=== PATIENT | male | born 1945 | race Caucasian/White ===

== ENCOUNTER → 2021-03-17 14:52 | Outpatient (BNVA) | payer OTHER, SELFPAY | PROVIDERS: PCP Nurse Practitioner Family; Visit Provider Internal Medicine | DX: J44.9 Chronic obstructive pulmonary disease, unspecified (principal); R06.00 Dyspnea, unspecified | CPT/HCPCS: 99212 ==

== ENCOUNTER → 2021-04-12 14:41 | Outpatient (BNVA) | payer OTHER, SELFPAY | PROVIDERS: PCP Nurse Practitioner Family; Visit Provider Internal Medicine | DX: R06.00 Dyspnea, unspecified (principal); J44.9 Chronic obstructive pulmonary disease, unspecified; R09.02 Hypoxemia | CPT/HCPCS: 99212 ==

== ENCOUNTER → 2021-05-09 13:47 | Outpatient (BNVA) | payer MEDICARE, SELFPAY | PROVIDERS: PCP Nurse Practitioner Family; Visit Provider Internal Medicine Cardiovascular Disease | DX: I25.10 Atherosclerotic heart disease of native coronary artery without angina pectoris (principal); J96.11 Chronic respiratory failure with hypoxia | CPT/HCPCS: 93005; 99212 ==

== ENCOUNTER → 2021-06-14 14:48 | Outpatient (BNVA) | payer OTHER, SELFPAY | PROVIDERS: PCP Nurse Practitioner Family; Visit Provider Internal Medicine | DX: J44.9 Chronic obstructive pulmonary disease, unspecified (principal); R09.02 Hypoxemia; I25.10 Atherosclerotic heart disease of native coronary artery without angina pectoris; T78.49XA Other allergy, initial encounter; Z87.891 Personal history of nicotine dependence; Z99.81 Dependence on supplemental oxygen; Z79.52 Long term (current) use of systemic steroids; Z79.899 Other long term (current) drug therapy | CPT/HCPCS: 99212 ==

== ENCOUNTER → 2021-09-12 14:48 | Outpatient (BNVA) | payer OTHER, SELFPAY | PROVIDERS: PCP Nurse Practitioner Family; Visit Provider Internal Medicine | DX: J44.9 Chronic obstructive pulmonary disease, unspecified (principal); J96.11 Chronic respiratory failure with hypoxia; R06.00 Dyspnea, unspecified | CPT/HCPCS: 99212 ==

== ENCOUNTER → 2022-01-10 14:47 | Outpatient (BNVA) | payer OTHER, SELFPAY | PROVIDERS: PCP Nurse Practitioner Family; Visit Provider Internal Medicine | DX: J44.9 Chronic obstructive pulmonary disease, unspecified (principal); I25.10 Atherosclerotic heart disease of native coronary artery without angina pectoris; R09.02 Hypoxemia; R06.00 Dyspnea, unspecified; T78.49XA Other allergy, initial encounter; Z87.891 Personal history of nicotine dependence; Z98.890 Other specified postprocedural states; Z99.81 Dependence on supplemental oxygen; Z79.52 Long term (current) use of systemic steroids; Z79.899 Other long term (current) drug therapy | CPT/HCPCS: 94618; 99212 ==

== ENCOUNTER → 2022-05-16 14:39 | Outpatient (BNVA) | payer OTHER, SELFPAY | PROVIDERS: PCP Nurse Practitioner Family; Visit Provider Internal Medicine | DX: J44.9 Chronic obstructive pulmonary disease, unspecified (principal); J96.11 Chronic respiratory failure with hypoxia; Z79.52 Long term (current) use of systemic steroids; Z79.899 Other long term (current) drug therapy; Z99.81 Dependence on supplemental oxygen | CPT/HCPCS: 99212 ==

== ENCOUNTER → 2022-05-23 13:34 | Outpatient (BNVA) | payer OTHER, SELFPAY | PROVIDERS: PCP Nurse Practitioner Family; Referring Provider Nurse Practitioner Family; Visit Provider Internal Medicine Cardiovascular Disease | DX: I25.10 Atherosclerotic heart disease of native coronary artery without angina pectoris (principal); R07.2 Precordial pain; Z79.82 Long term (current) use of aspirin; Z79.899 Other long term (current) drug therapy | CPT/HCPCS: 93005; 99212 ==

== ENCOUNTER 2022-09-14 15:53 | Outpatient (REF) | payer OTHER, SELFPAY ==
--- NOTE | ~2022-09-14 | XR_ITS ---
EXAMINATION: XR CHEST CLINICAL INFORMATION: Post Covid condition COMPARISON: Previous chest x-ray most recent December 1999 TECHNIQUE: 2 views of the chest were obtained. FINDINGS: Cardiac mediastinal contours are stable. There are increased linear retrosternal markings seen in the lateral view questionable for scarring or subsegmental atelectasis. The lungs are otherwise clear. There is no pleural effusion or pneumothorax. There are mild degenerative changes of the spine. XR/XR chest 2V IMPRESSION: Increased retrosternal linear markings on the lateral view questionable for scarring or subsegmental atelectasis.
== END 2022-09-14 15:54 | disposition home or self-care (01) ==
LOC: HO.XRAY 15:53
PROVIDERS: Visit Provider Internal Medicine
DX: J44.9 Chronic obstructive pulmonary disease, unspecified (principal); R06.00 Dyspnea, unspecified; R09.02 Hypoxemia; U09.9 Post COVID-19 condition, unspecified
CPT/HCPCS: 71046; 99212

== ENCOUNTER 2022-10-22 23:07 | Inpatient (IN) | payer OTHER, SELFPAY ==
--- NOTE | ~2022-10-22 | XR_ITS ---
EXAMINATION: XR CHEST CLINICAL INFORMATION: Shortness of breath COMPARISON: 09/14/2022 TECHNIQUE: Frontal view of the chest was obtained. FINDINGS: Lung volumes are symmetric. There is new patchy opacity at the lateral left lung base. Coarsened appearance of the interstitium is similar to prior. No evidence of pneumothorax or significant pleural effusion. Biapical scarring is noted. Cardiac size is within normal limits. Calcification is present at the aortic arch. No acute osseous findings are seen. XR/XR chest 1V IMPRESSION: New patchy left basilar opacity suspicious for developing pneumonia in the proper clinical setting.
--- NOTE | 2022-10-22 23:21 | ECG_ITS ---
Test Reason : SOB Blood Pressure : / mmHG Vent. Rate : 110 BPM Atrial Rate : 110 BPM P-R Int : 126 ms QRS Dur : 060 ms QT Int : 314 ms P-R-T Axes : 065 056 053 degrees QTc Int : 424 ms Poor data quality Sinus tachycardia Nonspecific ST abnormality Abnormal ECG When compared with ECG of 27-JAN-2019 09:25, No significant change was found Referred By: Jerardo Barbosa Electronically Signed By:CARINA EUGENE MD
--- NOTE | 2022-10-22 23:25 | ED.SOB ---
HPI - SOB/Dyspnea General Chief Complaint: Dyspnea Stated Complaint: copd Time Seen by Provider: 10/22/22 23:14 Source: patient Mode of arrival: EMS Limitations: no limitations History of Present Illness HPI Narrative: Patient is 77 years old with history of severe COPD oxygen dependent 3 liter/minutes 24 hours, COVID infection on 08/30/2022, coronary disease severe branch vessel disease without confirmation as patient unable to get further tested because of lung condition comes in for increased shortness of breath which is going on since COVID got worse last few days Patient son and grand kid got positive for influenza 3 days ago since then patient is also getting more cough and wheezing. patient noticed leg edema for last few days no chest pain no fever does have cough mostly dry sometimes with mucoid expectoration no fever no chills,patient received albuterol treatment and Solu-Medrol by EMS. Related Data Home Medications Medication Instructions Recorded Confirmed albuterol sulfate 90 mcg/actuation 2 puff inhalation Q6H PRN 03/17/21 05/23/22 aerosol inhaler (ProAir HFA) tiotropium bromide 18 mcg capsule 1 cap inhalation DAILY 03/17/21 05/23/22 with inhalation device (Spiriva with HandiHaler) aspirin 81 mg tablet,delayed 81 mg PO DAILY 05/16/22 05/23/22 release Previous Rx's Medication Instructions Recorded ipratropium 0.5 mg-albuterol 3 mg 3 ml inhalation QID SEVERE COPD 03/25/21 (2.5 mg base)/3 mL nebulization 30 days #180 mL soln metoprolol succinate 25 mg 25 mg PO DAILY 90 days #90 tabs 12/29/21 tablet,extended release 24 hr atorvastatin 40 mg tablet 40 mg PO DAILY 90 days #90 tabs 02/03/22 mometasone-formoterol HFA 200 2 puff inhalation Q12H Asthma/copd 06/08/22 mcg-5 mcg/actuation aerosol 30 days #13 grams inhaler (Dulera) prednisone 5 mg tablet 5 mg PO DAILY #90 tabs 09/04/22 prednisone 5 mg tablet 5 mg PO BID COPD 14 days #21 tabs 09/14/22 Allergies Allergy/AdvReac Type Severity Reaction Status Date / Time No Known Allergies Allergy Verified 09/14/22 16:49 [No Known Allergies*] Soap & Cleansers Allergy Unknown Rash Uncoded 09/14/22 16:49 Review of Systems Review of Systems: Yes all other systems are reviewed and are negative [facility] Past Medical History Medical History CAD (coronary artery disease) COPD (chronic obstructive pulmonary disease) Dyspnea on effort Exercise hypoxemia Post covid-19 condition, unspecified Surgical History Hx of cardiac cath Hx of cataract removal with insertion of prosthetic lens Family History Family History Father CVD (cardiovascular disease) Mother No problems noted. Social History Social History Patient Tobacco Use Status: Former Tobacco user Advance Directives: No Advance Directives Information Provided: No Physical Exam Vital Signs: Vital Signs: Last Vital Signs Temp 98.3 F 10/23/22 01:05 Pulse 116 H 10/23/22 01:05 Resp 28 H 10/23/22 01:05 BP 95/48 L 10/23/22 01:05 Pulse Ox 98 10/23/22 01:05 O2 Del Method 10/23/22 01:05 O2 Flow Rate 3 10/23/22 01:05 Oxygen Flow Rate 3 10/22/22 23:30 BMI result Body Mass Index 27.3 Appearance: Alert. Oriented X3. Moderate respiratory distress Eyes: PERRLA, No Nystagmus ENT: Pharynx normal. Oral Mucosa moist Neck: Normal inspection. Neck supple. CVS: Normal heart rate and rhythm. Pulses normal. Respiratory: Moderate respiratory distress with prolonged expiration decreased air entry bilaterally bilateral wheezing no rales Abdomen: Soft and nontender. Bowel sounds are present, no mass palpable, no CVA tenderness Skin: Skin warm and dry. Normal skin color. Normal skin turgor. Extremities: 2+ lower extremity edema. No calf tenderness Neuro: Oriented X 3. No motor deficit. No sensory deficit.No cerebellar signs , cranial nerves II-XII intact Medications Administered Generic Name Dose Route Start Last Admin Trade Name Freq PRN Reason Stop Dose Admin Sodium Chloride 1,000 mls @ 999 mls/hr 10/23/22 01:10 10/23/22 01:14 Ns IV 12/05/22 02:10 999 mls/hr .Q1H1M ONE Administration Discontinued Medications Generic Name Dose Route Start Last Admin Trade Name Noble PRN Reason Stop Dose Admin Albuterol Sulfate 5 mg/ 0 mg 10/22/22 23:22 10/22/22 23:30 Albuterol/Ipratropium 3 ml INHALE 10/22/22 23:23 1 each ONCE ONE Administration Guaifenesin/Codeine Phosphate 10 ml 10/23/22 01:07 10/23/22 01:14 Guaifen/Codeine Sf 200/20/10ml 10 Ml Liquid PO 10/23/22 01:08 10 ml ONCE ONE Administration Ceftriaxone Sodium 1 gm/ 50 mls @ 100 mls/hr 10/23/22 00:08 10/23/22 00:24 Sodium Chloride IV 10/23/22 00:37 100 mls/hr ONCE ONE Administration Oseltamivir Phosphate 75 mg 10/23/22 01:03 10/23/22 01:14 Oseltamivir Phosphate 75 Mg Capsule PO 10/23/22 01:04 75 mg ONCE ONE Administration MDM - SOB/Dyspnea MDM Narrative Medical decision making narrative: Patient with severe COPD oxygen dependent with recent COVID infection came with increased shortness of breath influenza a is positive chest x-ray showed infiltrate likely atypical viral pneumonia patient's lactic acid level was elevated likely from hypoxia patient received IV fluids and IV antibiotics along with Tamiflu will admit patient for COPD, influenza pneumonia Differential Diagnosis Differential diagnosis: Likely acute exacerbation of chronic obstructive airways disease and congestive heart failure Medical Records Attestation: I reviewed the patient's medical records. Lab Data Attestation: I reviewed the patient's lab results. Result diagrams: 10/22/22 23:28 10/22/22 23:28 Labs: Lab Results 10/22/22 10/22/22 10/22/22 Range/Units 23:28 23:28 23:28 WBC 13.9 H (4.8-10.8) X10*3/uL RBC 2.89 L (4.60-5.80) X10*6/uL Hgb 9.0 L (14.0-18.0) g/dl Hct 27.5 L (42.0-52.0) % MCV 95.2 (80.0-98.0) fL MCH 31.1 (27.0-33.0) pg MCHC 32.7 (31.0-36.0) g/dl RDW 22.9 H (11.0-16.0) % Plt Count 246 (160-400) X10*3/uL MPV 10.3 (9.4-12.4) fL Immature Gran % (Auto) 0.6 H (0.0-0.4) % Neut % (Auto) 76.2 H (45-73) % Lymph % (Auto) 12.2 L (20-40) % [place] % (Auto) 10.5 (2-11) % Eos % (Auto) 0.1 (0-4) % Baso % (Auto) 0.4 (0-2) % Lymph # (Auto) 1.7 (1.2-4.9) X10*3/uL [place] # (Auto) 1.5 H (0.1-1.2) X10*3/uL Eos # (Auto) 0.0 (0.0-0.4) X10*3/uL Baso # (Auto) 0.1 (0.0-0.2) X10*3/uL Abs Immat Gran (auto) 0.08 H (0.00-0.03) X10*3/uL Absolute Neuts (auto) 10.6 H (2.0-8.3) x10*3/uL Absolute Nucleated RBC 0.060 H (0.0-0.012) X10*3/uL Nucleated RBC % (auto) 0.4 H (0.0-0.2) /100WBC PT 12.8 (10.0-13.1) SEC INR 1.1 (0.9-1.1) VBG pH (7.32-7.43) VBG pCO2 mmHg VBG pO2 mmHg VBG HCO3 (22-26) mmol/L VBG O2 Saturation % VBG Base Excess mmol/L Sodium 139 (135-145) mmol/L Potassium 4.8 (3.3-5.1) mmol/L Chloride 102 (96-108) mmol/L Carbon Dioxide 23 (22-29) mmol/L Anion Gap 19 (12-20) BUN 15 (9-16) mg/dL Creatinine 0.71 (0.5-1.4) mg/dL Estim Creat Clear Calc 88.5 Estimated GFR > 60 Random Glucose 90 (60-115) mg/dL Lactic Acid (0.5-2.0) mmol/L Calcium 8.6 (8.4-10.2) mg/dL Total Bilirubin 1.6 H (0.0-1.0) mg/dL AST 37 (5-37) U/L ALT 31 (0-40) U/L Alkaline Phosphatase 71 (39-117) U/L Troponin I High Sens (<3.5-35.0) ng/L B-Natriuretic Peptide (<100) pg/mL Total Protein 6.0 L (6.5-8.0) g/dL Albumin 3.7 (3.5-5.0) g/dL Influenza Type A (PCR) (Negative) Influenza Type B (PCR) (Negative) RSV RNA Qual (PCR) (Negative) SARS-CoV-2 RNA (RT-PCR) (Negative) 10/22/22 10/22/22 10/22/22 Range/Units 23:28 23:28 23:28 WBC (4.8-10.8) X10*3/uL RBC (4.60-5.80) X10*6/uL Hgb (14.0-18.0) g/dl Hct (42.0-52.0) % MCV (80.0-98.0) fL MCH (27.0-33.0) pg MCHC (31.0-36.0) g/dl RDW (11.0-16.0) % Plt Count (160-400) X10*3/uL MPV (9.4-12.4) fL Immature Gran % (Auto) (0.0-0.4) % Neut % (Auto) (45-73) % Lymph % (Auto) (20-40) % [place] % (Auto) (2-11) % Eos % (Auto) (0-4) % Baso % (Auto) (0-2) % Lymph # (Auto) (1.2-4.9) X10*3/uL [place] # (Auto) (0.1-1.2) X10*3/uL Eos # (Auto) (0.0-0.4) X10*3/uL Baso # (Auto) (0.0-0.2) X10*3/uL Abs Immat Gran (auto) (0.00-0.03) X10*3/uL Absolute Neuts (auto) (2.0-8.3) x10*3/uL Absolute Nucleated RBC (0.0-0.012) X10*3/uL Nucleated RBC % (auto) (0.0-0.2) /100WBC PT (10.0-13.1) SEC INR (0.9-1.1) VBG pH (7.32-7.43) VBG pCO2 mmHg VBG pO2 mmHg VBG HCO3 (22-26) mmol/L VBG O2 Saturation % VBG Base Excess mmol/L Sodium (135-145) mmol/L Potassium (3.3-5.1) mmol/L Chloride (96-108) mmol/L Carbon Dioxide (22-29) mmol/L Anion Gap (12-20) BUN (9-16) mg/dL Creatinine (0.5-1.4) mg/dL Estim Creat Clear Calc Estimated GFR Random Glucose (60-115) mg/dL Lactic Acid 3.0 H* (0.5-2.0) mmol/L Calcium (8.4-10.2) mg/dL Total Bilirubin (0.0-1.0) mg/dL AST (5-37) U/L ALT (0-40) U/L Alkaline Phosphatase (39-117) U/L Troponin I High Sens 14.3 (<3.5-35.0) ng/L B-Natriuretic Peptide 145 H (<100) pg/mL Total Protein (6.5-8.0) g/dL Albumin (3.5-5.0) g/dL Influenza Type A (PCR) (Negative) Influenza Type B (PCR) (Negative) RSV RNA Qual (PCR) (Negative) SARS-CoV-2 RNA (RT-PCR) (Negative) 10/22/22 10/22/22 Range/Units 23:33 23:45 WBC (4.8-10.8) X10*3/uL RBC (4.60-5.80) X10*6/uL Hgb (14.0-18.0) g/dl Hct (42.0-52.0) % MCV (80.0-98.0) fL MCH (27.0-33.0) pg MCHC (31.0-36.0) g/dl RDW (11.0-16.0) % Plt Count (160-400) X10*3/uL MPV (9.4-12.4) fL Immature Gran % (Auto) (0.0-0.4) % Neut % (Auto) (45-73) % Lymph % (Auto) (20-40) % [place] % (Auto) (2-11) % Eos % (Auto) (0-4) % Baso % (Auto) (0-2) % Lymph # (Auto) (1.2-4.9) X10*3/uL [place] # (Auto) (0.1-1.2) X10*3/uL Eos # (Auto) (0.0-0.4) X10*3/uL Baso # (Auto) (0.0-0.2) X10*3/uL Abs Immat Gran (auto) (0.00-0.03) X10*3/uL Absolute Neuts (auto) (2.0-8.3) x10*3/uL Absolute Nucleated RBC (0.0-0.012) X10*3/uL Nucleated RBC % (auto) (0.0-0.2) /100WBC PT (10.0-13.1) SEC INR (0.9-1.1) VBG pH 7.35 (7.32-7.43) VBG pCO2 49 mmHg VBG pO2 47 mmHg VBG HCO3 27 H (22-26) mmol/L VBG O2 Saturation 68.0 % VBG Base Excess 1.5 mmol/L Sodium (135-145) mmol/L Potassium (3.3-5.1) mmol/L Chloride (96-108) mmol/L Carbon Dioxide (22-29) mmol/L Anion Gap (12-20) BUN (9-16) mg/dL Creatinine (0.5-1.4) mg/dL Estim Creat Clear Calc Estimated GFR Random Glucose (60-115) mg/dL Lactic Acid (0.5-2.0) mmol/L Calcium (8.4-10.2) mg/dL Total Bilirubin (0.0-1.0) mg/dL AST (5-37) U/L ALT (0-40) U/L Alkaline Phosphatase (39-117) U/L Troponin I High Sens (<3.5-35.0) ng/L B-Natriuretic Peptide (<100) pg/mL Total Protein (6.5-8.0) g/dL Albumin (3.5-5.0) g/dL Influenza Type A (PCR) POSITIVE A (Negative) Influenza Type B (PCR) NEGATIVE (Negative) RSV RNA Qual (PCR) NEGATIVE (Negative) SARS-CoV-2 RNA (RT-PCR) NEGATIVE (Negative) ECG Data Attestation: I personally reviewed and interpreted this ECG as follows: Interpretation: Sinus tachycardia heart rate 110 beats per minute normal interval normal axis no acute ST wave changes no acute ischemia Critical Care Time Critical Care Time Critical Care Time: Yes Total Critical Care Time: 60 Attestation: The patient was critically ill with a high probability of imminent or life threatening deterioration. I spent greater than 70 minutes of discontinuous time evaluating the patient,delivering critical care at the bedside, discussing and evaluating pertinent data with consultants. Critical care time does not include time spent performing separately billable procedures or teaching. Total time spent performing critical care was 60 minutes. Discharge Plan Discharge Clinical Impression: COPD (chronic obstructive pulmonary disease), Post covid-19 condition, unspecified, Influenza A, Pneumonia due to influenza A virus Patient Disposition: Admitted As Inpatient
[2022-10-22 23:30] VITALS: BP 153/72; PULSE 114; RESP 40; O2SAT 100; BMI 27.3
[2022-10-22] MEDS: Albuterol Sulfate 5 MG, Albuterol/Iprat 2.5/0.5MG 3 ML 3 ML INHALE (23:30)
[2022-10-22 23:31] VITALS: PULSE 111; RESP 28; O2SAT 99
[2022-10-22 23:34] LABS: MANUAL DIFF FLAG NO
[2022-10-22 23:35] LABS: Basophils Absolute Auto 0.1 X10*3/uL (0.0-0.2); Basophils Percent Auto 0.4 % (0-2); Eosinophils Percent Auto 0.1 % (0-4); Hematocrit 27.5 % (42.0-52.0); Imm Gran Abs Auto 0.08 X10*3/uL (0.00-0.03); Imm Gran Pct Auto 0.6 % (0.0-0.4); Lymphocytes Absolute Auto 1.7 X10*3/uL (1.2-4.9); Lymphocytes Percent Auto 12.2 % (20-40); Mean Corpuscular HGB Conc 32.7 g/dl (31.0-36.0); Mean Corpuscular Hemoglobin 31.1 pg (27.0-33.0); Mean Corpuscular Volume 95.2 fL (80.0-98.0); Mean Platelet Volume 10.3 fL (9.4-12.4); Monocytes Absolute Auto 1.5 X10*3/uL (0.1-1.2); Monocytes Percent Auto 10.5 % (2-11); NRBC Pct Auto 0.4 /100WBC (0.0-0.2); Neutrophils Absolute Auto 10.6 x10*3/uL (2.0-8.3); Neutrophils Percent Auto 76.2 % (45-73); Platelet Count 246 X10*3/uL (160-400); Red Blood Count 2.89 X10*6/uL (4.60-5.80); Red Cell Distribution Width 22.9 % (11.0-16.0); White Blood Count 13.9 X10*3/uL (4.8-10.8)
[2022-10-22 23:39] LABS: VBG Base Excess 1.5 mmol/L; VBG HCO3 27 mmol/L (22-26); VBG pCO2 49 mmHg; VBG pH 7.35 (7.32-7.43); VBG pO2 47 mmHg
[2022-10-22 23:39] LABS: Venous Blood Gas Refer to POC result
[2022-10-22 23:40] LABS: INTERNATIONAL NORM RATIO 1.1 (0.9-1.1); Prothrombin Time 12.8 SEC (10.0-13.1)
[2022-10-22 23:53] LABS: Troponin-I High Sensitivity 14.3 ng/L (<3.5-35.0)
[2022-10-22 23:57] LABS: B Type Natriuretic Peptide 145 pg/mL (<100)
[2022-10-22 23:59] LABS: Alanine Aminotransferase 31 U/L (0-40); Albumin Level 3.7 g/dL (3.5-5.0); Alkaline Phosphatase 71 U/L (39-117); Anion Gap 19 (12-20); Aspartate Amino Transferase 37 U/L (5-37); Blood Urea Nitrogen 15 mg/dL (9-16); Calcium 8.6 mg/dL (8.4-10.2); Carbon Dioxide 23 mmol/L (22-29); Chloride 102 mmol/L (96-108); Creatinine Clr Calc Pharmacy 88.5; Estimated Glomerular Filt Rate > 60; Glucose Random 90 mg/dL (60-115); Potassium 4.8 mmol/L (3.3-5.1); Sodium 139 mmol/L (135-145)
[2022-10-23] VITALS (10 sets, daily range): BP systolic 95–124; BP diastolic 45–60; PULSE 76–116; RESP 12–28; TEMP 36.1–37.3; O2SAT 97–100; BMI 21.6
[2022-10-23] MEDS: cefTRIAXone sodium 1 GM in 0.9 % Sodium Chloride 50 ML IV (00:24)
[2022-10-23 00:43] LABS: Influenza A PCR POSITIVE (Negative); Influenza B PCR NEGATIVE (Negative); Resp Syncy Virus RNA Qual PCR NEGATIVE (Negative); SARS COV2 PCR INHOUSE NEGATIVE (Negative)
[2022-10-23] MEDS: guaiFEN/Codeine SF 200/20/10ML 10 ML LIQUID PO (01:14)
[2022-10-23] MEDS: 0.9 % Sodium Chloride 1,000 ML 999 ML IV ×2 (01:14→02:55)
[2022-10-23] MEDS: Oseltamivir Phosphate 75 MG CAPSULE PO ×3 (01:14→21:42)
[2022-10-23 01:15] LABS: Bilirubin Total 1.6 mg/dL (0.0-1.0)
[2022-10-23 01:31] LABS: Reflex Lactate? Lactic Acid Added
--- NOTE | 2022-10-23 02:09 | PM.IMHP ---
History of Present Illness Date of Service: 10/23/22 Chief Complaint: Dyspnea This is a 77-year-old male with pertinent history of chronic hypoxemic respiratory failure due to COPD, 3 L baseline home oxygen, coronary artery disease who presents to the emergency department for evaluation of dyspnea. Patient states his son and grandson got tested positive for flu about 3 days ago. Patient initially had runny nose and watering of eyes. It progressed and he started having productive cough with yellowish sputum production. Also had associated dyspnea, worse with exertion and wheezing. Patient normally uses 3 L baseline oxygen at home but noticed worsening dyspnea even on supplemental oxygen. Patient denies chest discomfort, palpitations, abdominal pain, changes in urinary or bowel habits. No nausea vomiting. Does not know if he had a fever. In the emergency department, patient requiring 4 L supplemental oxygen to maintain sats above 88%. Imaging with left-sided consolidation Review of Systems Constitutional: Constitutional: Reports chills Cardiovascular: Cardiovascular: Reports no additional cardiovascular complaints, Reports dyspnea and Reports dyspnea on exertion Respiratory: Respiratory: Reports cough, Reports excessive phlegm production, Reports dyspnea, Reports dyspnea on exertion and Reports wheezing Gastrointestinal: Gastrointestinal: Reports no additional gastrointestinal complaints Genitourinary: Genitourinary: Reports no additional male genitourinary complaints Allergic/Immunologic: Allergic/Immunologic: Reports wheezing [facility] Medical History CAD (coronary artery disease) COPD (chronic obstructive pulmonary disease) Dyspnea on effort Exercise hypoxemia Post covid-19 condition, unspecified Family History Father CVD (cardiovascular disease) Mother No problems noted. Surgical History Hx of cardiac cath Hx of cataract removal with insertion of prosthetic lens Social History Patient Tobacco Use Status: Former Tobacco user Advance Directives: No Advance Directives Information Provided: No Meds Allergies Allergy/AdvReac Type Severity Reaction Status Date / Time No Known Allergies Allergy Verified 09/14/22 16:49 [No Known Allergies*] Soap & Cleansers Allergy Unknown Rash Uncoded 09/14/22 16:49 Active Medications: Current Medications Acetaminophen (Acetaminophen 325 Mg Tablet) 650 mg PO Q6H PRN PRN Reason: Pain, Mild (Pain Scale 1-3) Albuterol/Ipratropium (Albuterol/Iprat 2.5/0.5mg 3 Ml Ampul.Neb) 3 ml INHALE RQ4H WHILE AWAKE [facility] Benzonatate (Benzonatate 100 Mg Capsule) 200 mg PO TID PRN PRN Reason: Cough Enoxaparin Sodium (Enoxaparin Sodium 40 Mg/0.4 Ml Syringe) 40 mg SUBCUT Q24H [facility] Sodium Chloride (Ns) 1,000 mls @ 999 mls/hr IV .Q1H1M ONE Stop: 10/23/22 02:10 Last Admin: 10/23/22 01:14 Dose: 999 mls/hr Ceftriaxone Sodium 1 gm/ (Sodium Chloride) 50 mls @ 100 mls/hr IV DAILY [facility] Azithromycin 500 mg/ Sodium (Chloride) 250 mls @ 125 mls/hr IV Q24H [facility] Melatonin (Melatonin 3 Mg Tablet) 6 mg PO BEDTIME PRN PRN Reason: Insomnia Methylprednisolone Sodium Succinate (Methylprednisolone Sod Succ 40 Mg/Ml Vial) 40 mg IVPUSH BID [facility] Ondansetron HCl (Ondansetron Hcl 4 Mg/2 Ml Vial) 4 mg IVPUSH Q8H PRN PRN Reason: Nausea and Vomiting Pharmacy Consult (Consult Rx Perform Med Rec) 1 each MISCELLANE ONCE PRN PRN Reason: Consult order Sodium Chloride (0.9 % Sodium Chloride Flush 3 Ml Syringe) 3 ml IVFLUSH QSHIFT [facility] Home Medications Medication Instructions Recorded Confirmed Last Taken Type albuterol sulfate 90 mcg/actuation 2 puff inhalation Q6H PRN 03/17/21 05/23/22 Unknown History aerosol inhaler (ProAir HFA) tiotropium bromide 18 mcg capsule 1 cap inhalation DAILY 03/17/21 05/23/22 Unknown History with inhalation device (Spiriva with HandiHaler) aspirin 81 mg tablet,delayed 81 mg PO DAILY 05/16/22 05/23/22 Unknown History release Physical Exam Vital Signs and Narrative: Vital Signs: Last Vital Signs Temp 98.3 F 10/23/22 01:05 Pulse 116 H 10/23/22 01:05 Resp 28 H 10/23/22 01:05 BP 95/48 L 10/23/22 01:05 Pulse Ox 98 10/23/22 01:05 O2 Del Method 10/23/22 01:05 O2 Flow Rate 3 10/23/22 01:05 Oxygen Flow Rate 3 10/22/22 23:30 BMI result Body Mass Index 27.3 Elderly male lying in bed in mild distress on 4 L supplemental oxygen Neck supple, no JVD Tachycardic with regular rhythm, S1-S2 heard Left-sided inspiratory crackles with bilateral expiratory wheezing Abdomen soft nontender, no guarding, no rigidity Patient is awake, alert and oriented to self, place, time and person ; no focal motor deficit Psych: Normal mood Results Labs CBC and Chem 7: 10/22/22 23:28 10/22/22 23:28 Labs: Laboratory Results - last 24 hr 10/22/22 10/22/22 10/22/22 23:28 23:28 23:28 MCV 95.2 MCH 31.1 MCHC 32.7 RDW 22.9 H Plt Count 246 MPV 10.3 Immature Gran % (Auto) 0.6 H Neut % (Auto) 76.2 H Lymph % (Auto) 12.2 L [place] % (Auto) 10.5 Eos % (Auto) 0.1 Baso % (Auto) 0.4 Lymph # (Auto) 1.7 [place] # (Auto) 1.5 H Eos # (Auto) 0.0 Baso # (Auto) 0.1 Abs Immat Gran (auto) 0.08 H Absolute Neuts (auto) 10.6 H Absolute Nucleated RBC 0.060 H Nucleated RBC % (auto) 0.4 H PT 12.8 INR 1.1 VBG pH VBG pCO2 VBG pO2 VBG HCO3 VBG O2 Saturation VBG Base Excess Anion Gap 19 Estim Creat Clear Calc 88.5 Estimated GFR > 60 Random Glucose 90 Lactic Acid Calcium 8.6 Total Bilirubin 1.6 H AST 37 ALT 31 Alkaline Phosphatase 71 Troponin I High Sens B-Natriuretic Peptide Total Protein 6.0 L Albumin 3.7 Influenza Type A (PCR) Influenza Type B (PCR) RSV RNA Qual (PCR) SARS-CoV-2 RNA (RT-PCR) 10/22/22 10/22/22 10/22/22 23:28 23:28 23:28 MCV MCH MCHC RDW Plt Count MPV Immature Gran % (Auto) Neut % (Auto) Lymph % (Auto) [place] % (Auto) Eos % (Auto) Baso % (Auto) Lymph # (Auto) [place] # (Auto) Eos # (Auto) Baso # (Auto) Abs Immat Gran (auto) Absolute Neuts (auto) Absolute Nucleated RBC Nucleated RBC % (auto) PT INR VBG pH VBG pCO2 VBG pO2 VBG HCO3 VBG O2 Saturation VBG Base Excess Anion Gap Estim Creat Clear Calc Estimated GFR Random Glucose Lactic Acid 3.0 H* Calcium Total Bilirubin AST ALT Alkaline Phosphatase Troponin I High Sens 14.3 B-Natriuretic Peptide 145 H Total Protein Albumin Influenza Type A (PCR) Influenza Type B (PCR) RSV RNA Qual (PCR) SARS-CoV-2 RNA (RT-PCR) 10/22/22 10/22/22 23:33 23:45 MCV MCH MCHC RDW Plt Count MPV Immature Gran % (Auto) Neut % (Auto) Lymph % (Auto) [place] % (Auto) Eos % (Auto) Baso % (Auto) Lymph # (Auto) [place] # (Auto) Eos # (Auto) Baso # (Auto) Abs Immat Gran (auto) Absolute Neuts (auto) Absolute Nucleated RBC Nucleated RBC % (auto) PT INR VBG pH 7.35 VBG pCO2 49 VBG pO2 47 VBG HCO3 27 H VBG O2 Saturation 68.0 VBG Base Excess 1.5 Anion Gap Estim Creat Clear Calc Estimated GFR Random Glucose Lactic Acid Calcium Total Bilirubin AST ALT Alkaline Phosphatase Troponin I High Sens B-Natriuretic Peptide Total Protein Albumin Influenza Type A (PCR) POSITIVE A Influenza Type B (PCR) NEGATIVE RSV RNA Qual (PCR) NEGATIVE SARS-CoV-2 RNA (RT-PCR) NEGATIVE Imaging Radiologist's Impressions: Impressions Chest X-Ray 10/22/22 23:50 IMPRESSION: New patchy left basilar opacity suspicious for developing pneumonia in the proper clinical setting. Assessment and Plan (1) Influenza A: Status: Acute (2) Chronic respiratory failure with hypoxia: Status: Acute (3) CAD (coronary artery disease): Status: Acute (4) COPD (chronic obstructive pulmonary disease): Status: Acute (5) CAP (community acquired pneumonia): Status: Acute Plan This is a 77-year-old male with pertinent history of chronic hypoxemic respiratory failure due to COPD, 3 L baseline home oxygen, coronary artery disease who presents to the emergency department for evaluation of dyspnea. #. Acute on chronic hypoxemic respiratory failure due to: #. Sepsis due to influenza A pneumonia with bacterial superinfection leading to: #. Acute exacerbation of COPD -will admit patient and initiate empiric IV antibiotics. Sputum culture pending. Resuscitated with IV crystalloids in the ER. Lactic acid and blood cultures obtained -initiated systemic steroids. Scheduled and p.r.n. DuoNebs. -currently on 4 L supplemental oxygen, at baseline home 3 L oxygen. Monitor and wean as tolerated, maintain oxygen saturation greater than 88% -initiating Tamiflu #. Type A lactic acidosis -trended down with IV fluid resuscitation #. Coronary artery disease: On beta-kelly, antiplatelet therapy and statin #. Chronic normocytic anemia -Hb above transfusion threshold Med rec pending DVT prophylaxis: Lovenox 40 mg daily Cardiac diet Full code Admit as inpatient and will require two night minimum hospital stay for IV antibiotics and supplemental oxygen Quality Stroke Does the patient have a stroke diagnosis?: No VTE Prior VTE?: No VTE Risk Level:: Medical - moderate - high VTE Device Contraindication: Treatment Not Indicated VTE Drug Contraindication: N/A - Med Ordered
[2022-10-23 02:10] LABS: ~Lactic Acid-LAB USE ONLY 1.9 mmol/L (0.5-2.0)
[2022-10-23] MEDS: Enoxaparin Sodium 40 MG/0.4 ML SYRINGE SUBCUT (02:54)
[2022-10-23] MEDS: Azithromycin 500 MG in 0.9 % Sodium Chloride 250 ML 125 MG IV (02:54)
[2022-10-23 06:29] LABS: Basophils Percent Auto 0.2 % (0-2); Hemoglobin 8.4 g/dl (14.0-18.0); Imm Gran Abs Auto 0.08 X10*3/uL (0.00-0.03); Imm Gran Pct Auto 0.6 % (0.0-0.4); Lymphocytes Absolute Auto 0.3 X10*3/uL (1.2-4.9); Lymphocytes Percent Auto 2.5 % (20-40); MANUAL DIFF FLAG SCAN; Mean Corpuscular HGB Conc 33.6 g/dl (31.0-36.0); Mean Corpuscular Hemoglobin 31.9 pg (27.0-33.0); Mean Corpuscular Volume 95.1 fL (80.0-98.0); Mean Platelet Volume 10.6 fL (9.4-12.4); Monocytes Absolute Auto 0.5 X10*3/uL (0.1-1.2); Monocytes Percent Auto 3.6 % (2-11); Neutrophils Percent Auto 93.1 % (45-73); Platelet Count 219 X10*3/uL (160-400); Red Blood Count 2.63 X10*6/uL (4.60-5.80); Red Cell Distribution Width 22.5 % (11.0-16.0); SCAN SMEAR FLAG 1; White Blood Count 12.8 X10*3/uL (4.8-10.8)
[2022-10-23 06:42] LABS: Anion Gap 13 (12-20); Blood Urea Nitrogen 15 mg/dL (9-16); Calcium 7.7 mg/dL (8.4-10.2); Carbon Dioxide 24 mmol/L (22-29); Chloride 108 mmol/L (96-108); Creatinine Clr Calc Pharmacy 92.4; Estimated Glomerular Filt Rate > 60; Glucose Random 119 mg/dL (60-115); Potassium 4.5 mmol/L (3.3-5.1); Sodium 140 mmol/L (135-145)
[2022-10-23 06:54] LABS: SLIDE REVIEW VERIFIED
[2022-10-23] MEDS: Albuterol/Iprat 2.5/0.5MG 3 ML AMPUL.NEB INHALE ×3 (07:48→18:49)
[2022-10-23] MEDS: methylPREDNISolone Sod Succ 40 MG/ML VIAL IVPUSH ×2 (08:11→21:42)
[2022-10-23] MEDS: 0.9 % Sodium Chloride Flush 3 ML SYRINGE IVFLUSH ×2 (08:11→10:22)
[2022-10-23] MEDS: Acetaminophen 325 MG TABLET 650 MG PO (08:16)
--- NOTE | 2022-10-23 08:36 | PHA.MEDREC ---
Pharmacy Consult ? Medication Reconciliation Pharmacy has completed the medication reconciliation. Patient confirmed medications. [facility] Nafisa Bhandari PharmD
--- NOTE | 2022-10-23 09:45 | PC.NURSE ---
report given to tashi pt to of04
[2022-10-23] MEDS: Metoprolol Succinate ER 25 MG TAB.ER.24H PO (10:21)
[2022-10-23] MEDS: Atorvastatin Calcium 40 MG TABLET PO (10:22)
[2022-10-23] MEDS: Aspirin Enteric Coated 81 MG TABLET.DR PO (10:22)
--- NOTE | 2022-10-23 11:54 | MHC.CM.PN ---
Patient is here with (+) Influenza and not reachable by any listed phone numbers; CM spoke with Son/HCP/Russel @ his listed #. Patient lives in a house with his Son, Jzsspiyo-mg-Swn and Grandchild and he required no services nor [employer]. Home, self care is the goal and CM has initiated and will follow for dc planning. PCP is Dr. Marty Cassidy in [place] and Patient has received Affaredelgiorno/WellMetris vax x3.
--- NOTE | 2022-10-23 13:14 | HO.PM.IMPN ---
Subjective Subjective Date of Service: 10/23/22 Interval History: cc: sob interval history:still sob Cardiovascular Cardiovascular: Reports no additional cardiovascular complaints Gastrointestinal Gastrointestinal: Reports no additional gastrointestinal complaints Physical Exam Vital Signs: Vital Signs: Last Vital Signs Temp 97.5 F 10/23/22 10:38 Pulse 104 H 10/23/22 10:38 Resp 16 10/23/22 10:38 BP 124/60 10/23/22 10:38 Pulse Ox 99 10/23/22 10:38 O2 Del Method 10/23/22 10:38 O2 Flow Rate 3 10/23/22 10:38 Oxygen Flow Rate 3 10/22/22 23:30 BMI result Body Mass Index 27.3 General: AO X 3, no acute distress Resp: wheezing bilateral, no accessory muscles used CVS: S1,S2,RRR GI: soft, non tender, non distended Neuro: motor grossly intact, alert Psych: appropriate affect, appropriate insight Objective Data Active Medications Acetaminophen (Acetaminophen 325 Mg Tablet) 650 mg PO Q6H PRN PRN Reason: Pain, Mild (Pain Scale 1-3) Last Admin: 10/23/22 08:16 Dose: 650 mg Documented By: MEMO Albuterol/Ipratropium (Albuterol/Iprat 2.5/0.5mg 3 Ml Ampul.Neb) 3 ml INHALE RQ4H WHILE AWAKE [facility] Last Admin: 10/23/22 11:18 Dose: Not Given Documented By: JIMMY Non-Admin Reason: pt refusedd states makes him cough more Albuterol/Ipratropium (Albuterol/Iprat 2.5/0.5mg 3 Ml Ampul.Neb) 3 ml INHALE RQ4H PRN PRN Reason: Wheezing Aspirin (Aspirin Enteric Coated 81 Mg Tablet.) 81 mg PO DAILY [facility] Last Admin: 10/23/22 10:22 Dose: 81 mg Documented By: JANKI Atorvastatin Calcium (Atorvastatin Calcium 40 Mg Tablet) 40 mg PO DAILY [facility] Last Admin: 10/23/22 10:22 Dose: 40 mg Documented By: JANKI Benzonatate (Benzonatate 100 Mg Capsule) 200 mg PO TID PRN PRN Reason: Cough Enoxaparin Sodium (Enoxaparin Sodium 40 Mg/0.4 Ml Syringe) 40 mg SUBCUT Q24H [facility] Last Admin: 10/23/22 02:54 Dose: 40 mg Documented By: GERMAINE Ceftriaxone Sodium 1 gm/ (Sodium Chloride) 50 mls @ 100 mls/hr IV Q24H [facility] Azithromycin 500 mg/ Sodium (Chloride) 250 mls @ 125 mls/hr IV Q24H [facility] Last Infusion: 10/23/22 06:51 Dose: 0 mls/hr Documented By: GERMAINE Melatonin (Melatonin 3 Mg Tablet) 6 mg PO BEDTIME PRN PRN Reason: Insomnia Methylprednisolone Sodium Succinate (Methylprednisolone Sod Succ 40 Mg/Ml Vial) 40 mg IVPUSH BID [facility] Last Admin: 10/23/22 08:11 Dose: 40 mg Documented By: MEMO Metoprolol Succinate (Metoprolol Succinate Er 25 Mg Tab.Er.24h) 25 mg PO DAILY [facility]; Protocol Last Admin: 10/23/22 10:21 Dose: 25 mg Documented By: JANKI Ondansetron HCl (Ondansetron Hcl 4 Mg/2 Ml Vial) 4 mg IVPUSH Q8H PRN PRN Reason: Nausea and Vomiting Oseltamivir Phosphate (Oseltamivir Phosphate 75 Mg Capsule) 75 mg PO BID [facility] Last Admin: 10/23/22 08:11 Dose: 75 mg Documented By: MEMO Pharmacy Consult (Consult Rx Perform Med Rec) 1 each MISCELLANE ONCE PRN PRN Reason: Consult order Sodium Chloride (0.9 % Sodium Chloride Flush 3 Ml Syringe) 3 ml IVFLUSH QSHIFT [facility] Last Admin: 10/23/22 10:22 Dose: 3 ml Documented By: JANKI Labs CBC & Chem 7: 10/23/22 06:03 10/23/22 06:03 Labs: Laboratory Results - last 24 hr 10/22/22 10/22/22 10/22/22 23:28 23:28 23:28 MCV 95.2 MCH 31.1 MCHC 32.7 RDW 22.9 H Plt Count 246 MPV 10.3 Immature Gran % (Auto) 0.6 H Neut % (Auto) 76.2 H Lymph % (Auto) 12.2 L [place] % (Auto) 10.5 Eos % (Auto) 0.1 Baso % (Auto) 0.4 Lymph # (Auto) 1.7 [place] # (Auto) 1.5 H Eos # (Auto) 0.0 Baso # (Auto) 0.1 Abs Immat Gran (auto) 0.08 H Absolute Neuts (auto) 10.6 H Absolute Nucleated RBC 0.060 H Nucleated RBC % (auto) 0.4 H Smear Tech's Comments PT 12.8 INR 1.1 VBG pH VBG pCO2 VBG pO2 VBG HCO3 VBG O2 Saturation VBG Base Excess Anion Gap 19 Estim Creat Clear Calc 88.5 Estimated GFR > 60 Random Glucose 90 Lactic Acid Lactic Acid F/U @ 2Hr Calcium 8.6 Total Bilirubin 1.6 H AST 37 ALT 31 Alkaline Phosphatase 71 Troponin I High Sens B-Natriuretic Peptide Total Protein 6.0 L Albumin 3.7 Influenza Type A (PCR) Influenza Type B (PCR) RSV RNA Qual (PCR) SARS-CoV-2 RNA (RT-PCR) 10/22/22 10/22/22 10/22/22 23:28 23:28 23:28 MCV MCH MCHC RDW Plt Count MPV Immature Gran % (Auto) Neut % (Auto) Lymph % (Auto) [place] % (Auto) Eos % (Auto) Baso % (Auto) Lymph # (Auto) [place] # (Auto) Eos # (Auto) Baso # (Auto) Abs Immat Gran (auto) Absolute Neuts (auto) Absolute Nucleated RBC Nucleated RBC % (auto) Smear Tech's Comments PT INR VBG pH VBG pCO2 VBG pO2 VBG HCO3 VBG O2 Saturation VBG Base Excess Anion Gap Estim Creat Clear Calc Estimated GFR Random Glucose Lactic Acid 3.0 H* Lactic Acid F/U @ 2Hr Calcium Total Bilirubin AST ALT Alkaline Phosphatase Troponin I High Sens 14.3 B-Natriuretic Peptide 145 H Total Protein Albumin Influenza Type A (PCR) Influenza Type B (PCR) RSV RNA Qual (PCR) SARS-CoV-2 RNA (RT-PCR) 10/22/22 10/22/22 10/23/22 23:33 23:45 01:48 MCV MCH MCHC RDW Plt Count MPV Immature Gran % (Auto) Neut % (Auto) Lymph % (Auto) [place] % (Auto) Eos % (Auto) Baso % (Auto) Lymph # (Auto) [place] # (Auto) Eos # (Auto) Baso # (Auto) Abs Immat Gran (auto) Absolute Neuts (auto) Absolute Nucleated RBC Nucleated RBC % (auto) Smear Tech's Comments PT INR VBG pH 7.35 VBG pCO2 49 VBG pO2 47 VBG HCO3 27 H VBG O2 Saturation 68.0 VBG Base Excess 1.5 Anion Gap Estim Creat Clear Calc Estimated GFR Random Glucose Lactic Acid Lactic Acid F/U @ 2Hr 1.9 Calcium Total Bilirubin AST ALT Alkaline Phosphatase Troponin I High Sens B-Natriuretic Peptide Total Protein Albumin Influenza Type A (PCR) POSITIVE A Influenza Type B (PCR) NEGATIVE RSV RNA Qual (PCR) NEGATIVE SARS-CoV-2 RNA (RT-PCR) NEGATIVE 10/23/22 10/23/22 06:03 06:03 MCV 95.1 MCH 31.9 MCHC 33.6 RDW 22.5 H Plt Count 219 MPV 10.6 Immature Gran % (Auto) 0.6 H Neut % (Auto) 93.1 H Lymph % (Auto) 2.5 L [place] % (Auto) 3.6 Eos % (Auto) 0.0 Baso % (Auto) 0.2 Lymph # (Auto) 0.3 L [place] # (Auto) 0.5 Eos # (Auto) 0.0 Baso # (Auto) 0.0 Abs Immat Gran (auto) 0.08 H Absolute Neuts (auto) 12.0 H Absolute Nucleated RBC 0.000 Nucleated RBC % (auto) 0.0 Smear Tech's Comments VERIFIED PT INR VBG pH VBG pCO2 VBG pO2 VBG HCO3 VBG O2 Saturation VBG Base Excess Anion Gap 13 Estim Creat Clear Calc 92.4 Estimated GFR > 60 Random Glucose 119 H Lactic Acid Lactic Acid F/U @ 2Hr Calcium 7.7 L D Total Bilirubin AST ALT Alkaline Phosphatase Troponin I High Sens B-Natriuretic Peptide Total Protein Albumin Influenza Type A (PCR) Influenza Type B (PCR) RSV RNA Qual (PCR) SARS-CoV-2 RNA (RT-PCR) Assessment and Plan (1) Influenza A: Status: Acute Plan 77-year-old male with pertinent history of chronic hypoxemic respiratory failure due to COPD, 3 L baseline home oxygen, coronary artery disease who presented to the emergency department for evaluation of dyspnea. Acute on chronic hypoxemic respiratory failure due to: Sepsis due to influenza A pneumonia with bacterial superinfection leading to: Acute exacerbation of COPD -will admit patient and initiate empiric IV antibiotics.? Sputum culture pending.? Resuscitated with IV crystalloids in the ER.? Lactic acid and blood cultures obtained -initiated systemic steroids.? Scheduled and p.rstanislav Greer. -currently on 4 L supplemental oxygen, at baseline home 3 L oxygen.? Monitor and wean as tolerated, maintain oxygen saturation greater than 88% -initiating Tamiflu Type A lactic acidosis -trended down with IV fluid resuscitation Coronary artery disease On beta-kelly, antiplatelet therapy and statin Chronic normocytic anemia -Hb above transfusion threshold DVT prophylaxis: Lovenox 40 mg daily Cardiac diet Full code reason for continued hospitalization:sob Quality Stroke Does the patient have a stroke diagnosis?: No VTE Prior VTE?: No VTE Risk Level:: Medical - moderate - high VTE Device Contraindication: Treatment Not Indicated VTE Drug Contraindication: N/A - Med Ordered
[2022-10-24] VITALS (9 sets, daily range): BP systolic 89–138; BP diastolic 52–83; PULSE 82–104; RESP 14–18; TEMP 36.1–36.8; O2SAT 96–100
[2022-10-24] MEDS: 0.9 % Sodium Chloride Flush 3 ML SYRINGE IVFLUSH ×3 (00:54→21:35)
[2022-10-24] MEDS: cefTRIAXone sodium 1 GM in 0.9 % Sodium Chloride 50 ML IV ×2 (00:55→21:35)
[2022-10-24] MEDS: Azithromycin 500 MG in 0.9 % Sodium Chloride 250 ML 125 MG IV (01:34)
[2022-10-24] MEDS: Enoxaparin Sodium 40 MG/0.4 ML SYRINGE SUBCUT (01:40)
[2022-10-24 08:16] LABS: Hematocrit 24.7 % (42.0-52.0); Hemoglobin 8.4 g/dl (14.0-18.0); Mean Corpuscular Hemoglobin 32.2 pg (27.0-33.0); Mean Corpuscular Volume 94.6 fL (80.0-98.0); Mean Platelet Volume 10.7 fL (9.4-12.4); Platelet Count 198 X10*3/uL (160-400); Red Blood Count 2.61 X10*6/uL (4.60-5.80); Red Cell Distribution Width 22.4 % (11.0-16.0); White Blood Count 6.9 X10*3/uL (4.8-10.8)
[2022-10-24 08:17] LABS: NRBC Pct Auto 1.2 /100WBC (0.0-0.2)
[2022-10-24] MEDS: Albuterol/Iprat 2.5/0.5MG 3 ML AMPUL.NEB INHALE ×4 (08:17→19:39)
[2022-10-24 08:36] LABS: Anion Gap 12 (12-20); Blood Urea Nitrogen 28 mg/dL (9-16); Calcium 7.8 mg/dL (8.4-10.2); Carbon Dioxide 26 mmol/L (22-29); Chloride 108 mmol/L (96-108); Creatinine Clr Calc Pharmacy 96.7; Estimated Glomerular Filt Rate > 60; Glucose Fasting 92 mg/dL (60-99); Potassium 4.5 mmol/L (3.3-5.1); Sodium 141 mmol/L (135-145)
[2022-10-24] MEDS: Metoprolol Succinate ER 25 MG TAB.ER.24H PO (09:34)
[2022-10-24] MEDS: Oseltamivir Phosphate 75 MG CAPSULE PO ×2 (09:35→21:35)
[2022-10-24] MEDS: methylPREDNISolone Sod Succ 40 MG/ML VIAL IVPUSH ×2 (09:35→21:35)
[2022-10-24] MEDS: Atorvastatin Calcium 40 MG TABLET PO (09:35)
[2022-10-24] MEDS: Aspirin Enteric Coated 81 MG TABLET.DR PO (09:35)
--- NOTE | 2022-10-24 10:38 | P.PNIM_ITS ---
Subjective Subjective Date of Service: 10/24/22 Interval History: cc: sob interval history:still sob Cardiovascular Cardiovascular: Reports no additional cardiovascular complaints Gastrointestinal Gastrointestinal: Reports no additional gastrointestinal complaints Physical Exam Vital Signs: Vital Signs: Last Vital Signs Temp 98.2 F 10/24/22 07:11 Pulse 98 10/24/22 08:20 Resp 17 10/24/22 08:20 BP 138/72 10/24/22 07:11 Pulse Ox 98 10/24/22 07:11 O2 Del Method 10/24/22 07:11 O2 Flow Rate 2 10/24/22 07:11 Oxygen Flow Rate 3 10/22/22 23:30 BMI result Body Mass Index 21.6 General: AO X 3, no acute distress Resp: wheezing bilateral, no accessory muscles used CVS: S1,S2,RRR GI: soft, non tender, non distended Neuro: motor grossly intact, alert Psych: appropriate affect, appropriate insight Objective Data Active Medications Acetaminophen (Acetaminophen 325 Mg Tablet) 650 mg PO Q6H PRN PRN Reason: Pain, Mild (Pain Scale 1-3) Last Admin: 10/23/22 08:16 Dose: 650 mg Documented By: MEMO Albuterol Sulfate (Albuterol Sulfate 90 Mcg 8 Gm Inhaler) 2 puff INHALE RQ4H P RN PRN Reason: sob Albuterol/Ipratropium (Albuterol/Iprat 2.5/0.5mg 3 Ml Ampul.Neb) 3 ml INHALE RQ4H WHILE AWAKE [facility] Last Admin: 10/24/22 08:17 Dose: 3 ml Documented By: MARISOL Albuterol/Ipratropium (Albuterol/Iprat 2.5/0.5mg 3 Ml Ampul.Neb) 3 ml INHALE RQ4H PRN PRN Reason: Wheezing Aspirin (Aspirin Enteric Coated 81 Mg Tablet.Dr) 81 mg PO DAILY [facility] Last Admin: 10/24/22 09:35 Dose: 81 mg Documented By: TORY Atorvastatin Calcium (Atorvastatin Calcium 40 Mg Tablet) 40 mg PO DAILY [facility] Last Admin: 10/24/22 09:35 Dose: 40 mg Documented By: TORY Benzonatate (Benzonatate 100 Mg Capsule) 200 mg PO TID PRN PRN Reason: Cough Enoxaparin Sodium (Enoxaparin Sodium 40 Mg/0.4 Ml Syringe) 40 mg SUBCUT Q24H [facility] Last Admin: 10/24/22 01:40 Dose: 40 mg Documented By: YEE Ceftriaxone Sodium 1 gm/ (Sodium Chloride) 50 mls @ 100 mls/hr IV Q24H [facility] Last Infusion: 10/24/22 01:33 Dose: 0 mls/hr Documented By: YEE Azithromycin 500 mg/ Sodium (Chloride) 250 mls @ 125 mls/hr IV Q24H [facility] Last Infusion: 10/24/22 04:03 Dose: 0 mls/hr Documented By: YEE Melatonin (Melatonin 3 Mg Tablet) 6 mg PO BEDTIME PRN PRN Reason: Insomnia Methylprednisolone Sodium Succinate (Methylprednisolone Sod Succ 40 Mg/Ml Vial) 40 mg IVPUSH BID [facility] Last Admin: 10/24/22 09:35 Dose: 40 mg Documented By: TORY Metoprolol Succinate (Metoprolol Succinate Er 25 Mg Tab.Er.24h) 25 mg PO DAILY [facility]; Protocol Last Admin: 10/24/22 09:34 Dose: 25 mg Documented By: TORY Ondansetron HCl (Ondansetron Hcl 4 Mg/2 Ml Vial) 4 mg IVPUSH Q8H PRN PRN Reason: Nausea and Vomiting Oseltamivir Phosphate (Oseltamivir Phosphate 75 Mg Capsule) 75 mg PO BID [facility] Last Admin: 10/24/22 09:35 Dose: 75 mg Documented By: TORY Pharmacy Consult (Consult Rx Perform Med Rec) 1 each MISCELLANE ONCE PRN PRN Reason: Consult order Sodium Chloride (0.9 % Sodium Chloride Flush 3 Ml Syringe) 3 ml IVFLUSH QSHIFT [facility] Last Admin: 10/24/22 09:35 Dose: 3 ml Documented By: TORY Labs CBC & Chem 7: 10/24/22 07:46 10/24/22 07:46 Labs: Laboratory Results - last 24 hr 10/24/22 10/24/22 07:46 07:46 MCV 94.6 MCH 32.2 MCHC 34.0 RDW 22.4 H Plt Count 198 MPV 10.7 Absolute Nucleated RBC 0.080 H Nucleated RBC % (auto) 1.2 H Smear Path Review SEE NOTE Anion Gap 12 Estim Creat Clear Calc 96.7 Estimated GFR > 60 Fasting Glucose 92 Calcium 7.8 L Microbiology Microbiology Results: Microbiology 10/22/22 23:45 Blood Culture - Preliminary Blood - Venous No growth after 24 hours. 10/22/22 23:28 Blood Culture - Preliminary Blood - Venous No growth after 24 hours. Assessment and Plan (1) Influenza A: Status: Acute Plan 77-year-old male with pertinent history of chronic hypoxemic respiratory failure due to COPD, 3 L baseline home oxygen, coronary artery disease who presented to the emergency department for evaluation of dyspnea. Acute on chronic hypoxemic respiratory failure due to: severe Sepsis due to influenza A pneumonia with possible bacterial superi nfection leading to: Acute exacerbation of COPD empiric IV antibiotics.? Sputum culture pending.? Resuscitated with IV crystalloids in the ER.? Lactic acid and blood cultures obtained -initiated systemic steroids.? Scheduled and p.r.n. DuElaine. -currently on 4 L supplemental oxygen, at baseline home 3 L oxygen.? Monitor and wean as tolerated, maintain oxygen saturation greater than 88% -initiating Tamiflu Coronary artery disease On beta-kelly, antiplatelet therapy and statin Chronic normocytic anemia -Hb above transfusion threshold DVT prophylaxis: Lovenox 40 mg daily Cardiac diet Full code reason for continued hospitalization:sob Quality Stroke Does the patient have a stroke diagnosis?: No VTE Prior VTE?: No VTE Risk Level:: Medical - moderate - high VTE Device Contraindication: Treatment Not Indicated VTE Drug Contraindication: N/A - Med Ordered
[2022-10-24] MEDS: Benzonatate 100 MG CAPSULE 200 MG PO (14:23)
[2022-10-24] MEDS: Acetaminophen 325 MG TABLET 650 MG PO (14:24)
[2022-10-25] VITALS (14 sets, daily range): BP systolic 100–116; BP diastolic 53–65; PULSE 72–92; RESP 16–20; TEMP 35.8–36.9; O2SAT 96–100
[2022-10-25] MEDS: Azithromycin 500 MG in 0.9 % Sodium Chloride 250 ML 125 MG IV (01:21)
[2022-10-25] MEDS: Enoxaparin Sodium 40 MG/0.4 ML SYRINGE SUBCUT (01:25)
[2022-10-25 06:19] LABS: Hematocrit 22.8 % (42.0-52.0); Hemoglobin 7.5 g/dl (14.0-18.0); Mean Corpuscular HGB Conc 32.9 g/dl (31.0-36.0); Mean Corpuscular Hemoglobin 31.6 pg (27.0-33.0); Mean Corpuscular Volume 96.2 fL (80.0-98.0); Mean Platelet Volume 10.4 fL (9.4-12.4); Platelet Count 168 X10*3/uL (160-400); Red Blood Count 2.37 X10*6/uL (4.60-5.80); Red Cell Distribution Width 22.8 % (11.0-16.0); White Blood Count 6.2 X10*3/uL (4.8-10.8)
[2022-10-25 06:20] LABS: NRBC Pct Auto 1.9 /100WBC (0.0-0.2)
[2022-10-25 06:25] LABS: Anion Gap 11 (12-20); Blood Urea Nitrogen 40 mg/dL (9-16); Carbon Dioxide 29 mmol/L (22-29); Chloride 107 mmol/L (96-108); Creatinine Clr Calc Pharmacy 85.5; Estimated Glomerular Filt Rate > 60; Glucose Fasting 121 mg/dL (60-99); Sodium 142 mmol/L (135-145)
[2022-10-25] MEDS: Albuterol/Iprat 2.5/0.5MG 3 ML AMPUL.NEB INHALE ×4 (08:01→19:20)
[2022-10-25 08:17] LABS: Iron 112 mcg/dL (45-160); Percent Iron Saturation 64 % (15-50); Total Iron Binding Capacity 176 mcg/dL (228-428); Unsaturated Iron Binding 64 ug/dL
[2022-10-25 09:10] LABS: Ferritin 2723 ng/mL (20-250)
[2022-10-25] MEDS: Aspirin Enteric Coated 81 MG TABLET.DR PO (10:11)
[2022-10-25] MEDS: Atorvastatin Calcium 40 MG TABLET PO (10:11)
[2022-10-25] MEDS: Oseltamivir Phosphate 75 MG CAPSULE PO ×2 (10:11→21:42)
[2022-10-25] MEDS: Metoprolol Succinate ER 25 MG TAB.ER.24H PO (10:11)
[2022-10-25] MEDS: 0.9 % Sodium Chloride Flush 3 ML SYRINGE IVFLUSH ×3 (10:22→21:42)
[2022-10-25] MEDS: methylPREDNISolone Sod Succ 40 MG/ML VIAL IVPUSH ×2 (10:22→21:42)
--- NOTE | 2022-10-25 10:39 | P.PNIM_ITS ---
Subjective Subjective Date of Service: 10/25/22 Interval History: cc: sob interval history:still sob Cardiovascular Cardiovascular: Reports no additional cardiovascular complaints Gastrointestinal Gastrointestinal: Reports no additional gastrointestinal complaints Physical Exam Vital Signs: Vital Signs: Last Vital Signs Temp 97.2 F 10/25/22 07:40 Pulse 72 10/25/22 08:01 Resp 18 10/25/22 08:01 BP 110/65 10/25/22 07:40 Pulse Ox 96 10/25/22 07:40 O2 Del Method 10/25/22 07:40 O2 Flow Rate 2 10/25/22 07:40 Oxygen Flow Rate 3 10/22/22 23:30 BMI result Body Mass Index 21.6 General: AO X 3, no acute distress Resp: wheezing bilateral, no accessory muscles used CVS: S1,S2,RRR GI: soft, non tender, non distended Neuro: motor grossly intact, alert Psych: appropriate affect, appropriate insight Objective Data Active Medications Acetaminophen (Acetaminophen 325 Mg Tablet) 650 mg PO Q6H PRN PRN Reason: Pain, Mild (Pain Scale 1-3) Last Admin: 10/24/22 14:24 Dose: 650 mg Documented By: TORY Albuterol Sulfate (Albuterol Sulfate 90 Mcg 8 Gm Inhaler) 2 puff INHALE RQ4H PRN PRN Reason: sob Albuterol/Ipratropium (Albuterol/Iprat 2.5/0.5mg 3 Ml Ampul.Neb) 3 ml INHALE RQ4H WHILE AWAKE [facility] Last Admin: 10/25/22 08:01 Dose: 3 ml Documented By: MARISOL Albuterol/Ipratropium (Albuterol/Iprat 2.5/0.5mg 3 Ml Ampul.Neb) 3 ml INHALE RQ4H PRN PRN Reason: Wheezing Aspirin (Aspirin Enteric Coated 81 Mg Tablet.) 81 mg PO DAILY [facility] Last Admin: 10/25/22 10:11 Dose: 81 mg Documented By: TRICIA Atorvastatin Calcium (Atorvastatin Calcium 40 Mg Tablet) 40 mg PO DAILY [facility] Last Admin: 10/25/22 10:11 Dose: 40 mg Documented By: TRICIA Benzonatate (Benzonatate 100 Mg Capsule) 200 mg PO TID PRN PRN Reason: Cough Last Admin: 10/24/22 14:23 Dose: 200 mg Documented By: TORY Enoxaparin Sodium (Enoxaparin Sodium 40 Mg/0.4 Ml Syringe) 40 mg SUBCUT Q24H [facility] Last Admin: 10/25/22 01:25 Dose: 40 mg Documented By: ARTURO Ceftriaxone Sodium 1 gm/ (Sodium Chloride) 50 mls @ 100 mls/hr IV Q24H [facility] Last Infusion: 10/24/22 22:19 Dose: 0 mls/hr Documented By: ARTURO Azithromycin 500 mg/ Sodium (Chloride) 250 mls @ 125 mls/hr IV Q24H [facility] Last Infusion: 10/25/22 03:31 Dose: 0 mls/hr Documented By: ARTURO Melatonin (Melatonin 3 Mg Tablet) 6 mg PO BEDTIME PRN PRN Reason: Insomnia Methylprednisolone Sodium Succinate (Methylprednisolone Sod Succ 40 Mg/Ml Vial) 40 mg IVPUSH BID [facility] Last Admin: 10/25/22 10:22 Dose: 40 mg Documented By: TRICIA Metoprolol Succinate (Metoprolol Succinate Er 25 Mg Tab.Er.24h) 25 mg PO DAILY [facility]; Protocol Last Admin: 10/25/22 10:11 Dose: 25 mg Documented By: TRICIA Ondansetron HCl (Ondansetron Hcl 4 Mg/2 Ml Vial) 4 mg IVPUSH Q8H PRN PRN Reason: Nausea and Vomiting Oseltamivir Phosphate (Oseltamivir Phosphate 75 Mg Capsule) 75 mg PO BID [facility] Last Admin: 10/25/22 10:11 Dose: 75 mg Documented By: TRICIA Pharmacy Consult (Consult Rx Perform Med Rec) 1 each MISCELLANE ONCE PRN PRN Reason: Consult order Sodium Chloride (0.9 % Sodium Chloride Flush 3 Ml Syringe) 3 ml IVFLUSH QSHIFT [facility] Last Admin: 10/25/22 10:22 Dose: 3 ml Documented By: TRICIA Labs CBC & Chem 7: 10/25/22 05:58 10/25/22 05:58 Labs: Laboratory Results - last 24 hr 10/25/22 10/25/22 10/25/22 05:58 05:58 08:21 MCV 96.2 MCH 31.6 MCHC 32.9 RDW 22.8 H Plt Count 168 MPV 10.4 Absolute Nucleated RBC 0.120 H Nucleated RBC % (auto) 1.9 H Anion Gap 11 L Estim Creat Clear Calc 85.5 Estimated GFR > 60 Fasting Glucose 121 H Calcium 8.0 L Iron 112 TIBC 176 L % Saturation 64 H Unsat Iron Binding 64 Ferritin 2723 H Blood Type O Positive Antibody Screen NEGATIVE Crossmatch See Detail Microbiology Microbiology Results: Microbiology 10/22/22 23:28 Blood Culture - Preliminary Blood - Venous Prelim: GPC Gram Stain only 10/22/22 23:45 Blood Culture - Preliminary Blood - Venous No growth after 48 hours. Assessment and Plan (1) Influenza A: Status: Acute Plan 77-year-old male with pertinent history of chronic hypoxemic respiratory failure due to COPD, 3 L baseline home oxygen, coronary artery disease who presented to the emergency department for evaluation of dyspnea. Acute on chronic hypoxemic respiratory failure due to: severe Sepsis due to influenza A pneumonia with possible bacterial superinfection leading to: Acute exacerbation of COPD empiric IV antibiotics.? Sputum culture pending.? Resuscitated with IV crystalloids in the ER.? Lactic acid and blood cultures obtained -initiated systemic steroids.? Scheduled and p.r.n. DuoNebs. -currently on 4 L supplemental oxygen, at baseline home 3 L oxygen.? Monitor and wean as tolerated, maintain oxygen saturation greater than 88% -initiating Tamiflu Coronary artery disease On beta-kelly, antiplatelet therapy and statin Chronic normocytic anemia inflammatory will transfuse 1 unit prbc monitor DVT prophylaxis: Lovenox 40 mg daily Cardiac diet Full code reason for continued hospitalization:sob Quality Stroke Does the patient have a stroke diagnosis?: No VTE Prior VTE?: No VTE Risk Level:: Medical - moderate - high VTE Device Contraindication: Treatment Not Indicated VTE Drug Contraindication: N/A - Med Ordered
--- NOTE | 2022-10-25 13:59 | MHC.CM.PN ---
per rounds pt not ready for dc plan remains home in 1 to 2 days
[2022-10-25] MEDS: Omeprazole 20 MG CAPSULE.DR PO (15:37)
[2022-10-25] MEDS: Benzonatate 100 MG CAPSULE 200 MG PO (21:42)
[2022-10-25] MEDS: cefTRIAXone sodium 1 GM in 0.9 % Sodium Chloride 50 ML IV (22:43)
[2022-10-26] VITALS (10 sets, daily range): BP systolic 101–134; BP diastolic 50–77; PULSE 71–97; RESP 12–19; TEMP 36.1–36.9; O2SAT 93–99
[2022-10-26] MEDS: Enoxaparin Sodium 40 MG/0.4 ML SYRINGE SUBCUT (01:47)
[2022-10-26] MEDS: Azithromycin 500 MG in 0.9 % Sodium Chloride 250 ML 125 MG IV (01:47)
[2022-10-26] MEDS: Albuterol/Iprat 2.5/0.5MG 3 ML AMPUL.NEB INHALE ×5 (04:41→20:03)
[2022-10-26] MEDS: Omeprazole 20 MG CAPSULE.DR PO (05:50)
[2022-10-26 06:25] LABS: Hematocrit 26.2 % (42.0-52.0); Hemoglobin 8.7 g/dl (14.0-18.0); Mean Corpuscular HGB Conc 33.2 g/dl (31.0-36.0); Mean Corpuscular Hemoglobin 31.2 pg (27.0-33.0); Mean Corpuscular Volume 93.9 fL (80.0-98.0); Mean Platelet Volume 10.4 fL (9.4-12.4); Platelet Count 151 X10*3/uL (160-400); Red Blood Count 2.79 X10*6/uL (4.60-5.80); Red Cell Distribution Width 20.6 % (11.0-16.0); White Blood Count 5.3 X10*3/uL (4.8-10.8)
[2022-10-26 06:26] LABS: NRBC Pct Auto 1.3 /100WBC (0.0-0.2)
[2022-10-26 06:41] LABS: Anion Gap 13 (12-20); Blood Urea Nitrogen 31 mg/dL (9-16); Calcium 7.8 mg/dL (8.4-10.2); Carbon Dioxide 26 mmol/L (22-29); Chloride 106 mmol/L (96-108); Creatinine Clr Calc Pharmacy 95.1; Estimated Glomerular Filt Rate > 60; Glucose Fasting 135 mg/dL (60-99); Potassium 4.6 mmol/L (3.3-5.1); Sodium 140 mmol/L (135-145)
[2022-10-26] MEDS: 0.9 % Sodium Chloride Flush 3 ML SYRINGE IVFLUSH ×3 (10:06→21:03)
[2022-10-26] MEDS: Atorvastatin Calcium 40 MG TABLET PO (10:06)
[2022-10-26] MEDS: Metoprolol Succinate ER 25 MG TAB.ER.24H PO (10:06)
[2022-10-26] MEDS: methylPREDNISolone Sod Succ 40 MG/ML VIAL IVPUSH ×2 (10:06→21:03)
[2022-10-26] MEDS: Aspirin Enteric Coated 81 MG TABLET.DR PO (10:06)
[2022-10-26] MEDS: Oseltamivir Phosphate 75 MG CAPSULE PO ×2 (10:06→21:02)
[2022-10-26] MEDS: Benzonatate 100 MG CAPSULE 200 MG PO (10:15)
--- NOTE | 2022-10-26 10:16 | P.PNIM_ITS ---
Subjective Subjective Date of Service: 10/26/22 Interval History: cc: sob interval history:still sob Cardiovascular Cardiovascular: Reports no additional cardiovascular complaints Gastrointestinal Gastrointestinal: Reports no additional gastrointestinal complaints Physical Exam Vital Signs: Vital Signs: Last Vital Signs Temp 97.9 F 10/26/22 08:00 Pulse 83 10/26/22 08:00 Resp 12 10/26/22 08:00 BP 101/50 L 10/26/22 08:00 Pulse Ox 99 10/26/22 08:00 O2 Del Method 10/26/22 08:00 O2 Flow Rate 2 10/26/22 08:00 Oxygen Flow Rate 3 10/22/22 23:30 BMI result Body Mass Index 21.6 General: AO X 3, no acute distress Resp: wheezing bilateral, no accessory muscles used CVS: S1,S2,RRR GI: soft, non tender, non distended Neuro: motor grossly intact, alert Psych: appropriate affect, appropriate insight Objective Data Active Medications Acetaminophen (Acetaminophen 325 Mg Tablet) 650 mg PO Q6H PRN PRN Reason: Pain, Mild (Pain Scale 1-3) Last Admin: 10/24/22 14:24 Dose: 650 mg Documented By: TORY Albuterol Sulfate (Albuterol Sulfate 90 Mcg 8 Gm Inhaler) 2 puff INHALE RQ4H PRN PRN Reason: sob Albuterol/Ipratropium (Albuterol/Iprat 2.5/0.5mg 3 Ml Ampul.Neb) 3 ml INHALE RQ4H WHILE AWAKE [facility] Last Admin: 10/26/22 07:38 Dose: 3 ml Documented By: JIMMY Albuterol/Ipratropium (Albuterol/Iprat 2.5/0.5mg 3 Ml Ampul.Neb) 3 ml INHALE RQ4H PRN PRN Reason: Wheezing Last Admin: 10/26/22 04:41 Dose: 3 ml Documented By: JESSE Aspirin (Aspirin Enteric Coated 81 Mg Tablet.) 81 mg PO DAILY [facility] Last Admin: 10/26/22 10:06 Dose: 81 mg Documented By: TRICIA Atorvastatin Calcium (Atorvastatin Calcium 40 Mg Tablet) 40 mg PO DAILY [facility] Last Admin: 10/26/22 10:06 Dose: 40 mg Documented By: TRICIA Benzonatate (Benzonatate 100 Mg Capsule) 200 mg PO TID PRN PRN Reason: Cough Last Admin: 10/26/22 10:15 Dose: 200 mg Documented By: TRICIA Enoxaparin Sodium (Enoxaparin Sodium 40 Mg/0.4 Ml Syringe) 40 mg SUBCUT Q24H [facility] Last Admin: 10/26/22 01:47 Dose: 40 mg Documented By: ABDIFATAH Ceftriaxone Sodium 1 gm/ (Sodium Chloride) 50 mls @ 100 mls/hr IV Q24H [facility] Last Infusion: 10/25/22 23:45 Dose: 0 mls/hr Documented By: ABDIFATAH Azithromycin 500 mg/ Sodium (Chloride) 250 mls @ 125 mls/hr IV Q24H [facility] Last Infusion: 10/26/22 04:12 Dose: 0 mls/hr Documented By: ABDIFATAH Melatonin (Melatonin 3 Mg Tablet) 6 mg PO BEDTIME PRN PRN Reason: Insomnia Methylprednisolone Sodium Succinate (Methylprednisolone Sod Succ 40 Mg/Ml Vial) 40 mg IVPUSH BID [facility] Last Admin: 10/26/22 10:06 Dose: 40 mg Documented By: TRICIA Metoprolol Succinate (Metoprolol Succinate Er 25 Mg Tab.Er.24h) 25 mg PO DAILY [facility]; Protocol Last Admin: 10/26/22 10:06 Dose: 25 mg Documented By: TRICIA Omeprazole (Omeprazole 20 Mg Capsule.Dr) 20 mg PO DAILY@0630 [facility] Last Admin: 10/26/22 05:50 Dose: 20 mg Documented By: ABDIFATAH Ondansetron HCl (Ondansetron Hcl 4 Mg/2 Ml Vial) 4 mg IVPUSH Q8H PRN PRN Reason: Nausea and Vomiting Oseltamivir Phosphate (Oseltamivir Phosphate 75 Mg Capsule) 75 mg PO BID [facility] Last Admin: 10/26/22 10:06 Dose: 75 mg Documented By: TRICIA Pharmacy Consult (Consult Rx Perform Med Rec) 1 each MISCELLANE ONCE PRN PRN Reason: Consult order Sodium Chloride (0.9 % Sodium Chloride Flush 3 Ml Syringe) 3 ml IVFLUSH QSHIFT [facility] Last Admin: 10/26/22 10:06 Dose: 3 ml Documented By: TRICIA Labs CBC & Chem 7: 10/26/22 06:05 10/26/22 06:05 Labs: Laboratory Results - last 24 hr 10/25/22 10/26/22 10/26/22 08:21 06:05 06:05 MCV 93.9 MCH 31.2 MCHC 33.2 RDW 20.6 H Plt Count 151 L MPV 10.4 Absolute Nucleated RBC 0.070 H Nucleated RBC % (auto) 1.3 H Anion Gap 13 Estim Creat Clear Calc 95.1 Estimated GFR > 60 Fasting Glucose 135 H Calcium 7.8 L Blood Type O Positive Antibody Screen NEGATIVE Crossmatch See Detail Microbiology Microbiology Results: Microbiology 10/22/22 23:28 Blood Culture - Final Blood - Venous Coag negative Staphylococcus Assessment and Plan (1) Influenza A: Status: Acute Plan 77-year-old male with pertinent history of chronic hypoxemic respiratory failure due to COPD, 3 L baseline home oxygen, coronary artery disease who presented to the emergency department for evaluation of dyspnea. Acute on chronic hypoxemic respiratory failure due to: severe Sepsis due to influenza A pneumonia with possible bacterial superinfection leading to: Acute exacerbation of COPD empiric IV antibiotics -initiated systemic steroids.? Scheduled and p.r.n. DuoNebs mucinex. Tamiflu Coronary artery disease On beta-kelly, antiplatelet therapy and statin Chronic normocytic anemia inflammatory s/p 1 unit prbc, hgb improved appropriately monitor DVT prophylaxis: Lovenox 40 mg daily Cardiac diet Full code reason for continued hospitalization:sob, weakness Quality Stroke Does the patient have a stroke diagnosis?: No VTE Prior VTE?: No VTE Risk Level:: Medical - moderate - high VTE Device Contraindication: Treatment Not Indicated VTE Drug Contraindication: N/A - Med Ordered
[2022-10-26] MEDS: guaiFENesin LA 600 MG TAB.ER.12H PO ×2 (13:38→21:02)
[2022-10-26] MEDS: cefTRIAXone sodium 1 GM in 0.9 % Sodium Chloride 50 ML IV (21:08)
[2022-10-27] MEDS: Azithromycin 500 MG in 0.9 % Sodium Chloride 250 ML 125 MG IV (02:06)
[2022-10-27] MEDS: Enoxaparin Sodium 40 MG/0.4 ML SYRINGE SUBCUT (02:09)
[2022-10-27 04:00] VITALS: BP 100/53; PULSE 69; RESP 18; TEMP 36.6; O2SAT 96
[2022-10-27] MEDS: Omeprazole 20 MG CAPSULE.DR PO (04:43)
[2022-10-27 06:51] LABS: Hematocrit 26.4 % (42.0-52.0); Hemoglobin 8.5 g/dl (14.0-18.0); Mean Corpuscular HGB Conc 32.2 g/dl (31.0-36.0); Mean Corpuscular Hemoglobin 32.1 pg (27.0-33.0); Mean Corpuscular Volume 99.6 fL (80.0-98.0); Mean Platelet Volume 11.5 fL (9.4-12.4); NRBC Pct Auto 0.6 /100WBC (0.0-0.2); Platelet Count 147 X10*3/uL (160-400); Red Blood Count 2.65 X10*6/uL (4.60-5.80); Red Cell Distribution Width 21.2 % (11.0-16.0); White Blood Count 6.6 X10*3/uL (4.8-10.8)
[2022-10-27 07:27] LABS: Anion Gap 11 (12-20); Blood Urea Nitrogen 28 mg/dL (9-16); Calcium 7.7 mg/dL (8.4-10.2); Carbon Dioxide 25 mmol/L (22-29); Chloride 106 mmol/L (96-108); Creatinine Clr Calc Pharmacy 89.4; Estimated Glomerular Filt Rate > 60; Glucose Fasting 126 mg/dL (60-99); Sodium 138 mmol/L (135-145)
[2022-10-27 07:40] VITALS: PULSE 82; RESP 16; O2SAT 98
[2022-10-27] MEDS: Albuterol/Iprat 2.5/0.5MG 3 ML AMPUL.NEB INHALE (07:40)
[2022-10-27 07:47] VITALS: BP 110/54; PULSE 80; RESP 20; TEMP 36.4; O2SAT 97
[2022-10-27] MEDS: 0.9 % Sodium Chloride Flush 3 ML SYRINGE IVFLUSH (09:44)
[2022-10-27] MEDS: Metoprolol Succinate ER 25 MG TAB.ER.24H PO (09:44)
[2022-10-27] MEDS: Oseltamivir Phosphate 75 MG CAPSULE PO (09:44)
[2022-10-27] MEDS: methylPREDNISolone Sod Succ 40 MG/ML VIAL IVPUSH (09:44)
[2022-10-27] MEDS: Atorvastatin Calcium 40 MG TABLET PO (09:44)
[2022-10-27] MEDS: Aspirin Enteric Coated 81 MG TABLET.DR PO (09:44)
[2022-10-27] MEDS: guaiFENesin LA 600 MG TAB.ER.12H PO (09:45)
--- NOTE | 2022-10-27 11:17 | PM.DS ---
DS: Providers Provider Date of Service: 10/27/22 Date of admission: 10/23/22 02:02 Primary care physician: Unknown Physician DS: Diagnosis Discharge Diagnosis (1) Influenza A: Status: Acute DS: Summary Hospital Course Hospital Course: from initial hpi: Chief Complaint: Dyspnea This is a 77-year-old male with pertinent history of chronic hypoxemic respiratory failure due to COPD, 3 L baseline home oxygen, coronary artery disease who presents to the emergency department for evaluation of dyspnea.? Patient states his son and grandson got tested positive for flu about 3 days ago.? Patient initially had runny nose and watering of eyes.? It progressed and he started having productive cough with yellowish sputum production.? Also had associated dyspnea, worse with exertion and wheezing.? Patient normally uses 3 L baseline oxygen at home but noticed worsening dyspnea even on supplemental oxygen.? Patient denies chest discomfort, palpitations, abdominal pain, changes in urinary or bowel habits.? No nausea vomiting.? Does not know if he had a fever. In the emergency department, patient requiring 4 L supplemental oxygen to maintain sats above 88%.? Imaging with left-sided consolidation hospital course: Patient was admitted for acute on chronic hypoxemic respiratory failure due to severe sepsis due to influenza a and superimposed bacterial infection leading to acute decompensation of COPD. Patient was treated with IV antibiotics, systemic steroids, bronchodilators, Mucinex, Tamiflu. Patient's shortness of breath improved, is now back to his baseline oxygen and able to ambulate with minimal shortness of breath. He will be discharged on 5 more days of prednisone and cefuroxime. Risk coronary disease he was continued on antiplatelet and statin therapy. For his chronic normocytic anemia due to inflammation he required 1 unit of PRBC and hemoglobin improved appropriately. Patient is feeling better and will be discharged home. Time Spent with Patient Time attestation: Total time spent providing and/or coordinating discharge services: Discharge coordination time: Greater than 30 minutes Quality: Safe Use of Opioids Does Pt have an Active Cancer Diagnosis on the Problem List?: No Quality: Stroke Does the patient have a stroke diagnosis?: No Physical Exam Vital Signs: Vital Signs: Last Vital Signs Temp 97.5 F 10/27/22 07:47 Pulse 80 10/27/22 07:47 Resp 20 10/27/22 07:47 BP 110/54 L 10/27/22 07:47 Pulse Ox 97 10/27/22 07:47 O2 Del Method 10/27/22 07:47 O2 Flow Rate 2 10/27/22 07:47 Oxygen Flow Rate 3 10/22/22 23:30 BMI result Body Mass Index 21.6 General: AO X 3, no acute distress Resp: cta bilateral, no accessory muscles used CVS: S1,S2,RRR GI: soft, non tender, non distended Neuro: motor grossly intact, alert Psych: appropriate affect, appropriate insight DS: Data Data Completed and Pending Labs on day of discharge: Laboratory Results - last 24 hr 10/27/22 10/27/22 06:14 06:14 WBC 6.6 RBC 2.65 L Hgb 8.5 L Hct 26.4 L MCV 99.6 H D MCH 32.1 MCHC 32.2 RDW 21.2 H Plt Count 147 L MPV 11.5 Absolute Nucleated RBC 0.040 H Nucleated RBC % (auto) 0.6 H Sodium 138 Potassium 4.0 Chloride 106 Carbon Dioxide 25 Anion Gap 11 L BUN 28 H Creatinine 0.66 Estim Creat Clear Calc 89.4 Estimated GFR > 60 Fasting Glucose 126 H Calcium 7.7 L Preliminary micro results at discharge 10/22/22 23:45 Blood Culture - Preliminary Blood - Venous No growth after 48 hours. Discharge Plan Discharge Anticipated Discharge Date/Time: 10/27/22 11:09 Patient Disposition: Home Health Service Discharge Diagnosis: flu, copd Referrals: Physician,Unknown J [Primary Care Provider] - 1 Week Discharge Medications: New omeprazole 20 mg Capsule,Delayed Release(Dr/Ec) 20 mg PO DAILY@0630 Qty: 30 0RF guaifenesin [Mucinex] 600 mg Tablet Extended Release 12hr 600 mg PO BID Qty: 20 0RF cefuroxime axetil 500 mg tablet 500 mg PO BID Qty: 10 0RF prednisone 20 mg tablet 40 mg PO DAILY Qty: 10 0RF Continued metoprolol succinate 25 mg tablet extended release 24 hr 25 mg PO DAILY 90 Days Qty: 90 3RF atorvastatin 40 mg tablet 40 mg PO DAILY 90 Days Qty: 90 3RF Dulera 200-5 mcg/actuation HFA aerosol inhaler 2 puff inhalation Q12H 30 Days Qty: 13 3RF ipratropium-albuterol 0.5 mg-3 mg(2.5 mg base)/3 mL solution for nebulization 3 ml inhalation QID PRN (Reason: Wheezing) Spiriva with HandiHaler 18 mcg capsule, w/inhalation device 1 cap inhalation DAILY Rx Instructions: puncture 1 cap using device; one dose = 2 inhalations albuterol sulfate [ProAir HFA] 90 mcg/actuation HFA aerosol inhaler 2 puff inhalation Q6H PRN (Reason: Wheezing) aspirin 81 mg tablet,delayed release (DR/EC) 81 mg PO DAILY Discharge Orders: Discharge Order (Routine); Ordered 10/27/22 Ordered By: Noel Ferguson Diet: Advance to usual diet Activity on Discharge: As tolerated Stand Alone Forms: Patient Portal Discharge page Care Plan Goals: recovery Health Concerns: flu, copd, pna Plan of Treatment: meds as prescribed Assessment: see above
[2022-10-27 11:26] VITALS: BP 120/56; PULSE 76; RESP 20; TEMP 36.8; O2SAT 100
--- NOTE | 2022-10-27 12:15 | MHC.CM.PN ---
pt dcd home with antonette chavis
--- NOTE | 2022-10-27 13:48 | W.MHC.F2F ---
Service Date Service Date: 10/27/22 Encounter Date of encounter: 10/27/22 Reasons for Services Signs and symptoms assessed: weak Reason for fdc: medication management, medication treatment and teach disease management Homebound: Leaving the home is medically contraindicated at this time without the asist of a device and/or another person due th the listed conditions above and below. Reason homebound: unsteady gait / fall risk Certification: Based on the above findings, I certify that this patient is confined to the home and needs intermittent fdc care, physical therapy and/or speech therapy, or continues to need occupational therapy. The patient is under my care, and I have initiated the establishment of the plan of care. The patient will be followed by a physician who will periodically review the plan of care.
== END 2022-10-27 14:44 | disposition home health service (06) | DRG 871 ==
LOC: HO.ED 10-23 01:18 → HO.EDOVER 10-23 02:28 → HO.IMC 10-23 15:50
PROVIDERS: Admitting Provider Student in an Organized Health Care Education/Training Program; Emergency Provider Internal Medicine; PCP Internal Medicine; Visit Provider Internal Medicine
DX: A41.9 Sepsis, unspecified organism (principal); J10.01 Influenza due to other identified influenza virus with the same other identified influenza virus pneumonia; J15.9 Unspecified bacterial pneumonia; J96.21 Acute and chronic respiratory failure with hypoxia; J44.0 Chronic obstructive pulmonary disease with (acute) lower respiratory infection; J44.1 Chronic obstructive pulmonary disease with (acute) exacerbation; R65.20 Severe sepsis without septic shock; I25.10 Atherosclerotic heart disease of native coronary artery without angina pectoris; D64.9 Anemia, unspecified; Z20.822 Contact with and (suspected) exposure to COVID-19; Z99.81 Dependence on supplemental oxygen; Z86.16 Personal history of COVID-19; Z87.891 Personal history of nicotine dependence; Z79.82 Long term (current) use of aspirin; Z79.899 Other long term (current) drug therapy
CPT/HCPCS: 0241U; 36415; 71045; 80048; 80053; 82728; 82803; 83540; 83605; 83880; 84484; 85025; 85027; 85610; 86850; 86900; 86901; 86923; 87040; 87147; 87205; 93005; 94640; 99285; J0456; J0696; J1650; J2920; P9016

== ENCOUNTER → 2022-10-31 15:12 | Outpatient (BNVA) | payer OTHER, SELFPAY | PROVIDERS: PCP Internal Medicine; Visit Provider Internal Medicine | DX: J44.9 Chronic obstructive pulmonary disease, unspecified (principal); J96.11 Chronic respiratory failure with hypoxia; J10.1 Influenza due to other identified influenza virus with other respiratory manifestations; R06.00 Dyspnea, unspecified; R60.0 Localized edema; Z79.899 Other long term (current) drug therapy; Z99.81 Dependence on supplemental oxygen | CPT/HCPCS: 99212 ==

== ENCOUNTER → 2022-12-05 10:16 | Outpatient (BNVA) | payer OTHER, SELFPAY | PROVIDERS: PCP Internal Medicine; Visit Provider Internal Medicine | DX: J96.11 Chronic respiratory failure with hypoxia (principal); J10.1 Influenza due to other identified influenza virus with other respiratory manifestations; I25.10 Atherosclerotic heart disease of native coronary artery without angina pectoris; Z87.891 Personal history of nicotine dependence; Z98.890 Other specified postprocedural states | CPT/HCPCS: 99212 ==

== ENCOUNTER 2023-01-02 16:23 | Inpatient (IN) | payer OTHER, SELFPAY ==
[2023-01-02] VITALS (56 sets, daily range): BP systolic 59–110; BP diastolic 24–71; PULSE 88–107; RESP 16–28; TEMP 36.2–37.3; O2SAT 97–100; BMI 24.2
--- NOTE | ~2023-01-02 | XR_ITS ---
EXAMINATION: XR CHEST CLINICAL INFORMATION: Hypoxia COMPARISON: 01/02/2023 TECHNIQUE: Frontal view of the chest was obtained. FINDINGS: Right internal jugular central venous catheter terminates over the mid SVC. Cardiac leads overlie the chest. The lungs are well expanded. Mild bronchial wall thickening. Hazy opacity of the right midlung. No pleural effusion or pneumothorax. The cardiomediastinal silhouette is within normal limits of size, with a calcified aorta. XR/XR chest 1V IMPRESSION: Bronchial wall thickening can be seen with a small airways process such as asthma or atypical/viral infection. Hazy opacity of the right midlung may represent superimposed atelectasis or pneumonia.
--- NOTE | ~2023-01-02 | XR_ITS ---
EXAMINATION: XR CHEST CLINICAL INFORMATION: Status post intubation. COMPARISON: 01/03/2023 chest radiograph. TECHNIQUE: Frontal view of the chest was obtained. FINDINGS: Support devices: Endotracheal tube with tip positioned approximately 4 cm proximal to walt. Enteric tube with tip not included on the study but seen below the left hemidiaphragm. Right internal jugular catheter with tip terminating in the superior vena cava. Mild increased pulmonary vascular markings are seen with patchy opacities greatest at the right lung base. The heart and mediastinal structures are unremarkable. XR/XR chest 1V IMPRESSION: 1. Endotracheal tube with tip terminating approximately 4 cm proximal to the walt. 2. Increased pulmonary vascular markings and patchy infiltrates suggesting a cardiogenic etiology. Infectious/inflammatory infiltrates cannot be excluded.
--- NOTE | ~2023-01-02 | US_ITS ---
EXAMINATION: US ABDOMEN LIMITED CLINICAL INFORMATION: Positive Mata's sign and elevated LFTs. COMPARISON: CT chest abdomen pelvis 01/02/2023 TECHNIQUE: Real-time imaging of the right upper quadrant abdominal viscera. FINDINGS: PANCREAS: Obscured by bowel gas and could not be seen. LIVER: The liver is normal in size. The liver contour is normal. Parenchymal echogenicity is normal. No focal hepatic lesion. There is mild intrahepatic biliary ductal dilatation GALLBLADDER: The gallbladder is now distended with a thickened wall with some fluid in the wall. Gallstones and sludge are present in the gallbladder. Mata's sign is positive COMMON BILE DUCT: Normal in caliber measuring 0.6 cm in diameter. RIGHT KIDNEY: No hydronephrosis. Renal cysts are present better demonstrated on CT scan yesterday. There is a 6 x 9 x 5 mm renal genic focus present at the upper pole of uncertain significance as no calculi this size were seen at that time. There was a small area of calcification seen in a upper pole cyst as well as a similar sized hyperattenuating area which could be milk of calcium and a small cyst.. No worrisome solid focal parenchymal lesions. The kidney measures 10.3 cm in maximum dimension. FREE FLUID: None. US/US abdomen limited IMPRESSION: Acute cholecystitis. This critical result was discussed with Dr. Thompson at 9:00 AM on the day the exam and it was ascertained that the content and urgency of the report was understood at the time of direct communication.
--- NOTE | ~2023-01-02 | CT_ITS ---
EXAMINATION: CT ABDOMEN AND PELVIS WITHOUT CONTRAST CLINICAL INFORMATION: Patient with abdominal pain with study being performed for cholecystostomy tube placement. COMPARISON: Ultrasound of same day and CT scan of 01/02/2023. TECHNIQUE: Multidetector volumetric imaging was performed from the superior aspect of the liver through the pubic symphysis. Sagittal and coronal reformatted images were obtained on the technologist's workstation. This CT examination was performed using dose optimization techniques as appropriate, variously including the following: *Automated exposure control *Adjustment of mA and/or kV according to patient size (this includes techniques or standardized protocols for targeted exams where dose is matched to indication/reason for exam; i.e. extremities or head) *Use of iterative reconstruction technique DLP: 391 mGy-cm The examination demonstrated that the gallbladder is smaller in size than previously with only a small amount of fluid seen about it which is similar to previous CT scan. No pericholecystic abscess collection is seen and since ultrasound study earlier today seems as if the gallbladder has decompressed and HIDA scan would be of help in further evaluation of biliary system patency. Cholecystostomy tube placement was aborted at this time. Abdominal and pelvic CT then performed at the request of referring provider. FINDINGS: LUNG BASES: Since previous CT scan the patient has developed small bilateral pleural effusions with basilar airspace disease. There are severe changes of emphysema at the lung bases. Heart normal size. No pericardial effusion. There is a small hiatal hernia with enteric catheter seen traversing to the stomach. LIVER, GALLBLADDER, AND BILIARY TREE: The liver is normal in size, shape, and attenuation. No focal hepatic lesion or biliary ductal dilatation is present. There is some haziness within the fat in the region of the ck hepatis similar to study of 01/02/2023 with the gallbladder appearing larger at that time measuring approximately 3.1 x 2.5 cm in size. The gallbladder was much larger on ultrasound performed earlier today and findings are suggestive of patency of the cystic duct. HIDA scan would be of help in further evaluation of patency of the cystic and common bile ducts. Cholelithiasis is present as well as the appearance of sludge. The gallbladder wall does appear thickened. There is a small amount of pericholecystic fluid superiorly. There is a region of diminished density within the gallbladder which may be related to cholesterolosis calculus versus locule of gas. There is no evidence of gallbladder wall rupture with no surrounding abscess being identified. PANCREAS: Unremarkable. No mass or peripancreatic fluid collection identified. SPLEEN: Unremarkable. ADRENAL GLANDS: Unremarkable. KIDNEYS AND URETERS: There is no evidence of hydronephrosis or hydroureter. There are bilateral renal cysts present with a few hyperdense cysts also present. There is some perinephric fat stranding bilaterally. BLADDER: Hunter catheter in place. Bladder decompressed. GASTROINTESTINAL TRACT: No dilated loops of large or small bowel are evident. No free intra-abdominal gas is seen. No significant free fluid is noted. There is a small amount of fluid about the superior gallbladder adjacent to the liver. Small hiatal hernia present. The stomach is distended. No pneumatosis intestinalis. No definite small bowel wall thickening is appreciated. No definite colonic wall thickening is seen with some difficulty in evaluating the splenic flexure and proximal descending colon due to lack of IV contrast and oral contrast and with bowel not being distended. I cannot rule out some bowel wall thickening involving the ascending colon. The appendix appears unremarkable. No significant pericolonic inflammatory changes appreciated. ABDOMINAL WALL: No significant hernia is appreciated. There are small bilateral fat-containing inguinal hernias present. LYMPH NODES: No lymphadenopathy is appreciated. VASCULAR: There is moderate aortoiliac calcified plaque present. Nonocclusive calcified plaque is seen at the origin of the celiac and superior mesenteric arteries. No significant plaque at the origin of the inferior mesenteric artery is appreciated. There is question of hemodynamically significant proximal left renal artery stenosis from calcified plaque. PELVIC VISCERA: Unremarkable. OSSEOUS STRUCTURES: No suspicious destructive bony lesions identified. CT/CT abdomen pelvis wo IV con IMPRESSION: Aborted placement of cholecystostomy tube due to small size of the gallbladder with the appearance of being decompressed. HIDA scan recommended for evaluation of patency of the cystic and common bile ducts. Development of bilateral pleural effusions and bibasilar atelectasis. Cholelithiasis with a small amount of free fluid about the superior aspect of the gallbladder adjacent to the liver. No developing abscess is appreciated. Numerous bilateral renal cysts some of which are complex in nature and for which follow-up ultrasound would be of help in further evaluation of possibility of solid components being present in 6-12 months if clinically indicated. Moderate atherosclerotic disease of the aortoiliac system. Fleischner guidelines were followed.
--- NOTE | ~2023-01-02 | CT_ITS ---
EXAMINATION: CT HEAD WITHOUT CONTRAST CLINICAL INFORMATION: Altered mental status. COMPARISON: No similar priors. TECHNIQUE: Contiguous axial imaging was performed from the skull base to vertex without intravenous administration of contrast. This CT examination was performed using dose optimization techniques as appropriate, variously including the following: *Automated exposure control *Adjustment of mA and/or kV according to patient size (this includes techniques or standardized protocols for targeted exams where dose is matched to indication/reason for exam; i.e. extremities or head) *Use of iterative reconstruction technique DLP: 694 mGy-cm FINDINGS: There is no evidence of acute intracranial hemorrhage or edematous territorial infarction. A few foci of hypoattenuation in the periventricular and deep white matter are consistent with mild microangiopathy. Parker-white matter differentiation is preserved. Proportional prominence of the ventricles and sulcal spaces. No evidence for obstructive hydrocephalus. No abnormal mass effect or midline shift. No extra-axial fluid collections. No acute soft tissue or osseous abnormalities. The mastoid air cells and paranasal sinuses are clear. Bilateral lens extraction. CT/CT head/brain wo IV con IMPRESSION: No evidence of acute intracranial hemorrhage or edematous territorial infarction.
--- NOTE | ~2023-01-02 | XR_ITS ---
EXAMINATION: XR CHEST CLINICAL INFORMATION: Central line placement. COMPARISON: Chest x-ray 10/22/2022 TECHNIQUE: Frontal portable view of the chest was obtained. 6:16 PM FINDINGS: Tubes and lines: 1. Right IJ catheter tip in superior vena cava approximately 3 cm proximal to the caval atrial junction. There is no pneumothorax. The heart size is normal. The cardiac and mediastinal contours are normal. There are vascular calcifications of aorta. Chronic coarse increased lung markings similar to prior. No pulmonary vascular congestion. No focal consolidation, or pleural effusion. XR/XR chest 1V IMPRESSION: Right IJ catheter tip in superior vena cava approximately 3 cm proximal to the caval atrial junction. There is no pneumothorax.
--- NOTE | ~2023-01-02 | CT_ITS ---
EXAMINATION: CT CHEST, ABDOMEN AND PELVIS WITHOUT CONTRAST CLINICAL INFORMATION: Sepsis COMPARISON: Chest radiograph earlier today TECHNIQUE: Multidetector volumetric imaging was performed from the thoracic inlet through the pubic symphysis without IV contrast. Sagittal and coronal reformatted images were obtained on the technologist's workstation. This CT examination was performed using dose optimization techniques as appropriate, variously including the following: *Automated exposure control *Adjustment of mA and/or kV according to patient size (this includes techniques or standardized protocols for targeted exams where dose is matched to indication/reason for exam; i.e. extremities or head) *Use of iterative reconstruction technique DLP: 297 mGy-cm FINDINGS: CHEST: Lung: Severe emphysematous changes are present throughout the lungs. No suspicious lung masses or consolidations are seen. Mediastinum: Thyroid appears normal. Atherosclerotic changes are present in the aorta and great vessels without aneurysm. Extensive three-vessel coronary disease is present. Heart size is normal. No mediastinal or hilar lymphadenopathy. A right IJ catheter has its tip in the distal SVC. Pericardium/Pleura: No significant effusion. No pleural mass or thickening. Chest Wall/Axilla: Unremarkable ABDOMEN/PELVIS: Peritoneal Space: No significant free air or free fluid identified. Liver, Gallbladder, Biliary Tree: The liver is normal in size, shape, and attenuation. No focal hepatic lesion or biliary ductal dilatation is present. The gallbladder contains calcified and noncalcified gallstones without obvious pericholecystic inflammatory changes. Pancreas: Unremarkable Spleen: Spleen is tiny Adrenal Glands: Unremarkable Kidneys and Ureters: The kidneys are normal in size, shape, and attenuation. Bilateral Bosniak class I and class II renal cysts are present. Some subtle hyperdensity is present in the renal medullary pyramids which could be related to nephrocalcinosis. A single tiny millimeter sized punctate calcifications seen near the upper pole kidney (23:19) No gross nephrolithiasis is present. No hydronephrosis or hydroureter seen. There is bilateral nonspecific perinephric stranding. Bladder: Hunter catheter is present in the bladder which is empty. Gastrointestinal Tract: A small hiatal hernia is present with fluid in the esophagus. The small and large bowel are unremarkable. The appendix is unremarkable. Abdominal Wall: Small bilateral inguinal hernias containing only fat. Lymph Nodes: No retroperitoneal lymphadenopathy. Vascular: Marked calcific atherosclerotic changes present in the aorta and iliofemoral vessels with probable areas of stenosis.. The IVC appears unremarkable. PELVIC VISCERA: Unremarkable OSSEUS STRUCTURES: Mild degenerative changes are noted in the spine. No bony destructive lesions are seen. CT/CT abdomen pelvis wo IV con IMPRESSION: 1. A cause for the patient's sepsis has not been found. 2. Incidental note made of severe emphysema, cholelithiasis, bilateral Bosniak class I and class II renal cysts which need no further imaging or follow-up, possible nephrocalcinosis, small hiatal hernia and extensive atherosclerotic changes. Fleischner guidelines were followed.
--- NOTE | ~2023-01-02 | XR_ITS ---
EXAMINATION: XR ABDOMEN KUB CLINICAL INDICATION: Positive Mata's sign with elevated LFTs COMPARISON: None TECHNIQUE: AP view of the abdomen. FINDINGS: The bowel gas pattern is normal with no evidence of ileus or obstruction. No free air is seen. Temperature probe in rectum. There is a large amount of retroperitoneal fat seen surrounding the kidneys making them conspicuous. These are not persistent nephrograms as there does not appear to be a history of IV contrast reaction. No unusual soft tissue calcifications are noted. Degenerative changes are noted in the spine. XR/XR abdomen 1V IMPRESSION: No evidence of bowel obstruction or free air.
--- NOTE | 2023-01-02 16:29 | ECG_ITS ---
Test Reason : hypotensive Blood Pressure : / mmHG Vent. Rate : 097 BPM Atrial Rate : 097 BPM P-R Int : 146 ms QRS Dur : 074 ms QT Int : 378 ms P-R-T Axes : 093 050 057 degrees QTc Int : 480 ms Artifact in tracing Sinus rhythm with Premature atrial complexes Nonspecific ST and T wave abnormality Abnormal ECG When compared with ECG of 22-OCT-2022 23:24, Premature atrial complexes are now Present Referred By: Connie Gamino Electronically Signed By:Elmo Rock
--- NOTE | 2023-01-02 16:33 | ED_ITS ---
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 stenosis.. The IVC appears unremarkable. PELVIC VISCERA: Unremarkable OSSEUS STRUCTURES: Mild degenerative changes are noted in the spine. No bony destructive lesions are seen. CT/CT chest wo IV con IMPRESSION: 1.? A cause for the patient's sepsis has not been found. 2.? 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 Time includes review of lab data, radiology results, discussion with consultants, and monitoring for potential decompensation. Intervention performed as documented. Discharge Plan Discharge Clinical Impression: COPD (chronic obstructive pulmonary disease), Severe sepsis, Respiratory failure Patient Disposition: Admitted As Inpatient Prescriptions: No Action metoprolol succinate 25 mg tablet extended release 24 hr 25 mg PO DAILY 90 Days Qty: 90 3RF atorvastatin 40 mg tablet 40 mg PO DAILY 90 Days Qty: 90 3RF ipratropium-albuterol 0.5 mg-3 mg(2.5 mg base)/3 mL solution for nebulization 3 ml inhalation QID PRN (Reason: for wheezing) Qty: 180 0RF omeprazole 20 mg Capsule,Delayed Release(Dr/Ec) 20 mg PO DAILY@0630 Qty: 30 0RF hydrochlorothiazide 25 mg tablet 25 mg PO DAILY albuterol sulfate [ProAir HFA] 90 mcg/actuation HFA aerosol inhaler 2 puff inhalation Q6H PRN (Reason: Wheezing) aspirin 81 mg tablet,delayed release (DR/EC) 81 mg PO DAILY
[2023-01-02] MEDS: 0.9 % Sodium Chloride 2,000 ML 999 ML IVCONT (16:48)
--- NOTE | 2023-01-02 17:00 | PHA.MEDREC ---
Pharmacy Consult ? Medication Reconciliation Pharmacy has completed the medication reconciliation.
[2023-01-02 17:12] LABS: MANUAL DIFF FLAG NO
[2023-01-02 17:17] LABS: Basophils Absolute Auto 0.2 X10*3/uL (0.0-0.2); Basophils Percent Auto 0.4 % (0-2); Imm Gran Abs Auto 1.95 X10*3/uL (0.00-0.03); Imm Gran Pct Auto 3.3 % (0.0-0.4); Lymphocytes Absolute Auto 1.2 X10*3/uL (1.2-4.9); Lymphocytes Percent Auto 2.1 % (20-40); Mean Corpuscular HGB Conc 33.3 g/dl (31.0-36.0); Mean Corpuscular Hemoglobin 33.4 pg (27.0-33.0); Mean Corpuscular Volume 100.3 fL (80.0-98.0); Mean Platelet Volume 10.9 fL (9.4-12.4); Monocytes Percent Auto 1.8 % (2-11); NRBC Pct Auto 0.3 /100WBC (0.0-0.2); Neutrophils Absolute Auto 54.1 x10*3/uL (2.0-8.3); Neutrophils Percent Auto 92.4 % (45-73); Platelet Count 244 X10*3/uL (160-400); Red Blood Count 2.99 X10*6/uL (4.60-5.80); Red Cell Distribution Width 19.5 % (11.0-16.0); SCAN SMEAR FLAG 1
[2023-01-02] MEDS: Dextrose 50 % 25 GM/50 ML SYRINGE IVPUSH (17:20)
[2023-01-02] MEDS: Norepinephrine Bitartrate/D5W 8 MG/250 ML PLAST..BAG 6.38 MG IV (17:25)
[2023-01-02 17:29] LABS: VBG Base Excess -6.2 mmol/L; VBG HCO3 21 mmol/L (22-26); VBG pCO2 50 mmHg; VBG pH 7.23 (7.32-7.43); VBG pO2 54 mmHg
[2023-01-02 17:30] LABS: White Blood Count 58.5 X10*3/uL (4.8-10.8)
[2023-01-02 17:32] LABS: D Dimer High Sensitivity 641 NG/ML; IDNOW Serial# 9DB6401D; Influenza A Negative (Negative); Influenza B2 Negative (Negative)
[2023-01-02 17:34] LABS: Ammonia 27 umol/L (13-55)
[2023-01-02] MEDS: Piperacillin Sodium/Tazobactam 3.375 GM in 0.9 % Sodium Chloride 50 ML IV (17:34)
[2023-01-02 17:38] LABS: B Type Natriuretic Peptide 641 pg/mL (<100); Troponin-I High Sensitivity 49.3 ng/L (<3.5-35.0)
[2023-01-02 17:54] LABS: Appearance Urine Clear; Color Urine Dark Yellow; Glucose Urine UA Negative (Negative); Leukocyte Esterase Urine Negative (Negative); Nitrite Urine Negative (Negative); Specific Gravity - Urine 1.015 (1.005-1.025); Urine Blood Negative (Negative); Urine Ketones Negative (Negative); Urine Protein Negative (Neg-Trace)
[2023-01-02 17:59] LABS: Alanine Aminotransferase 285 U/L (0-40); Albumin Level 2.7 g/dL (3.5-5.0); Alkaline Phosphatase 126 U/L (39-117); Anion Gap 20 (12-20); Aspartate Amino Transferase 282 U/L (5-37); Bilirubin Direct 3.1 mg/dL (0.0-0.5); Bilirubin Total 4.6 mg/dL (0.0-1.0); Blood Urea Nitrogen 26 mg/dL (9-16); Calcium 8.3 mg/dL (8.4-10.2); Carbon Dioxide 17 mmol/L (22-29); Chloride 105 mmol/L (96-108); Estimated Glomerular Filt Rate 28; Glucose Random 199 mg/dL (60-115); Lipase 30 U/L (8-78); Magnesium 1.4 mg/dL (1.6-2.6); Potassium 3.9 mmol/L (3.3-5.1); Sodium 138 mmol/L (135-145); Total Protein 4.4 g/dL (6.5-8.0)
[2023-01-02 18:03] LABS: Venous Blood Gas Refer to POC result
[2023-01-02 18:06] LABS: TSH reflex Free T4 2.27 uIU/mL (0.32-4.0)
[2023-01-02] MEDS: Albuterol Sulfate (0.083%) 2.5 MG/3 ML VIAL.NEB 10 MG INHALE (18:09)
[2023-01-02 18:10] LABS: COVID-19 Test Negative (Negative); IDNOW Serial# 16C4AD1C
[2023-01-02] MEDS: methylPREDNISolone Sod Succ 125 MG/2 ML VIAL IVPUSH (18:14)
[2023-01-02 18:17] LABS: Glucose, Whole Blood 82 mg/dL (60-115)
[2023-01-02] MEDS: Magnesium Sulfate/H2O 2 GM/50 ML PIGGYBACK IV (18:18)
--- NOTE | 2023-01-02 18:27 | PC.NURSE ---
per md: okay to use central line.
--- NOTE | 2023-01-02 18:33 | PC.NURSE ---
plan to put on bipap when map reaches 60
--- NOTE | 2023-01-02 18:38 | PC.NURSE ---
pt on bipap at this time.
--- NOTE | 2023-01-02 18:52 | PC.NURSE ---
awaiting RT for CT scan.
[2023-01-02 19:10] LABS: Reflex Lactate? Lactic Acid Added
--- NOTE | 2023-01-02 20:11 | PC.NURSE ---
Report given to Ayla MCDUFFIE in ICU. Pending bed assignment.
[2023-01-02 20:17] LABS: ~Lactic Acid-LAB USE ONLY 3.9 mmol/L (0.5-2.0)
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
[2023-01-02] MEDS: Norepinephrine Bitartrate/D5W 8 MG/250 ML PLAST..BAG 94.4 MG IV (21:10)
[2023-01-02 21:36] LABS: Reflex Lactate? 2 Y
[2023-01-02] MEDS: Albuterol/Iprat 2.5/0.5MG 3 ML AMPUL.NEB INHALE (22:02)
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
[2023-01-02] MEDS: Enoxaparin Sodium 30 MG/0.3 ML SYRINGE SUBCUT (22:15)
[2023-01-02] MEDS: vancomycin HCL 1,000 MG, vancomycin HCL 750 MG in 0.9 % Sodium Chloride 500 ML 267.5 MG IV (22:16)
[2023-01-02 22:53] LABS: B Type Natriuretic Peptide 1108 pg/mL (<100)
[2023-01-02 22:56] LABS: Osmolality, Serum 290 mosm/kg (281-305); Troponin-I High Sensitivity 69.9 ng/L (<3.5-35.0)
[2023-01-02 23:00] LABS: Acetaminophen LAB < 17 mcg/mL (<30); C Reactive Protein 11.55 mg/dL (< or = 0.50); Salicylate < 5.0 mg/dL (15-30)
[2023-01-02 23:00] LABS: Vancomycin Trough < 2.0 mcg/mL (10.0-20.0)
[2023-01-02 23:01] LABS: ~Lactic Acid-LAB USE ONLY 5.3 mmol/L (0.5-2.0)
[2023-01-02] MEDS: Albumin Human 25 % 100 ML 133.33 ML IV (23:20)
[2023-01-02] MEDS: Norepinephrine Bitartrate/D5W 8 MG/250 ML PLAST..BAG 107.16 MG IV (23:21)
[2023-01-02 23:23] LABS: Magnesium 1.9 mg/dL (1.6-2.6)
[2023-01-02] MEDS: Vasopressin 20 UNIT/100 ML INFUS..BTL 12 UNIT IV (23:48)
[2023-01-02 23:50] LABS: VBG Base Excess -6.8 mmol/L; VBG HCO3 19 mmol/L (22-26); VBG pCO2 42 mmHg; VBG pH 7.27 (7.32-7.43); VBG pO2 55 mmHg
[2023-01-02 23:51] LABS: Erythrocyte Sedimentation Rate 8 MM/HR (0-15)
[2023-01-03] VITALS (47 sets, daily range): BP systolic 50–135; BP diastolic 23–81; PULSE 59–121; RESP 16–32; TEMP 35–37.9; O2SAT 82–100; BMI 24.2
[2023-01-03 00:02] LABS: INTERNATIONAL NORM RATIO 1.2 (0.9-1.1); Prothrombin Time 14.2 SEC (10.0-13.1)
[2023-01-03] MEDS: Albumin Human 25 % 100 ML 133.33 ML IV (00:08)
[2023-01-03 00:22] LABS: Amphetamine Screen Urine Not Detected (Not Detect); Barbiturates, Urine Not Detected (Not Detect); Benzodiazepines Screen Urine Not Detected (Not Detect); Cannabinoid Screen Urine Not Detected (Not Detect); Cocaine Screen Urine Not Detected (Not Detect); Fentanyl, urine Not Detected (Not Detect); Opiate Screen Urine Not Detected (Not Detect); Phencyclidine Screen Urine Not Detected (Not Detect)
[2023-01-03 00:36] LABS: Glucose, Whole Blood 144 mg/dL (60-115)
[2023-01-03 00:47] LABS: Venous Blood Gas Refer to POC result
[2023-01-03] MEDS: Norepinephrine Bitartrate/D5W 8 MG/250 ML PLAST..BAG 109.71 MG IV (01:31)
[2023-01-03] MEDS: Norepinephrine Bitartrate/D5W 8 MG/250 ML PLAST..BAG 112.26 MG IV ×4 (03:43→09:53)
[2023-01-03] MEDS: Furosemide 20 MG/2 ML VIAL IVPUSH (03:55)
[2023-01-03 04:15] LABS: VBG Base Excess -11.1 mmol/L; VBG HCO3 15 mmol/L (22-26); VBG pCO2 36 mmHg; VBG pH 7.23 (7.32-7.43); VBG pO2 57 mmHg
[2023-01-03 04:24] LABS: Hematocrit 29.3 % (42.0-52.0); Hemoglobin 9.6 g/dl (14.0-18.0); Mean Corpuscular HGB Conc 32.8 g/dl (31.0-36.0); Mean Corpuscular Hemoglobin 32.8 pg (27.0-33.0); Mean Platelet Volume 10.4 fL (9.4-12.4); NRBC Pct Auto 0.4 /100WBC (0.0-0.2); Platelet Count 223 X10*3/uL (160-400); Red Blood Count 2.93 X10*6/uL (4.60-5.80); Red Cell Distribution Width 19.2 % (11.0-16.0)
[2023-01-03] MEDS: Albuterol/Iprat 2.5/0.5MG 3 ML AMPUL.NEB INHALE ×2 (04:24→07:58)
[2023-01-03 04:25] LABS: WBC ABN SCTR FOR CBC 1
[2023-01-03 04:28] LABS: White Blood Count 51.3 X10*3/uL (4.8-10.8)
[2023-01-03 04:32] LABS: HBS Num1 0.13 mIU/mL (0-7.99); HBc Num1 0.08 S/CO (0.00-0.79); HBsAGNum1 0.25 S/CO (0.00-0.99); HIV AB/AG Nonreactive (Nonreactive); HIV Num 1 0.18 S/CO (0.00-0.99); Hepatitis B Core Antibody Nonreactive (Nonreactive); Hepatitis B Surface Antigen Negative (Negative); ~HepC Num1 0.07 S/CO (0.00-0.79); ~Hepatitis B Surface Antibody NONREACTIVE (Nonreactive); ~Hepatitis C Antibody Nonreactive (Nonreactive)
[2023-01-03 04:33] LABS: INTERNATIONAL NORM RATIO 1.7 (0.9-1.1); Prothrombin Time 19.7 SEC (10.0-13.1)
[2023-01-03 04:34] LABS: D Dimer High Sensitivity 633 NG/ML
[2023-01-03 04:35] LABS: Partial Thromboplastin Time 34.4 SEC (26.0-36.4)
[2023-01-03 04:47] LABS: B Type Natriuretic Peptide 2141 pg/mL (<100)
[2023-01-03 04:48] LABS: Alanine Aminotransferase 384 U/L (0-40); Albumin Level 3.8 g/dL (3.5-5.0); Alkaline Phosphatase 98 U/L (39-117); Anion Gap 24 (12-20); Aspartate Amino Transferase 358 U/L (5-37); Band Neutrophils Percent 16 % (3-5); Bilirubin Total 5.5 mg/dL (0.0-1.0); Blood Urea Nitrogen 31 mg/dL (9-16); C Reactive Protein 11.52 mg/dL (< or = 0.50); Carbon Dioxide 13 mmol/L (22-29); Chloride 104 mmol/L (96-108); Estimated Glomerular Filt Rate 22; Glucose Random 195 mg/dL (60-115); Lactate Dehydrogenase 563 U/L (118-273); Magnesium 1.9 mg/dL (1.6-2.6); Monocytes Percent Manual 2 % (2-11); Neutrophils Absolute Manual 50.3 X10*3/uL (2.0-8.3); Neutrophils Percent Manual 82 % (45-73); Phosphorus 6.5 mg/dL (2.7-4.5); Potassium 4.8 mmol/L (3.3-5.1); Sodium 136 mmol/L (135-145); Total Protein 5.2 g/dL (6.5-8.0)
[2023-01-03 04:51] LABS: Acanthocytes 1+ (0-2) /OIF; Large Platelet PRESENT; Macrocytosis 1+ (5-14) /OIF; Ovalocytes 1+ (5-14) /OIF; Platelet Estimate NORMAL (NORMAL); Platelet Morphology Comment NORMAL; RBC Morphology NOTED
[2023-01-03 04:52] LABS: Troponin-I High Sensitivity 146.4 ng/L (<3.5-35.0)
[2023-01-03 04:52] LABS: Burr Cells 1+ (0-2) /OIF; Dohle Bodies PRESENT; Pappenheimer Bodies PRESENT
[2023-01-03 04:53] LABS: Lactic Acid 5.1 mmol/L (0.5-2.0)
[2023-01-03 05:20] LABS: Venous Blood Gas Refer to POC result
[2023-01-03] MEDS: Vasopressin 20 UNIT/100 ML INFUS..BTL 12 UNIT IV ×2 (05:22→12:35)
--- NOTE | 2023-01-03 05:32 | PC.NURSE ---
Assumed care 2300, pt A&O but drowsy, ST on tele, on bp stable on levo and vasopressin, CVP 10, on bipap, sats 100%, tolerating well, fine crackles in base, ROTARY CUTTER Kanchan made aware, IV lasoix 20 mg given, short break from bipap placed on 3L NC, mouth care provided pt requesting bipap to be placed back, NPO POC 144, Hunter without urine out put this shift ROTARY CUTTER made aware, lasix given without effect, BS showed nothing in bladder repo q2 hours call [facility] within reach.
[2023-01-03 05:59] LABS: Glucose, Whole Blood 239 mg/dL (60-115)
[2023-01-03 06:21] LABS: Reflex Lactate? Lactic Acid Added
[2023-01-03] MEDS: Doxycycline Hyclate 100 MG in 0.9 % Sodium Chloride 250 ML 166.67 MG IV (06:42)
[2023-01-03 06:57] LABS: ~Lactic Acid-LAB USE ONLY 4.7 mmol/L (0.5-2.0)
--- NOTE | 2023-01-03 07:00 | CA_ITS ---
Transthoracic Echocardiogram Patient (Last, First, Middle): Russel Adorno L Gender: Male Date of : 1945 Age: 77 Procedure Date: 01/03/2023 Procedure Type: Transthoracic Echocardiogram Location: ICU Height: 167.64 cm Weight: 67.59 kg BSA: 1.76 m2 Heart Rate: bpm BP: 119 / 55 mmHg Factory Supervisor: Referring MD: Kanchan Lind NP Symptoms: /Hypotension Study Quality: Fair ECG Rhythm: Sinus Conclusions: - Normal left ventricular cavity size. There is mildly increased left ventricular wall thickness. The left ventricular systolic function is severely decreased. The visually estimated ejection fraction is between 20-25%. - The apical anterior, apical inferior, mid anterior, mid inferior, apical lateral, apical septum, mid anterolateral, mid inferoseptal, mid anteroseptal, and mid inferolateral segments are akinetic. - The apex segment is dyskinetic. 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 Findings Left Ventricle Normal left ventricular cavity size. There is mildly increased left ventricular wall thickness. The left ventricular systolic function is severely decreased. The visually estimated ejection fraction is between 20 25%. There is evidence of regional wall motion abnormalities. Diastolic function is indeterminate on the basis of available data. Wall Motion Rest Echo Findings The apical anterior, apical inferior, mid anterior, mid inferior, apical lateral, apical septum, mid anterolateral, mid inferoseptal, mid anteroseptal, and mid inferolateral segments are akinetic. The apex segment is dyskinetic. Right Ventricle Normal right ventricular cavity size. There is borderline right ventricular systolic function. Atria The left atrium is normal in size. Aortic Valve The aortic valve was not well visualized. There is mild calcification of the aortic valve. There is no aortic valve stenosis. There is no aortic valve regurgitation. Mitral Valve There is mild anterior mitral leaflet thickening. There is trace mitral valve regurgitation. There is no mitral valve stenosis. Pulmonic Valve The pulmonic valve was not well visualized. Tricuspid Valve Normal tricuspid valve structure. There is mild tricuspid valve regurgitation. Indeterminate right atrial pressure. Severe pulmonary hypertension is present. Great Vessels There is mild dilatation of the ascending aorta measuring 3.50 cm. The visualized portions of the pulmonary artery and branches are normal. Venous The inferior vena cava was not well visualized. Pericardium/Pleural There is no evidence of pericardial effusion. Prior Study Comparison Changes noted compared to prior study. RWMA, EF 20-25%. Measurements 2D Linear Measurements IVSd: 1.23 0.6-0.9/0.6-1.0 cm LVIDd: 4.29 3.9-5.3/4.2-5.9 cm LVIDd Index: 2.44 2.4-3.2/2.2-3.1 cm/m2 LVIDs: 3.73 2.0-3.6 cm LVPWd: 1.20 0.7-1.1 cm Ao Root: 3.40 2.1-3.5 cm LA Diam: 3.00 2.7-3.8/3.0-4.0 cm LAIDs Index: 1.70 1.5-2.3 cm/m2 LV Mass: 233.49 67-162/88-224 g LV Mass Index: 132.67 43-95/49-115 g/m2 LVOT Diam: 2.00 3.0+(-)1.3 cm 2D Systolic Function EF 4C: 20.80 >55% EF 2C: 28.30 >55% EF BiP: 25.50 >55% Mitral Valve MV Pk E: 1.12 MV Decel Time: 171.00 E'Lateral: 11.40 E'Medial: 6.53 E/E' Med: 17.20 E/E' Lat: 9.80 PHT: 50.00 MVA PHT: 4.40 Decel Nye: 6.54 Aortic Valve AoV Pk José: 1.59 AoV Mn José: 0.85 AoV VTI: 0.18 AoV Pk Grad: 10.00 Aov Mn Grad: 4.00 SAURABH Cont.VTI: 1.96 LVOT LVOT Pk José: 0.86 LVOT Mn José: 0.47 LVOT VTI: 0.12 LVOT Pk Grad: 3.00 LVOT Mn Grad: 1.00 LVOT Diam: 2.00 LVOT Area: 3.14 Diastolic Function MV Pk E: 1.12 E'Medial: 6.53 E/E' Med: 17.20 E' Laterial: 11.40 E/E' Lat: 9.80 Right Ventricle TAPSE (mm): 16.00 TVS' José: 10.00 Tricuspid Valve TR Pk José: 3.76 TR Pk Grad: 57.00 RA Press: 8.00 RVSP: 65.00 Great Vessels Aorta Ao Root-2D: 3.40 2.0-3.7 cm Ao Asc: 3.50 2.1-3.4 cm Pulmonary Valve PV Pk José: 1.36 Peak PV Grad: 7.00 Updated in Other Vendor System with Status of Final Elmo Rock MD electronically signed on 01/03/2023 3:35:05 PM with status of Final
--- NOTE | 2023-01-03 07:31 | P.PNCC_ITS ---
Subjective Subjective Date of Service: 01/03/23 Interval History: 77-year-old male who came in markedly hypotensive and hypoxic requiring 2 pressors namely Levophed and vasopressin and along with 4 L of resuscitative IV fluid to bring his pressures up to an adequate level above 60 but the damage probably already done because of prolonged hypotension leading to progressive ARDS with hypoxic respiratory failure requiring intubation today which went without complication and also he remains an uric clearly ATN gallbladder since last night has grown from 6 cm to 17 thick wall and the fluid surrounding with increasing liver function tests and I would very very positive Mata sign significant amount of sludge/ pus in the gallbladder so it looks like acute cholecystitis is the issue and now that he is intubated he can not comfortably go over for percutaneous drain Critical Care Time (minutes): 60 Physical Exam Vital Signs: Vital Signs: Last Vital Signs Temp 99.0 F 01/03/23 06:00 Pulse 100 01/03/23 06:00 Resp 25 H 01/03/23 06:00 BP 119/54 L 01/03/23 06:00 Pulse Ox 100 01/03/23 06:00 O2 Del Method 01/03/23 06:00 O2 Flow Rate 50 01/03/23 04:00 FiO2 50 01/03/23 06:00 BMI result Body Mass Index 24.2 he was remaining awake and alert but with increasing respiratory distress and as a result lethargy from his marked tachypnea and that precipitated the the need for intubation blood pressure remained well-supported he never demonstrated livedo or ac rocyanosis neurologically intact no focality bedside echo demonstrating fairly extensive area of apical akinesis consistent with infarct of und * At aGte versus possible Takotsubo syndrome and that of course will remain to be seen but overall ejection fraction now is in the mid 20s at best with noncritical but heavily calcified aortic valve which is trileaflet significant pulmonary hypertension also noted with PA pressure probably in the 70s and of course by CT scan extensive and emphysematous changes bilaterally and he is beginning to use accessory muscles with a little bit of diaphragmatic effort for expiration and CVP is climbed a little bit but currently post intubation CVP has receded to about 8 9 Objective Data Labs 01/03/23 04:12 01/03/23 04:12 Labs: Laboratory Results - last 24 hr 01/02/23 01/02/23 01/02/23 17:01 17:01 17:01 WBC RBC Hgb Hct MCV MCH MCHC RDW Plt Count MPV Immature Gran % (Auto) Neut % (Auto) Lymph % (Auto) [place] % (Auto) Eos % (Auto) Baso % (Auto) Lymph # (Auto) [place] # (Auto) Eos # (Auto) Baso # (Auto) Abs Immat Gran (auto) Absolute Neuts (auto) Absolute Nucleated RBC Nucleated RBC % (auto) Neutrophils % (Manual) Band Neutrophils % Monocytes % (Manual) Abs Neuts (Manual) Monocytes # (Manual) Dohle Bodies Platelet Estimate Large Platelets Plt Morphology Comment RBC Morphology Macrocytosis Pappenheimer Bodies Ovalocytes [place] Cells Acanthocytes (Spur) ESR PT INR APTT D-Dimer High Sensitivty VBG pH VBG pCO2 VBG pO2 VBG HCO3 VBG O2 Saturation VBG Base Excess Sodium Potassium Chloride Carbon Dioxide Anion Gap BUN Creatinine Estim Creat Clear Calc Estimated GFR POC Glucose Random Glucose Osmolality Lactic Acid Lactic Acid F/U @ 2Hr Lactic Acid F/U @ 4Hr Calcium Phosphorus Magnesium Total Bilirubin Direct Bilirubin AST ALT Alkaline Phosphatase Ammonia Lactate Dehydrogenase Troponin I High Sens C-Reactive Protein B-Natriuretic Peptide Total Protein Albumin Lipase TSH Cancelled Urine Color Urine Appearance Urine pH Ur Specific [place] Urine Protein Urine Glucose (UA) Urine Ketones Urine Blood Urine Nitrite Ur Leukocyte Esterase Vancomycin Trough Salicylates Urine Opiates Screen Urine Fentanyl Screen Acetaminophen Ur Barbiturates Screen Ur Phencyclidine Scrn Ur Amphetamines Screen U Benzodiazepines Scrn Urine Cocaine Screen U Marijuana (THC) Screen COVID-19 ([facility]) Negative COVID-19 Clin Com See Note Hep Bs Antigen Hep Bs Antibody Hep B Core Total Ab Hepatitis C Ab (EIA) HIV 1&2 Ab/P24 Ag 4thGn Influenza Type A ([facility]RE[facility]) Negative Influenza Type B ([facility]REA) Negative Influenza A & B Note See Note 01/02/23 01/02/23 01/02/23 17:01 17:01 17:02 WBC 58.5 H* RBC 2.99 L Hgb 10.0 L Hct 30.0 L MCV 100.3 H MCH 33.4 H MCHC 33.3 RDW 19.5 H Plt Count 244 D MPV 10.9 Immature Gran % (Auto) 3.3 H Neut % (Auto) 92.4 H Lymph % (Auto) 2.1 L [place] % (Auto) 1.8 L Eos % (Auto) 0.0 Baso % (Auto) 0.4 Lymph # (Auto) 1.2 [place] # (Auto) 1.0 Eos # (Auto) 0.0 Baso # (Auto) 0.2 Abs Immat Gran (auto) 1.95 H Absolute Neuts (auto) 54.1 H Absolute Nucleated RBC 0.200 H Nucleated RBC % (auto) 0.3 H Neutrophils % (Manual) Band Neutrophils % Monocytes % (Manual) Abs Neuts (Manual) Monocytes # (Manual) Dohle Bodies Platelet Estimate Large Platelets Plt Morphology Comment RBC Morphology Macrocytosis Pappenheimer Bodies Ovalocytes [place] Cells Acanthocytes (Spur) ESR PT INR APTT D-Dimer High Sensitivty 641 VBG pH VBG pCO2 VBG pO2 VBG HCO3 VBG O2 Saturation VBG Base Excess Sodium Potassium Chloride Carbon Dioxide Anion Gap BUN Creatinine Estim Creat Clear Calc Estimated GFR POC Glucose Random Glucose Osmolality Lactic Acid Lactic Acid F/U @ 2Hr Lactic Acid F/U @ 4Hr Calcium Phosphorus Magnesium Total Bilirubin Direct Bilirubin AST ALT Alkaline Phosphatase Ammonia 27 Lactate Dehydrogenase Troponin I High Sens C-Reactive Protein B-Natriuretic Peptide Total Protein Albumin Lipase TSH Urine Color Urine Appearance Urine pH Ur Specific [place] Urine Protein Urine Glucose (UA) Urine Ketones Urine Blood Urine Nitrite Ur Leukocyte Esterase Vancomycin Trough Salicylates Urine Opiates Screen Urine Fentanyl Screen Acetaminophen Ur Barbiturates Screen Ur Phencyclidine Scrn Ur Amphetamines Screen U Benzodiazepines Scrn Urine Cocaine Screen U Marijuana (THC) Screen COVID-19 ([facility]) COVID-19 Clin Com Hep Bs Antigen Hep Bs Antibody Hep B Core Total Ab Hepatitis C Ab (EIA) HIV 1&2 Ab/P24 Ag 4thGn Influenza Type A ([facility]REA) Influenza Type B (ANDREA) Influenza A & B Note 01/02/23 01/02/23 01/02/23 17:02 17:02 17:02 WBC RBC Hgb Hct MCV MCH MCHC RDW Plt Count MPV Immature Gran % (Auto) Neut % (Auto) Lymph % (Auto) [place] % (Auto) Eos % (Auto) Baso % (Auto) Lymph # (Auto) [place] # (Auto) Eos # (Auto) Baso # (Auto) Abs Immat Gran (auto) Absolute Neuts (auto) Absolute Nucleated RBC Nucleated RBC % (auto) Neutrophils % (Manual) Band Neutrophils % Monocytes % (Manual) Abs Neuts (Manual) Monocytes # (Manual) Dohle Bodies Platelet Estimate Large Platelets Plt Morphology Comment RBC Morphology Macrocytosis Pappenheimer Bodies Ovalocytes [place] Cells Acanthocytes (Spur) ESR PT 14.2 H INR 1.2 H APTT D-Dimer High Sensitivty VBG pH VBG pCO2 VBG pO2 VBG HCO3 VBG O2 Saturation VBG Base Excess Sodium 138 Potassium 3.9 Chloride 105 Carbon Dioxide 17 L Anion Gap 20 BUN 26 H Creatinine 2.26 H Estim Creat Clear Calc 25.0 Estimated GFR 28 POC Glucose Random Glucose 199 H Osmolality Lactic Acid 8.0 H* Lactic Acid F/U @ 2Hr Lactic Acid F/U @ 4Hr Calcium 8.3 L D Phosphorus Magnesium 1.4 L* Total Bilirubin 4.6 H Direct Bilirubin 3.1 H AST 282 H ALT 285 H Alkaline Phosphatase 126 H Ammonia Lactate Dehydrogenase Troponin I High Sens C-Reactive Protein B-Natriuretic Peptide Total Protein 4.4 L Albumin 2.7 L Lipase 30 TSH 2.27 Urine Color Urine Appearance Urine pH Ur Specific [place] Urine Protein Urine Glucose (UA) Urine Ketones Urine Blood Urine Nitrite Ur Leukocyte Esterase Vancomycin Trough Salicylates Urine Opiates Screen Urine Fentanyl Screen Acetaminophen Ur Barbiturates Screen Ur Phencyclidine Scrn Ur Amphetamines Screen U Benzodiazepines Scrn Urine Cocaine Screen U Marijuana (THC) Screen COVID-19 ([facility]) COVID-19 Clin Com Hep Bs Antigen Hep Bs Antibody Hep B Core Total Ab Hepatitis C Ab (EIA) HIV 1&2 Ab/P24 Ag 4thGn Influenza Type A ([facility]) Influenza Type B ([facility]) Influenza A & B Note 01/02/23 01/02/23 01/02/23 17:02 17:02 17:11 WBC RBC Hgb Hct MCV MCH MCHC RDW Plt Count MPV Immature Gran % (Auto) Neut % (Auto) Lymph % (Auto) [place] % (Auto) Eos % (Auto) Baso % (Auto) Lymph # (Auto) [place] # (Auto) Eos # (Auto) Baso # (Auto) Abs Immat Gran (auto) Absolute Neuts (auto) Absolute Nucleated RBC Nucleated RBC % (auto) Neutrophils % (Manual) Band Neutrophils % Monocytes % (Manual) Abs Neuts (Manual) Monocytes # (Manual) Dohle Bodies Platelet Estimate Large Platelets Plt Morphology Comment RBC Morphology Macrocytosis P[place]enheimer Bodies Ovalocytes [place] Cells Acanthocytes (Spur) ESR PT INR APTT D-Dimer High Sensitivty VBG pH 7.23 L VBG pCO2 50 VBG pO2 54 VBG HCO3 21 L VBG O2 Saturation 72.0 VBG Base Excess -6.2 Sodium Potassium Chloride Carbon Dioxide Anion Gap BUN Creatinine Estim Creat Clear Calc Estimated GFR POC Glucose Random Glucose Osmolality Lactic Acid Lactic Acid F/U @ 2Hr Lactic Acid F/U @ 4Hr Calcium Phosphorus Magnesium Total Bilirubin Direct Bilirubin AST ALT Alkaline Phosphatase Ammonia Lactate Dehydrogenase Troponin I High Sens 49.3 H C-Reactive Protein B-Natriuretic Peptide 641 H Total Protein Albumin Lipase TSH Urine Color Urine Appearance Urine pH Ur Specific [place] Urine Protein Urine Glucose (UA) Urine Ketones Urine Blood Urine Nitrite Ur Leukocyte Esterase Vancomycin Trough Salicylates Urine Opiates Screen Urine Fentanyl Screen Acetaminophen Ur Barbiturates Screen Ur Phencyclidine Scrn Ur Amphetamines Screen U Benzodiazepines Scrn Urine Cocaine Screen U Marijuana (THC) Screen COVID-19 ([facility]) COVID-19 Clin Com Hep Bs Antigen Hep Bs Antibody Hep B Core Total Ab Hepatitis C Ab (EIA) HIV 1&2 Ab/P24 Ag 4thGn Influenza Type A ([facility]) Influenza Type B ([facility]) Influenza A & B Note 01/02/23 01/02/23 01/02/23 17:46 18:14 19:31 WBC RBC Hgb Hct MCV MCH MCHC RDW Plt Count MPV Immature Gran % (Auto) Neut % (Auto) Lymph % (Auto) [place] % (Auto) Eos % (Auto) Baso % (Auto) Lymph # (Auto) [place] # (Auto) Eos # (Auto) Baso # (Auto) Abs Immat Gran (auto) Absolute Neuts (auto) Absolute Nucleated RBC Nucleated RBC % (auto) Neutrophils % (Manual) Band Neutrophils % Monocytes % (Manual) Abs Neuts (Manual) Monocytes # (Manual) Dohle Bodies Platelet Estimate Large Platelets Plt Morphology Comment RBC Morphology Macrocytosis Pappenheimer Bodies Ovalocytes [place] Cells Acanthocytes (Spur) ESR PT INR APTT D-Dimer High Sensitivty VBG pH VBG pCO2 VBG pO2 VBG HCO3 VBG O2 Saturation VBG Base Excess Sodium Potassium Chloride Carbon Dioxide Anion Gap BUN Creatinine Estim Creat Clear Calc Estimated GFR POC Glucose 82 Random Glucose Osmolality Lactic Acid Lactic Acid F/U @ 2Hr 3.9 H* Lactic Acid F/U @ 4Hr Calcium Phosphorus Magnesium Total Bilirubin Direct Bilirubin AST ALT Alkaline Phosphatase Ammonia Lactate Dehydrogenase Troponin I High Sens C-Reactive Protein B-Natriuretic Peptide Total Protein Albumin Lipase TSH Urine Color Dark Yellow Urine Appearance Clear Urine pH 8.0 Ur Specific [place] 1.015 Urine Protein Negative Urine Glucose (UA) Negative Urine Ketones Negative Urine Blood Negative Urine Nitrite Negative Ur Leukocyte Esterase Negative Vancomycin Trough Salicylates Urine Opiates Screen Urine Fentanyl Screen Acetaminophen Ur Barbiturates Screen Ur Phencyclidine Scrn Ur Amphetamines Screen U Benzodiazepines Scrn Urine Cocaine Screen U Marijuana (THC) Screen COVID-19 ([facility]) COVID-19 Clin Com Hep Bs Antigen Hep Bs Antibody Hep B Core Total Ab Hepatitis C Ab (EIA) HIV 1&2 Ab/P24 Ag 4thGn Influenza Type A ([facility]) Influenza Type B ([facility]) Influenza A & B Note 01/02/23 01/02/23 01/02/23 22:16 22:16 22:16 WBC RBC Hgb Hct MCV MCH MCHC RDW Plt Count MPV Immature Gran % (Auto) Neut % (Auto) Lymph % (Auto) [place] % (Auto) Eos % (Auto) Baso % (Auto) Lymph # (Auto) [place] # (Auto) Eos # (Auto) Baso # (Auto) Abs Immat Gran (auto) Absolute Neuts (auto) Absolute Nucleated RBC Nucleated RBC % (auto) Neutrophils % (Manual) Band Neutrophils % Monocytes % (Manual) Abs Neuts (Manual) Monocytes # (Manual) Dohle Bodies Platelet Estimate Large Platelets Plt Morphology Comment RBC Morphology Macrocytosis Pappenheimer Bodies Ovalocytes [place] Cells Acanthocytes (Spur) ESR PT INR APTT D-Dimer High Sensitivty VBG pH VBG pCO2 VBG pO2 VBG HCO3 VBG O2 Saturation VBG Base Excess Sodium Potassium Chloride Carbon Dioxide Anion Gap BUN Creatinine Estim Creat Clear Calc Estimated GFR POC Glucose Random Glucose Osmolality 290 Lactic Acid Lactic Acid F/U @ 2Hr Lactic Acid F/U @ 4Hr Calcium Phosphorus Magnesium Total Bilirubin Direct Bilirubin AST ALT Alkaline Phosphatase Ammonia Lactate Dehydrogenase Troponin I High Sens 69.9 H C-Reactive Protein B-Natriuretic Peptide 1108 H Total Protein Albumin Lipase TSH Urine Color Urine Appearance Urine pH Ur Specific [place] Urine Protein Urine Glucose (UA) Urine Ketones Urine Blood Urine Nitrite Ur Leukocyte Esterase Vancomycin Trough Salicylates Urine Opiates Screen Urine Fentanyl Screen Acetaminophen Ur Barbiturates Screen Ur Phencyclidine Scrn Ur Amphetamines Screen U Benzodiazepines Scrn Urine Cocaine Screen U Marijuana (THC) Screen COVID-19 ([facility]) COVID-19 Clin Com Hep Bs Antigen Hep Bs Antibody Hep B Core Total Ab Hepatitis C Ab (EIA) HIV 1&2 Ab/P24 Ag 4thGn Influenza Type A ([facility]) Influenza Type B ([facility]) Influenza A & B Note 01/02/23 01/02/23 01/02/23 22:16 22:16 22:16 WBC RBC Hgb Hct MCV MCH MCHC RDW Plt Count MPV Immature Gran % (Auto) Neut % (Auto) Lymph % (Auto) [place] % (Auto) Eos % (Auto) Baso % (Auto) Lymph # (Auto) [place] # (Auto) Eos # (Auto) Baso # (Auto) Abs Immat Gran (auto) Absolute Neuts (auto) Absolute Nucleated RBC Nucleated RBC % (auto) Neutrophils % (Manual) Band Neutrophils % Monocytes % (Manual) Abs Neuts (Manual) Monocytes # (Manual) Dohle Bodies Platelet Estimate Large Platelets Plt Morphology Comment RBC Morphology Macrocytosis P[place]enheimer Bodies Ovalocytes [place] Cells Acanthocytes (Spur) ESR 8 PT INR APTT D-Dimer High Sensitivty VBG pH VBG pCO2 VBG pO2 VBG HCO3 VBG O2 Saturation VBG Base Excess Sodium Potassium Chloride Carbon Dioxide Anion Gap BUN Creatinine Estim Creat Clear Calc Estimated GFR POC Glucose Random Glucose Osmolality Lactic Acid Lactic Acid F/U @ 2Hr Lactic Acid F/U @ 4Hr Calcium Phosphorus Magnesium 1.9 Total Bilirubin Direct Bilirubin AST ALT Alkaline Phosphatase Ammonia Lactate Dehydrogenase Troponin I High Sens C-Reactive Protein 11.55 H B-Natriuretic Peptide Total Protein Albumin Lipase TSH Urine Color Urine Appearance Urine pH Ur Specific [place] Urine Protein Urine Glucose (UA) Urine Ketones Urine Blood Urine Nitrite Ur Leukocyte Esterase Vancomycin Trough Salicylates < 5.0 L Urine Opiates Screen Urine Fentanyl Screen Acetaminophen < 17 Ur Barbiturates Screen Ur Phencyclidine Scrn Ur Amphetamines Screen U Benzodiazepines Scrn Urine Cocaine Screen U Marijuana (THC) Screen COVID-19 ([facility]) COVID-19 Clin Com Hep Bs Antigen Negative Hep Bs Antibody NONREACTIVE Hep B Core Total Ab Nonreactive Hepatitis C Ab (EIA) Nonreactive HIV 1&2 Ab/P24 Ag 4thGn Nonreactive Influenza Type A ([facility]) Influenza Type B ([facility]) Influenza A & B Note 01/02/23 01/02/2323 22:16 22:19 23:42 WBC RBC Hgb Hct MCV MCH MCHC RDW Plt Count MPV Immature Gran % (Auto) Neut % (Auto) Lymph % (Auto) [place] % (Auto) Eos % (Auto) Baso % (Auto) Lymph # (Auto) [place] # (Auto) Eos # (Auto) Baso # (Auto) Abs Immat Gran (auto) Absolute Neuts (auto) Absolute Nucleated RBC Nucleated RBC % (auto) Neutrophils % (Manual) Band Neutrophils % Monocytes % (Manual) Abs Neuts (Manual) Monocytes # (Manual) Dohle Bodies Platelet Estimate Large Platelets Plt Morphology Comment RBC Morphology Macrocytosis Pappenheimer Bodies Ovalocytes [place] Cells Acanthocytes (Spur) ESR PT INR APTT D-Dimer High Sensitivty VBG pH 7.27 L VBG pCO2 42 VBG pO2 55 VBG HCO3 19 L VBG O2 Saturation 81.0 VBG Base Excess -6.8 Sodium Potassium Chloride Carbon Dioxide Anion Gap BUN Creatinine Estim Creat Clear Calc Estimated GFR POC Glucose Random Glucose Osmolality Lactic Acid Lactic Acid F/U @ 2Hr Lactic Acid F/U @ 4Hr 5.3 H* Calcium Phosphorus Magnesium Total Bilirubin Direct Bilirubin AST ALT Alkaline Phosphatase Ammonia Lactate Dehydrogenase Troponin I High Sens C-Reactive Protein B-Natriuretic Peptide Total Protein Albumin Lipase TSH Urine Color Urine Appearance Urine pH Ur Specific [place] Urine Protein Urine Glucose (UA) Urine Ketones Urine Blood Urine Nitrite Ur Leukocyte Esterase Vancomycin Trough < 2.0 L Salicylates Urine Opiates Screen Urine Fentanyl Screen Acetaminophen Ur Barbiturates Screen Ur Phencyclidine Scrn Ur Amphetamines Screen U Benzodiazepines Scrn Urine Cocaine Screen U Marijuana (THC) Screen COVID-19 ([facility]) COVID-19 Clin Com Hep Bs Antigen Hep Bs Antibody Hep B Core Total Ab Hepatitis C Ab (EIA) HIV 1&2 Ab/P24 Ag 4thGn Influenza Type A ([facility]) Influenza Type B ([facility]) Influenza A & B Note 01/02/23 01/03/23 01/03/23 23:53 00:32 04:06 WBC RBC Hgb Hct MCV MCH MCHC RDW Plt Count MPV Immature Gran % (Auto) Neut % (Auto) Lymph % (Auto) [place] % (Auto) Eos % (Auto) Baso % (Auto) Lymph # (Auto) [place] # (Auto) Eos # (Auto) Baso # (Auto) Abs Immat Gran (auto) Absolute Neuts (auto) Absolute Nucleated RBC Nucleated RBC % (auto) Neutrophils % (Manual) Band Neutrophils % Monocytes % (Manual) Abs Neuts (Manual) Monocytes # (Manual) Dohle Bodies Platelet Estimate Large Platelets Plt Morphology Comment RBC Morphology Macrocytosis P[place]enheimer Bodies Ovalocytes [place] Cells Acanthocytes (Spur) ESR PT INR APTT D-Dimer High Sensitivty VBG pH 7.23 L VBG pCO2 36 VBG pO2 57 VBG HCO3 15 L VBG O2 Saturation 82.0 VBG Base Excess -11.1 Sodium Potassium Chloride Carbon Dioxide Anion Gap BUN Creatinine Estim Creat Clear Calc Estimated GFR POC Glucose 144 H Random Glucose Osmolality Lactic Acid Lactic Acid F/U @ 2Hr Lactic Acid F/U @ 4Hr Calcium Phosphorus Magnesium Total Bilirubin Direct Bilirubin AST ALT Alkaline Phosphatase Ammonia Lactate Dehydrogenase Troponin I High Sens C-Reactive Protein B-Natriuretic Peptide Total Protein Albumin Lipase TSH Urine Color Urine Appearance Urine pH Ur Specific [place] Urine Protein Urine Glucose (UA) Urine Ketones Urine Blood Urine Nitrite Ur Leukocyte Esterase Vancomycin Trough Salicylates Urine Opiates Screen Not Detected Urine Fentanyl Screen Not Detected Acetaminophen Ur Barbiturates Screen Not Detected Ur Phencyclidine Scrn Not Detected Ur Amphetamines Screen Not Detected U Benzodiazepines Scrn Not Detected Urine Cocaine Screen Not Detected U Marijuana (THC) Screen Not Detected COVID-19 ([facility]) COVID-19 Clin Com Hep Bs Antigen Hep Bs Antibody Hep B Core Total Ab Hepatitis C Ab (EIA) HIV 1&2 Ab/P24 Ag 4thGn Influenza Type A ([facility]) Influenza Type B ([facility]) Influenza A & B Note 01/03/23 01/03/23 01/03/23 04:11 04:12 04:12 WBC 51.3 H* RBC 2.93 L Hgb 9.6 L Hct 29.3 L MCV 100.0 H MCH 32.8 MCHC 32.8 RDW 19.2 H Plt Count 223 MPV 10.4 Immature Gran % (Auto) Cancelled Neut % (Auto) Cancelled Lymph % (Auto) Cancelled [place] % (Auto) Cancelled Eos % (Auto) Cancelled Baso % (Auto) Cancelled Lymph # (Auto) Cancelled [place] # (Auto) Cancelled Eos # (Auto) Cancelled Baso # (Auto) Cancelled Abs Immat Gran (auto) Cancelled Absolute Neuts (auto) Cancelled Absolute Nucleated RBC 0.180 H Nucleated RBC % (auto) 0.4 H Neutrophils % (Manual) 82 H Band Neutrophils % 16 H Monocytes % (Manual) 2 Abs Neuts (Manual) 50.3 H Monocytes # (Manual) 1.0 Dohle Bodies PRESENT Platelet Estimate NORMAL Large Platelets PRESENT Plt Morphology Comment NORMAL RBC Morphology NOTED Macrocytosis 1+ (5-14) Pappenheimer Bodies PRESENT Ovalocytes 1+ (5-14) [place] Cells 1+ (0-2) Acanthocytes (Spur) 1+ (0-2) ESR PT 19.7 H INR 1.7 H APTT 34.4 D-Dimer High Sensitivty 633 VBG pH VBG pCO2 VBG pO2 VBG HCO3 VBG O2 Saturation VBG Base Excess Sodium Potassium Chloride Carbon Dioxide Anion Gap BUN Creatinine Estim Creat Clear Calc Estimated GFR POC Glucose Random Glucose Osmolality Lactic Acid 5.1 H* Lactic Acid F/U @ 2Hr Lactic Acid F/U @ 4Hr Calcium Phosphorus Magnesium Total Bilirubin Direct Bilirubin AST ALT Alkaline Phosphatase Ammonia Lactate Dehydrogenase Troponin I High Sens C-Reactive Protein B-Natriuretic Peptide Total Protein Albumin Lipase TSH Urine Color Urine Appearance Urine pH Ur Specific [place] Urine Protein Urine Glucose (UA) Urine Ketones Urine Blood Urine Nitrite Ur Leukocyte Esterase Vancomycin Trough Salicylates Urine Opiates Screen Urine Fentanyl Screen Acetaminophen Ur Barbiturates Screen Ur Phencyclidine Scrn Ur Amphetamines Screen U Benzodiazepines Scrn Urine Cocaine Screen U Marijuana (THC) Screen COVID-19 ([facility]) COVID-19 Clin Com Hep Bs Antigen Hep Bs Antibody Hep B Core Total Ab Hepatitis C Ab (EIA) HIV 1&2 Ab/P24 Ag 4thGn Influenza Type A ([facility]) Influenza Type B ([facility]) Influenza A & B Note 01/03/23 01/03/23 01/03/23 04:12 04:12 04:14 WBC RBC Hgb Hct MCV MCH MCHC RDW Plt Count MPV Immature Gran % (Auto) Neut % (Auto) Lymph % (Auto) [place] % (Auto) Eos % (Auto) Baso % (Auto) Lymph # (Auto) [place] # (Auto) Eos # (Auto) Baso # (Auto) Abs Immat Gran (auto) Absolute Neuts (auto) Absolute Nucleated RBC Nucleated RBC % (auto) Neutrophils % (Manual) Band Neutrophils % Monocytes % (Manual) Abs Neuts (Manual) Monocytes # (Manual) Dohle Bodies Platelet Estimate Large Platelets Plt Morphology Comment RBC Morphology Macrocytosis Pappenheimer Bodies Ovalocytes [place] Cells Acanthocytes (Spur) ESR PT INR APTT D-Dimer High Sensitivty VBG pH VBG pCO2 VBG pO2 VBG HCO3 VBG O2 Saturation VBG Base Excess Sodium 136 Potassium 4.8 D Chloride 104 Carbon Dioxide 13 L Anion Gap 24 H BUN 31 H Creatinine 2.83 H Estim Creat Clear Calc 20.0 Estimated GFR 22 POC Glucose Random Glucose 195 H Osmolality Lactic Acid Lactic Acid F/U @ 2Hr Lactic Acid F/U @ 4Hr Calcium 8.0 L Phosphorus 6.5 H Magnesium 1.9 Total Bilirubin 5.5 H Direct Bilirubin AST 358 H ALT 384 H Alkaline Phosphatase 98 Ammonia Lactate Dehydrogenase 563 H Troponin I High Sens 146.4 H* D C-Reactive Protein 11.52 H B-Natriuretic Peptide 2141 H Total Protein 5.2 L Albumin 3.8 Lipase TSH Urine Color Urine Appearance Urine pH Ur Specific [place] Urine Protein Urine Glucose (UA) Urine Ketones Urine Blood Urine Nitrite Ur Leukocyte Esterase Vancomycin Trough Salicylates Urine Opiates Screen Urine Fentanyl Screen Acetaminophen Ur Barbiturates Screen Ur Phencyclidine Scrn Ur Amphetamines Screen U Benzodiazepines Scrn Urine Cocaine Screen U Marijuana (THC) Screen COVID-19 ([facility]) COVID-19 Clin Com Hep Bs Antigen Hep Bs Antibody Hep B Core Total Ab Hepatitis C Ab (EIA) HIV 1&2 Ab/P24 Ag 4thGn Influenza Type A ([facility]) Influenza Type B ([facility]) Influenza A & B Note 01/03/23 01/03/23 05:56 06:31 WBC RBC Hgb Hct MCV MCH MCHC RDW Plt Count MPV Immature Gran % (Auto) Neut % (Auto) Lymph % (Auto) [place] % (Auto) Eos % (Auto) Baso % (Auto) Lymph # (Auto) [place] # (Auto) Eos # (Auto) Baso # (Auto) Abs Immat Gran (auto) Absolute Neuts (auto) Absolute Nucleated RBC Nucleated RBC % (auto) Neutrophils % (Manual) Band Neutrophils % Monocytes % (Manual) Abs Neuts (Manual) Monocytes # (Manual) Dohle Bodies Platelet Estimate Large Platelets Plt Morphology Comment RBC Morphology Macrocytosis Pappenheimer Bodies Ovalocytes [place] Cells Acanthocytes (Spur) ESR PT INR APTT D-Dimer High Sensitivty VBG pH VBG pCO2 VBG pO2 VBG HCO3 VBG O2 Saturation VBG Base Excess Sodium Potassium Chloride Carbon Dioxide Anion Gap BUN Creatinine Estim Creat Clear Calc Estimated GFR POC Glucose 239 H Random Glucose Osmolality Lactic Acid Lactic Acid F/U @ 2Hr 4.7 H* Lactic Acid F/U @ 4Hr Calcium Phosphorus Magnesium Total Bilirubin Direct Bilirubin AST ALT Alkaline Phosphatase Ammonia Lactate Dehydrogenase Troponin I High Sens C-Reactive Protein B-Natriuretic Peptide Total Protein Albumin Lipase TSH Urine Color Urine Appearance Urine pH Ur Specific [place] Urine Protein Urine Glucose (UA) Urine Ketones Urine Blood Urine Nitrite Ur Leukocyte Esterase Vancomycin Trough Salicylates Urine Opiates Screen Urine Fentanyl Screen Acetaminophen Ur Barbiturates Screen Ur Phencyclidine Scrn Ur Amphetamines Screen U Benzodiazepines Scrn Urine Cocaine Screen U Marijuana (THC) Screen COVID-19 ([facility]) COVID-19 Clin Com Hep Bs Antigen Hep Bs Antibody Hep B Core Total Ab Hepatitis C Ab (EIA) HIV 1&2 Ab/P24 Ag 4thGn Influenza Type A ([facility]) Influenza Type B ([facility]) Influenza A & B Note Microbiology Microbiology Results: Microbiology 01/02/23 17:00 Blood - Venous Blood Culture - Preliminary Prelim: GPC Gram Stain only Progress Note: A&P Assessment and plan (1) Ischemic dilated cardiomyopathy: Status: Acute (2) Apical myocardial infarction: Status: Acute (3) ATN (acute tubular necrosis): Status: Acute (4) Acute cholecystitis: Status: Acute Plan so the plan now is to stop vancomycin and just continue meropenem and will also stop doxycycline support him right now on the combined vasopressin and Levophed and with the current CVP averaging about 8-9 will continue to hold off on fluids and he is going to go for a percutaneous cholecystostomy drain unequivocally for source control he needs a cholecystostomy tube as he is a very poor an exceedingly high risk surgical candidate given the multiple system failure and comorbidities Quality Stroke Does the patient have a stroke diagnosis?: No VTE Prior VTE?: No VTE Risk Level:: Medical - moderate - high VTE Device Contraindication: N/A - Device Ordered VTE Drug Contraindication: N/A - Med Ordered
[2023-01-03 08:34] LABS: Reflex Lactate? 2 Y
[2023-01-03 08:48] LABS: Glucose, Whole Blood 61 mg/dL (60-115)
[2023-01-03 08:52] LABS: Lipase 8 U/L (8-78)
[2023-01-03 09:11] LABS: ~Lactic Acid-LAB USE ONLY 5.8 mmol/L (0.5-2.0)
[2023-01-03 09:40] LABS: Adenovirus PCR Not Detected (Not Detect.); Bordetella parapertussis PCR Not Detected (Not Detect.); Bordetella pertussis PCR Not Detected (Not Detect.); Chlamydia pneumoniae PCR Not Detected (Not Detect.); Coronavirus 229E PCR Not Detected (Not Detect.); Coronavirus HKU1 PCR Not Detected (Not Detect.); Coronavirus NL63 PCR Not Detected (Not Detect.); Coronavirus OC43 PCR Not Detected (Not Detect.); SARS-CoV-2 PCR Not Detected (Not Detect.)
[2023-01-03 09:41] LABS: Human metapneumovirus PCR Not Detected (Not Detect.); Influenza A PCR Not Detected (Not Detect.); Influenza B PCR Not Detected (Not Detect.); Mycoplasma pneumoniae PCR Not Detected (Not Detect.); Parainfluenza 1 PCR Not Detected (Not Detect.); Parainfluenza 2 PCR Not Detected (Not Detect.); Parainfluenza 3 PCR Not Detected (Not Detect.); Parainfluenza 4 PCR Not Detected (Not Detect.); RSV PCR Not Detected (Not Detect.); Rhino/Enterovirus PCR Not Detected (Not Detect.)
--- NOTE | 2023-01-03 10:06 | MHC.CM.PN ---
Addendum entered by Katharine Maza 01/03/23 11:48: REFERRAL SENT TO [facility] PER FAMILY REQUEST. Original Note: IMM EXPLAINED OVER THE PHONE TO HCP/SON YANIRA BELL. WHITE COPY TO BE MAILED, YELLOW COPY TO CHART. PER SON, PT LIVES WITH HE AND HIS IN A [facility]. INDEPENDENT AT BASELINE BUT DOES HAVE A VNA THAT COMES IN, SON WILL GET BACK TO THIS WITH THE NAME OF THE AGENCY. PT GETS MOW . +COVID VAX BUT SON UNABLE TO RECALL HOW MANY. + HCP, SON BELIEVES THERE IS A COPY ON FILE BUT HAS A COPY HE CAN BRING IN. PCP DR. OROPEZA AT [facility]. DP: WILL AWAIT PT REC., ONCE SON GETS BACK TO CM WITH NAME OF VNA, A RETURN REFERRAL WILL BE SENT.
--- NOTE | 2023-01-03 10:29 | P.CONGS_ITS ---
History of Present Illness Consult details Consult date: 01/03/23 Requesting physician: Ronaldo Thompson Narrative: Patient is a 77-year-old elderly frail debilitated man who presents here with sepsis. He underwent an extensive workup which included CT scan of the abdomen and sonogram of the abdomen demonstrating a markedly edematous gallbladder with pericholecystic edema, sludge, and cholelithiasis. Patient has a plethora of intercurrent medical problems including coronary disease, COPD, please refer to history for remaining issues. Chart was reviewed, and patient evaluated. Patient has very marked leukocytosis as well as elevation of his liver function tests. Exam this morning, patient is in moderate respiratory distress. He is undergoing restorative measures. Abdominal exam is most noteworthy for moderately distended abdomen with marked right upper quadrant tenderness. No evidence of rebound or rigidity. Because of the patient's current tenuous state, he is a very suboptimal surgical candidate. I discussed this with the the check out cashier,Dr. Thompson, and we both went to Interventional Radiology to arrange for a percutaneous cholecystostomy tube placement as a temporizing possible permanent measure for this patient with acute cholecystitis. Further interventions and studies will be directed by the patient's clinical course status post percutaneous cholecystostomy tube placement. [facility] Past Medical History Medical History CAD (coronary artery disease) COPD (chronic obstructive pulmonary disease) Dyspnea on effort Exercise hypoxemia Pedal edema Post covid-19 condition, unspecified Functional capacity: uses cane/walker (per patient report) Family History Family History Father CVD (cardiovascular disease) Mother No problems noted. Surgical History Surgical History Hx of cardiac cath Hx of cataract removal with insertion of prosthetic lens Social History Social History Household Members: None Housing: Apartment Do you presently have visiting nurse or other home services: Yes Unable to assess alcohol history related to: Unable to respond Alcohol intake: unknown Patient Tobacco Use Status: Former Tobacco user Tobacco use type: Cigarette Smoked in Last 30 Days: No e-Cigarette/Vaping Use: Never Used Second Hand Smoke Exposure: No Use of substances other than those prescribed or required for medical reasons: Unable to respond Advance Directives: No Advance Directives Information Provided: No Do you have thoughts of harming others: None Do you have a plan to hurt others: No Plan Recently lost weight without trying: No Nutrition Risks: No Nutritional Risk service: Yes Current occupational status: retired Meds Allergies Allergy/AdvReac Type Severity Reaction Status Date / Time No Known Allergies Allergy Verified 12/05/22 10:28 [No Known Allergies*] Active Medications: Current Medications Albuterol Sulfate (Albuterol Sulfate 90 Mcg 8 Gm Inhaler) 2 puff INHALE Q6H PRN PRN Reason: Wheezing Albuterol/Ipratropium (Albuterol/Iprat 2.5/0.5mg 3 Ml Ampul.Neb) 3 ml INHALE QID PRN PRN Reason: for wheezing Last Admin: 01/03/23 07:58 Dose: 3 ml Norepinephrine Bitartrate (Levophed) 8 mg in 250 mls @ 0 mls/hr IV .Q0M [facility]; Protocol Last Admin: 01/03/23 09:53 Dose: 0.88 mcg/kg/min, 112.26 mls/hr Vasopressin (Vasostrict) 20 unit in 100 mls @ 12 mls/hr IV .Q8H20M [facility] Last Admin: 01/03/23 05:22 Dose: 0.04 unit/min, 12 mls/hr Pharmacy Consult (Consult Rx Perform Med Rec) 1 each MISCELLANE ONCE PRN PRN Reason: Consult order Home Medications Medication Instructions Recorded Confirmed Last Taken Type albuterol sulfate 90 mcg/actuation 2 puff inhalation Q6H PRN Wheezing 03/17/21 01/02/23 10/22/22 History aerosol inhaler (ProAir HFA) aspirin 81 mg tablet,delayed 81 mg PO DAILY 05/16/22 01/02/23 10/22/22 History release hydrochlorothiazide 25 mg tablet 25 mg PO DAILY 01/02/23 01/02/23 Unknown History Physical Exam Vital Signs: Vital Signs: Last Vital Signs Temp 99.1 F 01/03/23 10:00 Pulse 120 H 01/03/23 10:00 Resp 31 H 01/03/23 10:00 BP 135/63 01/03/23 10:00 Pulse Ox 99 01/03/23 10:00 O2 Del Method 01/03/23 10:00 O2 Flow Rate 50 01/03/23 04:00 FiO2 50 01/03/23 10:00 BMI result Body Mass Index 24.2 Results Labs 01/03/23 04:12 01/03/23 04:12 Labs: Abnormal lab results 01/02/23 01/02/23 01/02/23 Range/Units 17:02 17:02 17:02 WBC 58.5 H* (4.8-10.8) X10*3/uL RBC 2.99 L (4.60-5.80) X10*6/uL Hgb 10.0 L (14.0-18.0) g/dl Hct 30.0 L (42.0-52.0) % MCV 100.3 H (80.0-98.0) fL MCH 33.4 H (27.0-33.0) pg RDW 19.5 H (11.0-16.0) % Immature Gran % (Auto) 3.3 H (0.0-0.4) % Neut % (Auto) 92.4 H (45-73) % Lymph % (Auto) 2.1 L (20-40) % [place] % (Auto) 1.8 L (2-11) % Abs Immat Gran (auto) 1.95 H (0.00-0.03) X10*3/uL Absolute Neuts (auto) 54.1 H (2.0-8.3) x10*3/uL Absolute Nucleated RBC 0.200 H (0.0-0.012) X10*3/uL Nucleated RBC % (auto) 0.3 H (0.0-0.2) /100WBC Neutrophils % (Manual) (45-73) % Band Neutrophils % (3-5) % Abs Neuts (Manual) (2.0-8.3) X10*3/uL PT 14.2 H (10.0-13.1) SEC INR 1.2 H (0.9-1.1) VBG pH (7.32-7.43) VBG HCO3 (22-26) mmol/L Carbon Dioxide 17 L (22-29) mmol/L Anion Gap (12-20) BUN 26 H (9-16) mg/dL Creatinine 2.26 H (0.5-1.4) mg/dL POC Glucose (60-115) mg/dL Random Glucose 199 H (60-115) mg/dL Lactic Acid (0.5-2.0) mmol/L Lactic Acid F/U @ 2Hr (0.5-2.0) mmol/L Lactic Acid F/U @ 4Hr (0.5-2.0) mmol/L Calcium 8.3 L D (8.4-10.2) mg/dL Phosphorus (2.7-4.5) mg/dL Magnesium 1.4 L* (1.6-2.6) mg/dL Total Bilirubin 4.6 H (0.0-1.0) mg/dL Direct Bilirubin 3.1 H (0.0-0.5) mg/dL AST 282 H (5-37) U/L ALT 285 H (0-40) U/L Alkaline Phosphatase 126 H (39-117) U/L Lactate Dehydrogenase (118-273) U/L Troponin I High Sens (<3.5-35.0) ng/L C-Reactive Protein (< or = 0.50) mg/dL B-Natriuretic Peptide (<100) pg/mL Total Protein 4.4 L (6.5-8.0) g/dL Albumin 2.7 L (3.5-5.0) g/dL Vancomycin Trough (10.0-20.0) mcg/mL Salicylates (15-30) mg/dL 01/02/23 01/02/23 01/02/23 Range/Units 17:02 17:02 17:02 WBC (4.8-10.8) X10*3/uL RBC (4.60-5.80) X10*6/uL Hgb (14.0-18.0) g/dl Hct (42.0-52.0) % MCV (80.0-98.0) fL MCH (27.0-33.0) pg RDW (11.0-16.0) % Immature Gran % (Auto) (0.0-0.4) % Neut % (Auto) (45-73) % Lymph % (Auto) (20-40) % [place] % (Auto) (2-11) % Abs Immat Gran (auto) (0.00-0.03) X10*3/uL Absolute Neuts (auto) (2.0-8.3) x10*3/uL Absolute Nucleated RBC (0.0-0.012) X10*3/uL Nucleated RBC % (auto) (0.0-0.2) /100WBC Neutrophils % (Manual) (45-73) % Band Neutrophils % (3-5) % Abs Neuts (Manual) (2.0-8.3) X10*3/uL PT (10.0-13.1) SEC INR (0.9-1.1) VBG pH (7.32-7.43) VBG HCO3 (22-26) mmol/L Carbon Dioxide (22-29) mmol/L Anion Gap (12-20) BUN (9-16) mg/dL Creatinine (0.5-1.4) mg/dL POC Glucose (60-115) mg/dL Random Glucose (60-115) mg/dL Lactic Acid 8.0 H* (0.5-2.0) mmol/L Lactic Acid F/U @ 2Hr (0.5-2.0) mmol/L Lactic Acid F/U @ 4Hr (0.5-2.0) mmol/L Calcium (8.4-10.2) mg/dL Phosphorus (2.7-4.5) mg/dL Magnesium (1.6-2.6) mg/dL Total Bilirubin (0.0-1.0) mg/dL Direct Bilirubin (0.0-0.5) mg/dL AST (5-37) U/L ALT (0-40) U/L Alkaline Phosphatase (39-117) U/L Lactate Dehydrogenase (118-273) U/L Troponin I High Sens 49.3 H (<3.5-35.0) ng/L C-Reactive Protein (< or = 0.50) mg/dL B-Natriuretic Peptide 641 H (<100) pg/mL Total Protein (6.5-8.0) g/dL Albumin (3.5-5.0) g/dL Vancomycin Trough (10.0-20.0) mcg/mL Salicylates (15-30) mg/dL 02/14/23 02/14/23 02/14/23 Range/Units 17:11 19:31 22:16 WBC (4.8-10.8) X10*3/uL RBC (4.60-5.80) X10*6/uL Hgb (14.0-18.0) g/dl Hct (42.0-52.0) % MCV (80.0-98.0) fL MCH (27.0-33.0) pg RDW (11.0-16.0) % Immature Gran % (Auto) (0.0-0.4) % Neut % (Auto) (45-73) % Lymph % (Auto) (20-40) % [place] % (Auto) (2-11) % Abs Immat Gran (auto) (0.00-0.03) X10*3/uL Absolute Neuts (auto) (2.0-8.3) x10*3/uL Absolute Nucleated RBC (0.0-0.012) X10*3/uL Nucleated RBC % (auto) (0.0-0.2) /100WBC Neutrophils % (Manual) (45-73) % Band Neutrophils % (3-5) % Abs Neuts (Manual) (2.0-8.3) X10*3/uL PT (10.0-13.1) SEC INR (0.9-1.1) VBG pH 7.23 L (7.32-7.43) VBG HCO3 21 L (22-26) mmol/L Carbon Dioxide (22-29) mmol/L Anion Gap (12-20) BUN (9-16) mg/dL Creatinine (0.5-1.4) mg/dL POC Glucose (60-115) mg/dL Random Glucose (60-115) mg/dL Lactic Acid (0.5-2.0) mmol/L Lactic Acid F/U @ 2Hr 3.9 H* (0.5-2.0) mmol/L Lactic Acid F/U @ 4Hr (0.5-2.0) mmol/L Calcium (8.4-10.2) mg/dL Phosphorus (2.7-4.5) mg/dL Magnesium (1.6-2.6) mg/dL Total Bilirubin (0.0-1.0) mg/dL Direct Bilirubin (0.0-0.5) mg/dL AST (5-37) U/L ALT (0-40) U/L Alkaline Phosphatase (39-117) U/L Lactate Dehydrogenase (118-273) U/L Troponin I High Sens 69.9 H (<3.5-35.0) ng/L C-Reactive Protein (< or = 0.50) mg/dL B-Natriuretic Peptide (<100) pg/mL Total Protein (6.5-8.0) g/dL Albumin (3.5-5.0) g/dL Vancomycin Trough (10.0-20.0) mcg/mL Salicylates (15-30) mg/dL 01/02/23 01/02/23 01/02/23 Range/Units 22:16 22:16 22:16 WBC (4.8-10.8) X10*3/uL RBC (4.60-5.80) X10*6/uL Hgb (14.0-18.0) g/dl Hct (42.0-52.0) % MCV (80.0-98.0) fL MCH (27.0-33.0) pg RDW (11.0-16.0) % Immature Gran % (Auto) (0.0-0.4) % Neut % (Auto) (45-73) % Lymph % (Auto) (20-40) % [place] % (Auto) (2-11) % Abs Immat Gran (auto) (0.00-0.03) X10*3/uL Absolute Neuts (auto) (2.0-8.3) x10*3/uL Absolute Nucleated RBC (0.0-0.012) X10*3/uL Nucleated RBC % (auto) (0.0-0.2) /100WBC Neutrophils % (Manual) (45-73) % Band Neutrophils % (3-5) % Abs Neuts (Manual) (2.0-8.3) X10*3/uL PT (10.0-13.1) SEC INR (0.9-1.1) VBG pH (7.32-7.43) VBG HCO3 (22-26) mmol/L Carbon Dioxide (22-29) mmol/L Anion Gap (12-20) BUN (9-16) mg/dL Creatinine (0.5-1.4) mg/dL POC Glucose (60-115) mg/dL Random Glucose (60-115) mg/dL Lactic Acid (0.5-2.0) mmol/L Lactic Acid F/U @ 2Hr (0.5-2.0) mmol/L Lactic Acid F/U @ 4Hr 5.3 H* (0.5-2.0) mmol/L Calcium (8.4-10.2) mg/dL Phosphorus (2.7-4.5) mg/dL Magnesium (1.6-2.6) mg/dL Total Bilirubin (0.0-1.0) mg/dL Direct Bilirubin (0.0-0.5) mg/dL AST (5-37) U/L ALT (0-40) U/L Alkaline Phosphatase (39-117) U/L Lactate Dehydrogenase (118-273) U/L Troponin I High Sens (<3.5-35.0) ng/L C-Reactive Protein 11.55 H (< or = 0.50) mg/dL B-Natriuretic Peptide 1108 H (<100) pg/mL Total Protein (6.5-8.0) g/dL Albumin (3.5-5.0) g/dL Vancomycin Trough (10.0-20.0) mcg/mL Salicylates < 5.0 L (15-30) mg/dL 01/02/23 01/02/23 01/03/23 Range/Units 22:19 23:42 00:32 WBC (4.8-10.8) X10*3/uL RBC (4.60-5.80) X10*6/uL Hgb (14.0-18.0) g/dl Hct (42.0-52.0) % MCV (80.0-98.0) fL MCH (27.0-33.0) pg RDW (11.0-16.0) % Immature Gran % (Auto) (0.0-0.4) % Neut % (Auto) (45-73) % Lymph % (Auto) (20-40) % [place] % (Auto) (2-11) % Abs Immat Gran (auto) (0.00-0.03) X10*3/uL Absolute Neuts (auto) (2.0-8.3) x10*3/uL Absolute Nucleated RBC (0.0-0.012) X10*3/uL Nucleated RBC % (auto) (0.0-0.2) /100WBC Neutrophils % (Manual) (45-73) % Band Neutrophils % (3-5) % Abs Neuts (Manual) (2.0-8.3) X10*3/uL PT (10.0-13.1) SEC INR (0.9-1.1) VBG pH 7.27 L (7.32-7.43) VBG HCO3 19 L (22-26) mmol/L Carbon Dioxide (22-29) mmol/L Anion Gap (12-20) BUN (9-16) mg/dL Creatinine (0.5-1.4) mg/dL POC Glucose 144 H (60-115) mg/dL Random Glucose (60-115) mg/dL Lactic Acid (0.5-2.0) mmol/L Lactic Acid F/U @ 2Hr (0.5-2.0) mmol/L Lactic Acid F/U @ 4Hr (0.5-2.0) mmol/L Calcium (8.4-10.2) mg/dL Phosphorus (2.7-4.5) mg/dL Magnesium (1.6-2.6) mg/dL Total Bilirubin (0.0-1.0) mg/dL Direct Bilirubin (0.0-0.5) mg/dL AST (5-37) U/L ALT (0-40) U/L Alkaline Phosphatase (39-117) U/L Lactate Dehydrogenase (118-273) U/L Troponin I High Sens (<3.5-35.0) ng/L C-Reactive Protein (< or = 0.50) mg/dL B-Natriuretic Peptide (<100) pg/mL Total Protein (6.5-8.0) g/dL Albumin (3.5-5.0) g/dL Vancomycin Trough < 2.0 L (10.0-20.0) mcg/mL Salicylates (15-30) mg/dL 01/03/23 01/03/23 01/03/23 Range/Units 04:06 04:11 04:12 WBC 51.3 H* (4.8-10.8) X10*3/uL RBC 2.93 L (4.60-5.80) X10*6/uL Hgb 9.6 L (14.0-18.0) g/dl Hct 29.3 L (42.0-52.0) % MCV 100.0 H (80.0-98.0) fL MCH (27.0-33.0) pg RDW 19.2 H (11.0-16.0) % Immature Gran % (Auto) (0.0-0.4) % Neut % (Auto) (45-73) % Lymph % (Auto) (20-40) % [place] % (Auto) (2-11) % Abs Immat Gran (auto) (0.00-0.03) X10*3/uL Absolute Neuts (auto) (2.0-8.3) x10*3/uL Absolute Nucleated RBC 0.180 H (0.0-0.012) X10*3/uL Nucleated RBC % (auto) 0.4 H (0.0-0.2) /100WBC Neutrophils % (Manual) 82 H (45-73) % Band Neutrophils % 16 H (3-5) % Abs Neuts (Manual) 50.3 H (2.0-8.3) X10*3/uL PT (10.0-13.1) SEC INR (0.9-1.1) VBG pH 7.23 L (7.32-7.43) VBG HCO3 15 L (22-26) mmol/L Carbon Dioxide (22-29) mmol/L Anion Gap (12-20) BUN (9-16) mg/dL Creatinine (0.5-1.4) mg/dL POC Glucose (60-115) mg/dL Random Glucose (60-115) mg/dL Lactic Acid 5.1 H* (0.5-2.0) mmol/L Lactic Acid F/U @ 2Hr (0.5-2.0) mmol/L Lactic Acid F/U @ 4Hr (0.5-2.0) mmol/L Calcium (8.4-10.2) mg/dL Phosphorus (2.7-4.5) mg/dL Magnesium (1.6-2.6) mg/dL Total Bilirubin (0.0-1.0) mg/dL Direct Bilirubin (0.0-0.5) mg/dL AST (5-37) U/L ALT (0-40) U/L Alkaline Phosphatase (39-117) U/L Lactate Dehydrogenase (118-273) U/L Troponin I High Sens (<3.5-35.0) ng/L C-Reactive Protein (< or = 0.50) mg/dL B-Natriuretic Peptide (<100) pg/mL Total Protein (6.5-8.0) g/dL Albumin (3.5-5.0) g/dL Vancomycin Trough (10.0-20.0) mcg/mL Salicylates (15-30) mg/dL 01/03/23 01/03/23 01/03/23 Range/Units 04:12 04:12 04:12 WBC (4.8-10.8) X10*3/uL RBC (4.60-5.80) X10*6/uL Hgb (14.0-18.0) g/dl Hct (42.0-52.0) % MCV (80.0-98.0) fL MCH (27.0-33.0) pg RDW (11.0-16.0) % Immature Gran % (Auto) (0.0-0.4) % Neut % (Auto) (45-73) % Lymph % (Auto) (20-40) % [place] % (Auto) (2-11) % Abs Immat Gran (auto) (0.00-0.03) X10*3/uL Absolute Neuts (auto) (2.0-8.3) x10*3/uL Absolute Nucleated RBC (0.0-0.012) X10*3/uL Nucleated RBC % (auto) (0.0-0.2) /100WBC Neutrophils % (Manual) (45-73) % Band Neutrophils % (3-5) % Abs Neuts (Manual) (2.0-8.3) X10*3/uL PT 19.7 H (10.0-13.1) SEC INR 1.7 H (0.9-1.1) VBG pH (7.32-7.43) VBG HCO3 (22-26) mmol/L Carbon Dioxide 13 L (22-29) mmol/L Anion Gap 24 H (12-20) BUN 31 H (9-16) mg/dL Creatinine 2.83 H (0.5-1.4) mg/dL POC Glucose (60-115) mg/dL Random Glucose 195 H (60-115) mg/dL Lactic Acid (0.5-2.0) mmol/L Lactic Acid F/U @ 2Hr (0.5-2.0) mmol/L Lactic Acid F/U @ 4Hr (0.5-2.0) mmol/L Calcium 8.0 L (8.4-10.2) mg/dL Phosphorus 6.5 H (2.7-4.5) mg/dL Magnesium (1.6-2.6) mg/dL Total Bilirubin 5.5 H (0.0-1.0) mg/dL Direct Bilirubin (0.0-0.5) mg/dL AST 358 H (5-37) U/L ALT 384 H (0-40) U/L Alkaline Phosphatase (39-117) U/L Lactate Dehydrogenase 563 H (118-273) U/L Troponin I High Sens (<3.5-35.0) ng/L C-Reactive Protein 11.52 H (< or = 0.50) mg/dL B-Natriuretic Peptide 2141 H (<100) pg/mL Total Protein 5.2 L (6.5-8.0) g/dL Albumin (3.5-5.0) g/dL Vancomycin Trough (10.0-20.0) mcg/mL Salicylates (15-30) mg/dL 01/03/23 01/03/23 01/03/23 Range/Units 04:14 05:56 06:31 WBC (4.8-10.8) X10*3/uL RBC (4.60-5.80) X10*6/uL Hgb (14.0-18.0) g/dl Hct (42.0-52.0) % MCV (80.0-98.0) fL MCH (27.0-33.0) pg RDW (11.0-16.0) % Immature Gran % (Auto) (0.0-0.4) % Neut % (Auto) (45-73) % Lymph % (Auto) (20-40) % [place] % (Auto) (2-11) % Abs Immat Gran (auto) (0.00-0.03) X10*3/uL Absolute Neuts (auto) (2.0-8.3) x10*3/uL Absolute Nucleated RBC (0.0-0.012) X10*3/uL Nucleated RBC % (auto) (0.0-0.2) /100WBC Neutrophils % (Manual) (45-73) % Band Neutrophils % (3-5) % Abs Neuts (Manual) (2.0-8.3) X10*3/uL PT (10.0-13.1) SEC INR (0.9-1.1) VBG pH (7.32-7.43) VBG HCO3 (22-26) mmol/L Carbon Dioxide (22-29) mmol/L Anion Gap (12-20) BUN (9-16) mg/dL Creatinine (0.5-1.4) mg/dL POC Glucose 239 H (60-115) mg/dL Random Glucose (60-115) mg/dL Lactic Acid (0.5-2.0) mmol/L Lactic Acid F/U @ 2Hr 4.7 H* (0.5-2.0) mmol/L Lactic Acid F/U @ 4Hr (0.5-2.0) mmol/L Calcium (8.4-10.2) mg/dL Phosphorus (2.7-4.5) mg/dL Magnesium (1.6-2.6) mg/dL Total Bilirubin (0.0-1.0) mg/dL Direct Bilirubin (0.0-0.5) mg/dL AST (5-37) U/L ALT (0-40) U/L Alkaline Phosphatase (39-117) U/L Lactate Dehydrogenase (118-273) U/L Troponin I High Sens 146.4 H* D (<3.5-35.0) ng/L C-Reactive Protein (< or = 0.50) mg/dL B-Natriuretic Peptide (<100) pg/mL Total Protein (6.5-8.0) g/dL Albumin (3.5-5.0) g/dL Vancomycin Trough (10.0-20.0) mcg/mL Salicylates (15-30) mg/dL 01/03/23 Range/Units 08:46 WBC (4.8-10.8) X10*3/uL RBC (4.60-5.80) X10*6/uL Hgb (14.0-18.0) g/dl Hct (42.0-52.0) % MCV (80.0-98.0) fL MCH (27.0-33.0) pg RDW (11.0-16.0) % Immature Gran % (Auto) (0.0-0.4) % Neut % (Auto) (45-73) % Lymph % (Auto) (20-40) % [place] % (Auto) (2-11) % Abs Immat Gran (auto) (0.00-0.03) X10*3/uL Absolute Neuts (auto) (2.0-8.3) x10*3/uL Absolute Nucleated RBC (0.0-0.012) X10*3/uL Nucleated RBC % (auto) (0.0-0.2) /100WBC Neutrophils % (Manual) (45-73) % Band Neutrophils % (3-5) % Abs Neuts (Manual) (2.0-8.3) X10*3/uL PT (10.0-13.1) SEC INR (0.9-1.1) VBG pH (7.32-7.43) VBG HCO3 (22-26) mmol/L Carbon Dioxide (22-29) mmol/L Anion Gap (12-20) BUN (9-16) mg/dL Creatinine (0.5-1.4) mg/dL POC Glucose (60-115) mg/dL Random Glucose (60-115) mg/dL Lactic Acid (0.5-2.0) mmol/L Lactic Acid F/U @ 2Hr (0.5-2.0) mmol/L Lactic Acid F/U @ 4Hr 5.8 H* (0.5-2.0) mmol/L Calcium (8.4-10.2) mg/dL Phosphorus (2.7-4.5) mg/dL Magnesium (1.6-2.6) mg/dL Total Bilirubin (0.0-1.0) mg/dL Direct Bilirubin (0.0-0.5) mg/dL AST (5-37) U/L ALT (0-40) U/L Alkaline Phosphatase (39-117) U/L Lactate Dehydrogenase (118-273) U/L Troponin I High Sens (<3.5-35.0) ng/L C-Reactive Protein (< or = 0.50) mg/dL B-Natriuretic Peptide (<100) pg/mL Total Protein (6.5-8.0) g/dL Albumin (3.5-5.0) g/dL Vancomycin Trough (10.0-20.0) mcg/mL Salicylates (15-30) mg/dL Short CBC 01/02/23 01/03/23 Range/Units 17:02 04:12 WBC 58.5 H* 51.3 H* (4.8-10.8) X10*3/uL Hgb 10.0 L 9.6 L (14.0-18.0) g/dl Hct 30.0 L 29.3 L (42.0-52.0) % Plt Count 244 D 223 (160-400) X10*3/uL BMP 01/02/23 01/03/23 17:02 04:12 Sodium 138 136 Potassium 3.9 4.8 D Chloride 105 104 Carbon Dioxide 17 L 13 L BUN 26 H 31 H Creatinine 2.26 H 2.83 H Calcium 8.3 L D 8.0 L Liver Function 01/02/23 01/03/23 Range/Units 17:02 04:12 Total Bilirubin 4.6 H 5.5 H (0.0-1.0) mg/dL Direct Bilirubin 3.1 H (0.0-0.5) mg/dL AST 282 H 358 H (5-37) U/L ALT 285 H 384 H (0-40) U/L Alkaline Phosphatase 126 H 98 (39-117) U/L Albumin 2.7 L 3.8 (3.5-5.0) g/dL Urine 01/02/23 Range/Units 17:46 Urine Color Dark Yellow Urine Appearance Clear Urine pH 8.0 (5.0-9.0) Ur Specific [place] 1.015 (1.005-1.025) Urine Protein Negative (Neg-Trace) mg/dL Urine Glucose (UA) Negative (Negative) mg/dL All other labs normal. Assessment and Plan Time Spent With Patient Time: Total time managing care of this patient today ____ minutes. Procedures Date of Service Date of Service: 01/03/23
[2023-01-03] MEDS: fentaNYL citrate/PF 100 MCG/2 ML VIAL 50 MCG IVPUSH (10:59)
[2023-01-03] MEDS: Midazolam HCl/PF 2 MG/2 ML VIAL 3 MG IVPUSH (11:07)
[2023-01-03] MEDS: Rocuronium Bromide 50 MG/5 ML VIAL 35 MG IVPUSH (11:08)
[2023-01-03] MEDS: fentaNYL citrate/NS 1,000 MCG/100 ML PLAST..BAG 5 MCG IVCONT (11:11)
[2023-01-03] MEDS: Midazolam HCl/NS 50 MG/50 ML PLAST..BAG IVCONT (11:11)
--- NOTE | 2023-01-03 11:31 | W.PM.CCHP ---
Procedures Date of Service Date of Service: 01/03/23 Intubation Intubation Comments: due to progressive ARDS or his work of breathing on the noninvasive ventilator was climbing and he was becoming agitated oxygen saturations now dropping below 80% so after explaining to the patient utilizing a 7.5 endotracheal tube and 3 mg of IV Versed and 50 mcg of IV fentanyl and 35 mg of rocuronium very easy intubation was performed without complication with excellent end-tidal CO2 response and then under guidance from the glide scope I also was able to easily pass his OG tube placement in the stay is stomach clinically and confirmation of both the OG tube being in the stomach and the endotracheal tube being 2.5 cm above the walt were confirmed Consent for Procedure: Elective - informed consent obtained Time out performed: Yes Sedative: versed Mg given: 3 Paralytic: rocuronium Mg given: 35 Laryngoscope: fiber optic video scope ET tube size: 7.5 ET tube uncuffed: No Tube secured depth (cm): 25 Tube secured location: lips Tube placement confirmation: visualized tube passing through cords, equal breath sounds bilaterally, no breath sounds over epigastrium and confirmation by capnometry Patient tolerated procedure: well and no complications Intubation complications: none
[2023-01-03] MEDS: Norepinephrine Bitartrate/D5W 8 MG/250 ML PLAST..BAG 108.44 MG IV (11:56)
[2023-01-03 12:19] LABS: Glucose, Whole Blood 212 mg/dL (60-115)
--- NOTE | 2023-01-03 13:12 | PC.NURSE ---
Assumed care at 0700. Patient presenting AOx4, HR 100s, RR 20s-30s, O2 sat low 90s on Bipap 12/5 50%. Patient visibly abdominal breathing, c/o SOB. Patient SBPs 90-120, MAP >60 with vasopressin running and Levophed titrated per EMAR. Patient's abdomen distended, round, and tender. Faint hypoactive bowel sounds auscultated. MD notified and at bedside to assess. Abdominal XRAY, abdominal US, and Echo obtained- see reports. 1030- Patient c/o increasing SOB stating I can't breathe , O2 sats sustaining 85-92%, abdominal breathing increasing, RR sustaining 30s. Patient becoming increasingly agitated, pulling off bipap mask. HR sustaining 120s. MD and RT called to bedside. Patient intubated at 1110 by MD, ETT 7.5 25cm at the lip. IVP versed, IVP fentanyl, and IVP rocuronium given prior to intubation. Versed and fentanyl gtts started per EMAR. OGT placed by MD. CXR obtained confirming ETT and OGT Placement. Patient tolerating vent settings AC 16/390/5/50%. 1300- Absent cough, gag, and pain response. Patient RR sustaining 16, MAPs >60, O2 sat 94-100%, HR sustaining 80s. Patient core temp 100.2- MD aware. Prevalon system in place, repositioning and oral care Q2 hours. Patient scheduled for CT guided drain placement at 1430-RT notified. WCTM.
[2023-01-03] MEDS: Norepinephrine Bitartrate/D5W 8 MG/250 ML PLAST..BAG 113.54 MG IV (14:14)
[2023-01-03] MEDS: Norepinephrine Bitartrate/D5W 8 MG/250 ML PLAST..BAG 126.3 MG IV (16:20)
--- NOTE | 2023-01-03 18:16 | P.DS_ITS ---
DS: Providers Provider Date of Service: 01/03/23 Date of admission: 01/02/23 20:56 Primary care physician: Marty Cassidy MD Consults: 01/03/23 08:37 Consult to General Surgery Stat Consulting Provider: Karl Bush Reason for consultation: acute cholecystitis Has provider been notified: Yes DS: Diagnosis Discharge Diagnosis (1) Ischemic dilated cardiomyopathy: Status: Acute (2) Apical myocardial infarction: Status: Acute (3) ATN (acute tubular necrosis): Status: Acute (4) Acute cholecystitis: Status: Acute (5) Cardiogenic shock: Status: Acute (6) Hypomagnesemia: Status: Acute (7) Elevated troponin: Status: Acute (8) Elevated brain natriuretic peptide (BNP) level: Status: Acute (9) ROSEANN (acute kidney injury): Status: Acute (10) Transaminasemia: Status: Acute (11) CAP (community acquired pneumonia): Status: Acute (12) Pedal edema: Status: Acute (13) Respiratory failure: Status: Acute (14) Severe sepsis: Status: Acute (15) Lactic acidosis: Status: Acute (16) Leukocytosis: Status: Acute (17) Lymphopenia: Status: Acute (18) Septic shock: Status: Acute (19) Hypoglycemia: Status: Acute (20) COPD (chronic obstructive pulmonary disease): Status: Acute (21) CAD (coronary artery disease): Status: Acute (22) Chronic respiratory failure with hypoxia: Status: Acute (23) Post covid-19 condition, unspecified: Status: Acute (24) Pneumonia due to influenza A virus: Status: Acute (25) Influenza A: Status: Acute (26) ATN (acute tubular necrosis): Status: Acute DS: Summary Hospital Course Hospital Course: this 77-year-old apparently was was sick at home for a while and when shortness of breath and increased to such a degree and and clearly mental status was altered and as well he was brought into the emergency room oxygen saturation 50- 60% and he does have a background of of COPD blood pressure was in the 50s as well and he was hypothermic the appearance certainly was a septic appearance he was fluid resuscitated and and in addition he was he was started on pressors as soon as possible but he clearly had prolonged hypotension and from that point forward remained an uric and when blood pressure was finally restored his mental status came back and he was clear and able to answer questions and was oriented x3 but the ARDS was a progressive issue with with worsening dyspnea my bedside echocardiogram indicated that there was evidence of an apical infarct at that point considered to be of und dated age and this supposedly was a background history of ischemic heart disease but the his cardiomyopathy was very advanced at best 20-25% ejection fraction and no critical valve disease or pericardial disease but as the day progressed he required intubation he was unable to sustain himself on noninvasive ventilation this was explained to him and he agreed to this and I explained to the family before proceeding and when I noted that he had had a distended abdomen with very tender right upper quadrant we did an ultrasound which indicated marked acute dilatation of the gallbladder up to 17 cm with considerable sludge and stones and surrounding fluid indicating acute cholecystitis eventually we brought him for a cholecystostomy tube under CT scan guidance but the gallbladder strength back down again and possibly a ball valving stone but his livedo was progressing his end-tidal CO2 dropped from 24-16 blood pressure diminishing oxygen saturations diminishing with increasing interstitial pulmonary edema and bilateral pleural effusions clearly he was developing cardiogenic shock and I recall the family who mated in to see him and indicated to them that the cardiogenic shock which I documented by repeat echo where only a small piece of the base was sarmad his ejection fraction was probably 10% was progressing and that ultimately this with lead to his demise and a decision for not only DNR was made but comfort measure was chosen and we stop support medications and maintained his fentanyl and he became asystolic and was declared at 18:12 hours and the family was here with me and was informed Status at Discharge Cognitive/behavioral status at discharge: Time Spent with Patient Time attestation: 120Total time managing care of this patient today 120____ minutes. Discharge coordination time: Greater than 30 minutes Specific discharge activities: patient is and the son and [id number] were instructed to get a home to contact us Quality: Safe Use of Opioids Does Pt have an Active Cancer Diagnosis on the Problem List?: No Quality: Stroke Does the patient have a stroke diagnosis?: No Physical Exam Vital Signs: Vital Signs: Last Vital Signs Temp 100.2 F 01/03/23 14:00 Pulse 69 01/03/23 17:21 Resp 22 H 01/03/23 17:38 BP 50/27 L 01/03/23 17:21 Pulse Ox 82 L 01/03/23 17:08 O2 Del Method 01/03/23 17:08 O2 Flow Rate 50 01/03/23 04:00 FiO2 50 01/03/23 17:08 BMI result Body Mass Index 24.2 developed diffuse livedo while still in sinus rhythm with dropping oxygen saturation diminishing carotid upstrokes and very markedly diminishing end-tidal CO2 indicating progressive cardiac failure on the vent on the ventilator and then at 18:12 hours became asystolic and the ventilator was stopped documented to be apneic no palpable pu DS: Data Data Completed and Pending Labs on day of discharge: Laboratory Results - last 24 hr 01/02/23 01/02/23 01/02/23 16:25 17:02 18:14 WBC RBC Hgb Hct MCV MCH MCHC RDW Plt Count MPV Immature Gran % (Auto) Neut % (Auto) Lymph % (Auto) [place] % (Auto) Eos % (Auto) Baso % (Auto) Lymph # (Auto) [place] # (Auto) Eos # (Auto) Baso # (Auto) Abs Immat Gran (auto) Absolute Neuts (auto) Absolute Nucleated RBC Nucleated RBC % (auto) Neutrophils % (Manual) Band Neutrophils % Monocytes % (Manual) Abs Neuts (Manual) Monocytes # (Manual) Dohle Bodies Platelet Estimate Large Platelets Plt Morphology Comment RBC Morphology Macrocytosis Pappenheimer Bodies Ovalocytes Rashad Cells Acanthocytes (Spur) Smear Path Review ESR PT 14.2 H INR 1.2 H APTT D-Dimer High Sensitivty VBG pH VBG pCO2 VBG pO2 VBG HCO3 VBG O2 Saturation VBG Base Excess Sodium Potassium Chloride Carbon Dioxide Anion Gap BUN Creatinine Estim Creat Clear Calc Estimated GFR POC Glucose 61 82 Random Glucose Osmolality Lactic Acid Lactic Acid F/U @ 2Hr Lactic Acid F/U @ 4Hr Calcium Phosphorus Magnesium Total Bilirubin AST ALT Alkaline Phosphatase Lactate Dehydrogenase Troponin I High Sens C-Reactive Protein B-Natriuretic Peptide Total Protein Albumin Lipase Vancomycin Trough Salicylates Urine Opiates Screen Urine Fentanyl Screen Acetaminophen Ur Barbiturates Screen Ur Phencyclidine Scrn Ur Amphetamines Screen U Benzodiazepines Scrn Urine Cocaine Screen U Marijuana (THC) Screen Respiratory Panel Beard Adenovirus (Rapid PCR) B.pert (TEM-PCR) B.parapertussis DNA PCR C. pneumoniae DNA (PCR) Coronavirus OC43 (PCR) Coronavirus HKU1 (PCR) Coronavirus 229E (PCR) Coronavirus NL63 (PCR) Hep Bs Antigen Hep Bs Antibody Hep B Core Total Ab Hepatitis C Ab (EIA) HIV 1&2 Ab/P24 Ag 4thGn Human Metapneumovir PCR Influenza A (RT-PCR) Influenza B (RT-PCR) M. pneumoniae (PCR) Parainfluenza 1 (PCR) Parainfluenza 2 (PCR) Parainfluenza 3 (PCR) Parainfluenza 4 (PCR) RSV (PCR) Entero/Rhino (PCR) SARS-CoV-2 RNA (RT-PCR) 01/02/23 01/02/23 01/02/23 19:31 22:16 22:16 WBC RBC Hgb Hct MCV MCH MCHC RDW Plt Count MPV Immature Gran % (Auto) Neut % (Auto) Lymph % (Auto) [place]ran % (Auto) Eos % (Auto) Baso % (Auto) Lymph # (Auto) [place]ran # (Auto) Eos # (Auto) Baso # (Auto) Abs Immat Gran (auto) Absolute Neuts (auto) Absolute Nucleated RBC Nucleated RBC % (auto) Neutrophils % (Manual) Band Neutrophils % Monocytes % (Manual) Abs Neuts (Manual) Monocytes # (Manual) Dohle Bodies Platelet Estimate Large Platelets Plt Morphology Comment RBC Morphology Macrocytosis Pappenheimer Bodies Ovalocytes [place] Cells Acanthocytes (Spur) Smear Path Review ESR PT INR APTT D-Dimer High Sensitivty VBG pH VBG pCO2 VBG pO2 VBG HCO3 VBG O2 Saturation VBG Base Excess Sodium Potassium Chloride Carbon Dioxide Anion Gap BUN Creatinine Estim Creat Clear Calc Estimated GFR POC Glucose Random Glucose Osmolality 290 Lactic Acid Lactic Acid F/U @ 2Hr 3.9 H* Lactic Acid F/U @ 4Hr Calcium Phosphorus Magnesium Total Bilirubin AST ALT Alkaline Phosphatase Lactate Dehydrogenase Troponin I High Sens 69.9 H C-Reactive Protein B-Natriuretic Peptide Total Protein Albumin Lipase Vancomycin Trough Salicylates Urine Opiates Screen Urine Fentanyl Screen Acetaminophen Ur Barbiturates Screen Ur Phencyclidine Scrn Ur Amphetamines Screen U Benzodiazepines Scrn Urine Cocaine Screen U Marijuana (THC) Screen Respiratory Panel Beard Adenovirus (Rapid PCR) B.pert (TEM-PCR) B.parapertussis DNA PCR C. pneumoniae DNA (PCR) Coronavirus OC43 (PCR) Coronavirus HKU1 (PCR) Coronavirus 229E (PCR) Coronavirus NL63 (PCR) Hep Bs Antigen Hep Bs Antibody Hep B Core Total Ab Hepatitis C Ab (EIA) HIV 1&2 Ab/P24 Ag 4thGn Human Metapneumovir PCR Influenza A (RT-PCR) Influenza B (RT-PCR) M. pneumoniae (PCR) Parainfluenza 1 (PCR) Parainfluenza 2 (PCR) Parainfluenza 3 (PCR) Parainfluenza 4 (PCR) RSV (PCR) Entero/Rhino (PCR) SARS-CoV-2 RNA (RT-PCR) 01/02/23 01/02/23 01/02/23 22:16 22:16 22:16 WBC RBC Hgb Hct MCV MCH MCHC RDW Plt Count MPV Immature Gran % (Auto) Neut % (Auto) Lymph % (Auto) [place] % (Auto) Eos % (Auto) Baso % (Auto) Lymph # (Auto) [place] # (Auto) Eos # (Auto) Baso # (Auto) Abs Immat Gran (auto) Absolute Neuts (auto) Absolute Nucleated RBC Nucleated RBC % (auto) Neutrophils % (Manual) Band Neutrophils % Monocytes % (Manual) Abs Neuts (Manual) Monocytes # (Manual) Dohle Bodies Platelet Estimate Large Platelets Plt Morphology Comment RBC Morphology Macrocytosis Pappenheimer Bodies Ovalocytes Rashad Cells Acanthocytes (Spur) Smear Path Review ESR PT INR APTT D-Dimer High Sensitivty VBG pH VBG pCO2 VBG pO2 VBG HCO3 VBG O2 Saturation VBG Base Excess Sodium Potassium Chloride Carbon Dioxide Anion Gap BUN Creatinine Estim Creat Clear Calc Estimated GFR POC Glucose Random Glucose Osmolality Lactic Acid Lactic Acid F/U @ 2Hr Lactic Acid F/U @ 4Hr Calcium Phosphorus Magnesium 1.9 Total Bilirubin AST ALT Alkaline Phosphatase Lactate Dehydrogenase Troponin I High Sens C-Reactive Protein 11.55 H B-Natriuretic Peptide 1108 H Total Protein Albumin Lipase Vancomycin Trough Salicylates < 5.0 L Urine Opiates Screen Urine Fentanyl Screen Acetaminophen < 17 Ur Barbiturates Screen Ur Phencyclidine Scrn Ur Amphetamines Screen U Benzodiazepines Scrn Urine Cocaine Screen U Marijuana (THC) Screen Respiratory Panel Beard Adenovirus (Rapid PCR) B.pert (TEM-PCR) B.parapertussis DNA PCR C. pneumoniae DNA (PCR) Coronavirus OC43 (PCR) Coronavirus HKU1 (PCR) Coronavirus 229E (PCR) Coronavirus NL63 (PCR) Hep Bs Antigen Negative Hep Bs Antibody NONREACTIVE Hep B Core Total Ab Nonreactive Hepatitis C Ab (EIA) Nonreactive HIV 1&2 Ab/P24 Ag 4thGn Nonreactive Human Metapneumovir PCR Influenza A (RT-PCR) Influenza B (RT-PCR) M. pneumoniae (PCR) Parainfluenza 1 (PCR) Parainfluenza 2 (PCR) Parainfluenza 3 (PCR) Parainfluenza 4 (PCR) RSV (PCR) Entero/Rhino (PCR) SARS-CoV-2 RNA (RT-PCR) 01/02/23 01/02/23 01/02/23 22:16 22:16 22:19 WBC RBC Hgb Hct MCV MCH MCHC RDW Plt Count MPV Immature Gran % (Auto) Neut % (Auto) Lymph % (Auto) [place] % (Auto) Eos % (Auto) Baso % (Auto) Lymph # (Auto) [place] # (Auto) Eos # (Auto) Baso # (Auto) Abs Immat Gran (auto) Absolute Neuts (auto) Absolute Nucleated RBC Nucleated RBC % (auto) Neutrophils % (Manual) Band Neutrophils % Monocytes % (Manual) Abs Neuts (Manual) Monocytes # (Manual) Dohle Bodies Platelet Estimate Large Platelets Plt Morphology Comment RBC Morphology Macrocytosis Pappenheimer Bodies Ovalocytes [place] Cells Acanthocytes (Spur) Smear Path Review ESR 8 PT INR APTT D-Dimer High Sensitivty VBG pH VBG pCO2 VBG pO2 VBG HCO3 VBG O2 Saturation VBG Base Excess Sodium Potassium Chloride Carbon Dioxide Anion Gap BUN Creatinine Estim Creat Clear Calc Estimated GFR POC Glucose Random Glucose Osmolality Lactic Acid Lactic Acid F/U @ 2Hr Lactic Acid F/U @ 4Hr 5.3 H* Calcium Phosphorus Magnesium Total Bilirubin AST ALT Alkaline Phosphatase Lactate Dehydrogenase Troponin I High Sens C-Reactive Protein B-Natriuretic Peptide Total Protein Albumin Lipase Vancomycin Trough < 2.0 L Salicylates Urine Opiates Screen Urine Fentanyl Screen Acetaminophen Ur Barbiturates Screen Ur Phencyclidine Scrn Ur Amphetamines Screen U Benzodiazepines Scrn Urine Cocaine Screen U Marijuana (THC) Screen Respiratory Panel Beard Adenovirus (Rapid PCR) B.pert (TEM-PCR) B.parapertussis DNA PCR C. pneumoniae DNA (PCR) Coronavirus OC43 (PCR) Coronavirus HKU1 (PCR) Coronavirus 229E (PCR) Coronavirus NL63 (PCR) Hep Bs Antigen Hep Bs Antibody Hep B Core Total Ab Hepatitis C Ab (EIA) HIV 1&2 Ab/P24 Ag 4thGn Human Metapneumovir PCR Influenza A (RT-PCR) Influenza B (RT-PCR) M. pneumoniae (PCR) Parainfluenza 1 (PCR) Parainfluenza 2 (PCR) Parainfluenza 3 (PCR) Parainfluenza 4 (PCR) RSV (PCR) Entero/Rhino (PCR) SARS-CoV-2 RNA (RT-PCR) 01/02/23 01/02/23 01/03/23 23:42 23:53 00:32 WBC RBC Hgb Hct MCV MCH MCHC RDW Plt Count MPV Immature Gran % (Auto) Neut % (Auto) Lymph % (Auto) [place] % (Auto) Eos % (Auto) Baso % (Auto) Lymph # (Auto) [place] # (Auto) Eos # (Auto) Baso # (Auto) Abs Immat Gran (auto) Absolute Neuts (auto) Absolute Nucleated RBC Nucleated RBC % (auto) Neutrophils % (Manual) Band Neutrophils % Monocytes % (Manual) Abs Neuts (Manual) Monocytes # (Manual) Dohle Bodies Platelet Estimate Large Platelets Plt Morphology Comment RBC Morphology Macrocytosis Pappenheimer Bodies Ovalocytes Rashad Cells Acanthocytes (Spur) Smear Path Review ESR PT INR APTT D-Dimer High Sensitivty VBG pH 7.27 L VBG pCO2 42 VBG pO2 55 VBG HCO3 19 L VBG O2 Saturation 81.0 VBG Base Excess -6.8 Sodium Potassium Chloride Carbon Dioxide Anion Gap BUN Creatinine Estim Creat Clear Calc Estimated GFR POC Glucose 144 H Random Glucose Osmolality Lactic Acid Lactic Acid F/U @ 2Hr Lactic Acid F/U @ 4Hr Calcium Phosphorus Magnesium Total Bilirubin AST ALT Alkaline Phosphatase Lactate Dehydrogenase Troponin I High Sens C-Reactive Protein B-Natriuretic Peptide Total Protein Albumin Lipase Vancomycin Trough Salicylates Urine Opiates Screen Not Detected Urine Fentanyl Screen Not Detected Acetaminophen Ur Barbiturates Screen Not Detected Ur Phencyclidine Scrn Not Detected Ur Amphetamines Screen Not Detected U Benzodiazepines Scrn Not Detected Urine Cocaine Screen Not Detected U Marijuana (THC) Screen Not Detected Respiratory Panel Beard Adenovirus (Rapid PCR) B.pert (TEM-PCR) B.parapertussis DNA PCR C. pneumoniae DNA (PCR) Coronavirus OC43 (PCR) Coronavirus HKU1 (PCR) Coronavirus 229E (PCR) Coronavirus NL63 (PCR) Hep Bs Antigen Hep Bs Antibody Hep B Core Total Ab Hepatitis C Ab (EIA) HIV 1&2 Ab/P24 Ag 4thGn Human Metapneumovir PCR Influenza A (RT-PCR) Influenza B (RT-PCR) M. pneumoniae (PCR) Parainfluenza 1 (PCR) Parainfluenza 2 (PCR) Parainfluenza 3 (PCR) Parainfluenza 4 (PCR) RSV (PCR) Entero/Rhino (PCR) SARS-CoV-2 RNA (RT-PCR) 01/03/23 01/03/23 01/03/23 04:06 04:11 04:12 WBC 51.3 H* RBC 2.93 L Hgb 9.6 L Hct 29.3 L MCV 100.0 H MCH 32.8 MCHC 32.8 RDW 19.2 H Plt Count 223 MPV 10.4 Immature Gran % (Auto) Cancelled Neut % (Auto) Cancelled Lymph % (Auto) Cancelled [place] % (Auto) Cancelled Eos % (Auto) Cancelled Baso % (Auto) Cancelled Lymph # (Auto) Cancelled [place] # (Auto) Cancelled Eos # (Auto) Cancelled Baso # (Auto) Cancelled Abs Immat Gran (auto) Cancelled Absolute Neuts (auto) Cancelled Absolute Nucleated RBC 0.180 H Nucleated RBC % (auto) 0.4 H Neutrophils % (Manual) 82 H Band Neutrophils % 16 H Monocytes % (Manual) 2 Abs Neuts (Manual) 50.3 H Monocytes # (Manual) 1.0 Dohle Bodies PRESENT Platelet Estimate NORMAL Large Platelets PRESENT Plt Morphology Comment NORMAL RBC Morphology NOTED Macrocytosis 1+ (5-14) Pappenheimer Bodies PRESENT Ovalocytes 1+ (5-14) Rashad Cells 1+ (0-2) Acanthocytes (Spur) 1+ (0-2) Smear Path Review SEE NOTE ESR PT INR APTT D-Dimer High Sensitivty VBG pH 7.23 L VBG pCO2 36 VBG pO2 57 VBG HCO3 15 L VBG O2 Saturation 82.0 VBG Base Excess -11.1 Sodium Potassium Chloride Carbon Dioxide Anion Gap BUN Creatinine Estim Creat Clear Calc Estimated GFR POC Glucose Random Glucose Osmolality Lactic Acid 5.1 H* Lactic Acid F/U @ 2Hr Lactic Acid F/U @ 4Hr Calcium Phosphorus Magnesium Total Bilirubin AST ALT Alkaline Phosphatase Lactate Dehydrogenase Troponin I High Sens C-Reactive Protein B-Natriuretic Peptide Total Protein Albumin Lipase Vancomycin Trough Salicylates Urine Opiates Screen Urine Fentanyl Screen Acetaminophen Ur Barbiturates Screen Ur Phencyclidine Scrn Ur Amphetamines Screen U Benzodiazepines Scrn Urine Cocaine Screen U Marijuana (THC) Screen Respiratory Panel Beard Adenovirus (Rapid PCR) B.pert (TEM-PCR) B.parapertussis DNA PCR C. pneumoniae DNA (PCR) Coronavirus OC43 (PCR) Coronavirus HKU1 (PCR) Coronavirus 229E (PCR) Coronavirus NL63 (PCR) Hep Bs Antigen Hep Bs Antibody Hep B Core Total Ab Hepatitis C Ab (EIA) HIV 1&2 Ab/P24 Ag 4thGn Human Metapneumovir PCR Influenza A (RT-PCR) Influenza B (RT-PCR) M. pneumoniae (PCR) Parainfluenza 1 (PCR) Parainfluenza 2 (PCR) Parainfluenza 3 (PCR) Parainfluenza 4 (PCR) RSV (PCR) Entero/Rhino (PCR) SARS-CoV-2 RNA (RT-PCR) 01/03/23 01/03/23 01/03/23 04:12 04:12 04:12 WBC RBC Hgb Hct MCV MCH MCHC RDW Plt Count MPV Immature Gran % (Auto) Neut % (Auto) Lymph % (Auto) [place] % (Auto) Eos % (Auto) Baso % (Auto) Lymph # (Auto) [place] # (Auto) Eos # (Auto) Baso # (Auto) Abs Immat Gran (auto) Absolute Neuts (auto) Absolute Nucleated RBC Nucleated RBC % (auto) Neutrophils % (Manual) Band Neutrophils % Monocytes % (Manual) Abs Neuts (Manual) Monocytes # (Manual) Dohle Bodies Platelet Estimate Large Platelets Plt Morphology Comment RBC Morphology Macrocytosis Pappenheimer Bodies Ovalocytes [place] Cells Acanthocytes (Spur) Smear Path Review ESR PT 19.7 H INR 1.7 H APTT 34.4 D-Dimer High Sensitivty 633 VBG pH VBG pCO2 VBG pO2 VBG HCO3 VBG O2 Saturation VBG Base Excess Sodium 136 Potassium 4.8 D Chloride 104 Carbon Dioxide 13 L Anion Gap 24 H BUN 31 H Creatinine 2.83 H Estim Creat Clear Calc 20.0 Estimated GFR 22 POC Glucose Random Glucose 195 H Osmolality Lactic Acid Lactic Acid F/U @ 2Hr Lactic Acid F/U @ 4Hr Calcium 8.0 L Phosphorus 6.5 H Magnesium 1.9 Total Bilirubin 5.5 H AST 358 H ALT 384 H Alkaline Phosphatase 98 Lactate Dehydrogenase 563 H Troponin I High Sens C-Reactive Protein 11.52 H B-Natriuretic Peptide 2141 H Total Protein 5.2 L Albumin 3.8 Lipase Vancomycin Trough Salicylates Urine Opiates Screen Urine Fentanyl Screen Acetaminophen Ur Barbiturates Screen Ur Phencyclidine Scrn Ur Amphetamines Screen U Benzodiazepines Scrn Urine Cocaine Screen U Marijuana (THC) Screen Respiratory Panel Beard Adenovirus (Rapid PCR) B.pert (TEM-PCR) B.parapertussis DNA PCR C. pneumoniae DNA (PCR) Coronavirus OC43 (PCR) Coronavirus HKU1 (PCR) Coronavirus 229E (PCR) Coronavirus NL63 (PCR) Hep Bs Antigen Hep Bs Antibody Hep B Core Total Ab Hepatitis C Ab (EIA) HIV 1&2 Ab/P24 Ag 4thGn Human Metapneumovir PCR Influenza A (RT-PCR) Influenza B (RT-PCR) M. pneumoniae (PCR) Parainfluenza 1 (PCR) Parainfluenza 2 (PCR) Parainfluenza 3 (PCR) Parainfluenza 4 (PCR) RSV (PCR) Entero/Rhino (PCR) SARS-CoV-2 RNA (RT-PCR) 01/03/23 01/03/23 01/03/23 04:14 05:56 06:23 WBC RBC Hgb Hct MCV MCH MCHC RDW Plt Count MPV Immature Gran % (Auto) Neut % (Auto) Lymph % (Auto) [place] % (Auto) Eos % (Auto) Baso % (Auto) Lymph # (Auto) [place] # (Auto) Eos # (Auto) Baso # (Auto) Abs Immat Gran (auto) Absolute Neuts (auto) Absolute Nucleated RBC Nucleated RBC % (auto) Neutrophils % (Manual) Band Neutrophils % Monocytes % (Manual) Abs Neuts (Manual) Monocytes # (Manual) Dohle Bodies Platelet Estimate Large Platelets Plt Morphology Comment RBC Morphology Macrocytosis Pappenheimer Bodies Ovalocytes Rashad Cells Acanthocytes (Spur) Smear Path Review ESR PT INR APTT D-Dimer High Sensitivty VBG pH VBG pCO2 VBG pO2 VBG HCO3 VBG O2 Saturation VBG Base Excess Sodium Potassium Chloride Carbon Dioxide Anion Gap BUN Creatinine Estim Creat Clear Calc Estimated GFR POC Glucose 239 H Random Glucose Osmolality Lactic Acid Lactic Acid F/U @ 2Hr Lactic Acid F/U @ 4Hr Calcium Phosphorus Magnesium Total Bilirubin AST ALT Alkaline Phosphatase Lactate Dehydrogenase Troponin I High Sens 146.4 H* D C-Reactive Protein B-Natriuretic Peptide Total Protein Albumin Lipase Vancomycin Trough Salicylates Urine Opiates Screen Urine Fentanyl Screen Acetaminophen Ur Barbiturates Screen Ur Phencyclidine Scrn Ur Amphetamines Screen U Benzodiazepines Scrn Urine Cocaine Screen U Marijuana (THC) Screen Respiratory Panel Beard See Note Adenovirus (Rapid PCR) Not Detected B.pert (TEM-PCR) Not Detected B.parapertussis DNA PCR Not Detected C. pneumoniae DNA (PCR) Not Detected Coronavirus OC43 (PCR) Not Detected Coronavirus HKU1 (PCR) Not Detected Coronavirus 229E (PCR) Not Detected Coronavirus NL63 (PCR) Not Detected Hep Bs Antigen Hep Bs Antibody Hep B Core Total Ab Hepatitis C Ab (EIA) HIV 1&2 Ab/P24 Ag 4thGn Human Metapneumovir PCR Not Detected Influenza A (RT-PCR) Not Detected Influenza B (RT-PCR) Not Detected M. pneumoniae (PCR) Not Detected Parainfluenza 1 (PCR) Not Detected Parainfluenza 2 (PCR) Not Detected Parainfluenza 3 (PCR) Not Detected Parainfluenza 4 (PCR) Not Detected RSV (PCR) Not Detected Entero/Rhino (PCR) Not Detected SARS-CoV-2 RNA (RT-PCR) Not Detected 01/03/23 01/03/23 01/03/23 06:31 07:51 08:46 WBC RBC Hgb Hct MCV MCH MCHC RDW Plt Count MPV Immature Gran % (Auto) Neut % (Auto) Lymph % (Auto) [place] % (Auto) Eos % (Auto) Baso % (Auto) Lymph # (Auto) [place] # (Auto) Eos # (Auto) Baso # (Auto) Abs Immat Gran (auto) Absolute Neuts (auto) Absolute Nucleated RBC Nucleated RBC % (auto) Neutrophils % (Manual) Band Neutrophils % Monocytes % (Manual) Abs Neuts (Manual) Monocytes # (Manual) Dohle Bodies Platelet Estimate Large Platelets Plt Morphology Comment RBC Morphology Macrocytosis Pappenheimer Bodies Ovalocytes [place] Cells Acanthocytes (Spur) Smear Path Review ESR PT INR APTT D-Dimer High Sensitivty VBG pH VBG pCO2 VBG pO2 VBG HCO3 VBG O2 Saturation VBG Base Excess Sodium Potassium Chloride Carbon Dioxide Anion Gap BUN Creatinine Estim Creat Clear Calc Estimated GFR POC Glucose Random Glucose Osmolality Lactic Acid Lactic Acid F/U @ 2Hr 4.7 H* Lactic Acid F/U @ 4Hr 5.8 H* Calcium Phosphorus Magnesium Total Bilirubin AST ALT Alkaline Phosphatase Lactate Dehydrogenase Troponin I High Sens C-Reactive Protein B-Natriuretic Peptide Total Protein Albumin Lipase 8 Vancomycin Trough Salicylates Urine Opiates Screen Urine Fentanyl Screen Acetaminophen Ur Barbiturates Screen Ur Phencyclidine Scrn Ur Amphetamines Screen U Benzodiazepines Scrn Urine Cocaine Screen U Marijuana (THC) Screen Respiratory Panel Beard Adenovirus (Rapid PCR) B.pert (TEM-PCR) B.parapertussis DNA PCR C. pneumoniae DNA (PCR) Coronavirus OC43 (PCR) Coronavirus HKU1 (PCR) Coronavirus 229E (PCR) Coronavirus NL63 (PCR) Hep Bs Antigen Hep Bs Antibody Hep B Core Total Ab Hepatitis C Ab (EIA) HIV 1&2 Ab/P24 Ag 4thGn Human Metapneumovir PCR Influenza A (RT-PCR) Influenza B (RT-PCR) M. pneumoniae (PCR) Parainfluenza 1 (PCR) Parainfluenza 2 (PCR) Parainfluenza 3 (PCR) Parainfluenza 4 (PCR) RSV (PCR) Entero/Rhino (PCR) SARS-CoV-2 RNA (RT-PCR) 01/03/23 12:16 WBC RBC Hgb Hct MCV MCH MCHC RDW Plt Count MPV Immature Gran % (Auto) Neut % (Auto) Lymph % (Auto) [place] % (Auto) Eos % (Auto) Baso % (Auto) Lymph # (Auto) [place] # (Auto) Eos # (Auto) Baso # (Auto) Abs Immat Gran (auto) Absolute Neuts (auto) Absolute Nucleated RBC Nucleated RBC % (auto) Neutrophils % (Manual) Band Neutrophils % Monocytes % (Manual) Abs Neuts (Manual) Monocytes # (Manual) Dohle Bodies Platelet Estimate Large Platelets Plt Morphology Comment RBC Morphology Macrocytosis Pappenheimer Bodies Ovalocytes Rashad Cells Acanthocytes (Spur) Smear Path Review ESR PT INR APTT D-Dimer High Sensitivty VBG pH VBG pCO2 VBG pO2 VBG HCO3 VBG O2 Saturation VBG Base Excess Sodium Potassium Chloride Carbon Dioxide Anion Gap BUN Creatinine Estim Creat Clear Calc Estimated GFR POC Glucose 212 H Random Glucose Osmolality Lactic Acid Lactic Acid F/U @ 2Hr Lactic Acid F/U @ 4Hr Calcium Phosphorus Magnesium Total Bilirubin AST ALT Alkaline Phosphatase Lactate Dehydrogenase Troponin I High Sens C-Reactive Protein B-Natriuretic Peptide Total Protein Albumin Lipase Vancomycin Trough Salicylates Urine Opiates Screen Urine Fentanyl Screen Acetaminophen Ur Barbiturates Screen Ur Phencyclidine Scrn Ur Amphetamines Screen U Benzodiazepines Scrn Urine Cocaine Screen U Marijuana (THC) Screen Respiratory Panel Beard Adenovirus (Rapid PCR) B.pert (TEM-PCR) B.parapertussis DNA PCR C. pneumoniae DNA (PCR) Coronavirus OC43 (PCR) Coronavirus HKU1 (PCR) Coronavirus 229E (PCR) Coronavirus NL63 (PCR) Hep Bs Antigen Hep Bs Antibody Hep B Core Total Ab Hepatitis C Ab (EIA) HIV 1&2 Ab/P24 Ag 4thGn Human Metapneumovir PCR Influenza A (RT-PCR) Influenza B (RT-PCR) M. pneumoniae (PCR) Parainfluenza 1 (PCR) Parainfluenza 2 (PCR) Parainfluenza 3 (PCR) Parainfluenza 4 (PCR) RSV (PCR) Entero/Rhino (PCR) SARS-CoV-2 RNA (RT-PCR) Preliminary micro results at discharge 01/02/23 17:00 Blood Culture - Preliminary Blood - Venous Prelim: GPC Gram Stain only Discharge Plan Discharge Patient Disposition: Discharge Diagnosis: cardiogenic shock acute myocardial infarction sepsis acute cholecystitis ARDS ATN Referrals: Marty Cassidy MD [Primary Care Provider] - 1 Week Discharge Medications: No Action metoprolol succinate 25 mg tablet extended release 24 hr 25 mg PO DAILY 90 Days Qty: 90 3RF atorvastatin 40 mg tablet 40 mg PO DAILY 90 Days Qty: 90 3RF ipratropium-albuterol 0.5 mg-3 mg(2.5 mg base)/3 mL solution for nebulization 3 ml inhalation QID PRN (Reason: for wheezing) Qty: 180 0RF omeprazole 20 mg Capsule,Delayed Release(Dr/Ec) 20 mg PO DAILY@0630 Qty: 30 0RF hydrochlorothiazide 25 mg tablet 25 mg PO DAILY albuterol sulfate [ProAir HFA] 90 mcg/actuation HFA aerosol inhaler 2 puff inhalation Q6H PRN (Reason: Wheezing) aspirin 81 mg tablet,delayed release (DR/EC) 81 mg PO DAILY
[2023-01-05 12:04] LABS: Absolute CD3 Count 1708 cells/uL (840-3060); Absolute CD4 Count 619 cells/uL (490-1740); Absolute CD8 Count 1064 cells/uL (180-1170); Absolute Lymphocytes 4672 cells/uL (850-3900); CD4 CD8 Ratio 0.58 (0.86-5.00); Percent CD3 Cells 37 % (57-85); Percent CD4 Cells 13 % (30-61); Percent CD8 Cells 23 % (12-42)
[2023-01-06 00:19] LABS: Prot Elec - Albumin 3.2 g/dL (3.8-4.8); Prot Elec - Alpha1 0.2 g/dL (0.2-0.3); Prot Elec - Alpha2 0.7 g/dL (0.5-0.9); Prot Elec - Beta 1 0.3 g/dL (0.4-0.6); Prot Elec - Beta 2 0.3 g/dL (0.2-0.5); Prot Elec - Gamma 0.6 g/dL (0.8-1.7); Prot Elec - Total Protein 5.2 g/dL (6.1-8.1)
[2023-01-08 11:09] LABS: PEU-Protein Creat Ratio Rand 0.244 (0.025-0.148); PEU-Rand. Prot/Creat Ratio 244 mg/g creat (25-148); PEU-Random Ur. Gamma Globulin 0 %; PEU-Random Urine A1 Globulin 0 %; PEU-Random Urine A2 Globulin 0 %; PEU-Random Urine Albumin 100 %; PEU-Random Urine Beta Globulin 0 %; PEU-Random Urine Creatinine 45 mg/dL (20-320); PEU-Random Urine Protein 11 mg/dL (5-25)
== END 2023-01-03 19:10 | disposition expired | DRG 871 ==
LOC: HO.ED 21:16 → HO.EDOVER 21:18 → HO.ICU 21:20
PROVIDERS: Admitting Provider Nurse Practitioner Family; Emergency Provider Emergency Medicine; PCP Internal Medicine; Visit Provider Internal Medicine Cardiovascular Disease
DX: A41.9 Sepsis, unspecified organism (principal); I21.29 ST elevation (STEMI) myocardial infarction involving other sites; J80 Acute respiratory distress syndrome; R65.21 Severe sepsis with septic shock; N17.0 Acute kidney failure with tubular necrosis; J44.1 Chronic obstructive pulmonary disease with (acute) exacerbation; I42.0 Dilated cardiomyopathy; K81.0 Acute cholecystitis; E83.42 Hypomagnesemia; I25.5 Ischemic cardiomyopathy; Z20.822 Contact with and (suspected) exposure to COVID-19; Z79.82 Long term (current) use of aspirin; Z79.899 Other long term (current) drug therapy
CPT/HCPCS: 36415; 70450; 71045; 71250; 74018; 74176; 76705; 80048; 80053; 80076; 80143; 80179; 80202; 80307; 81003; 82140; 82570; 82803; 82947; 83605; 83615; 83690; 83735; 83880; 83930; 84100; 84156; 84165; 84166; 84443; 84484; 85007; 85025; 85027; 85379; 85610; 85652; 85730; 86140; 86359; 86360; 86704; 86706; 86803; 87040; 87205; 87340; 87389; 87502; 87633; 87635; 87798; 93005; 93306; 94002; 94640; 94660; 94799; 99285; J1650; J1940; J2185; J2250; J2251; J2543; J2930; J3010; J3370; J3475; P9047